=== PATIENT | male | born 1955 | race Caucasian/White ===

== ENCOUNTER 2020-02-19 06:19 | Outpatient (REF) | payer MEDICARE, SELFPAY ==
[2020-02-19 08:23] LABS: Estimated Average Glucose 148 mg/dL; Hemoglobin A1c % 6.8 %
[2020-02-19 08:33] LABS: Alanine Aminotransferase 50 U/L (0-40); Albumin Level 4.4 g/dL (3.5-5.0); Alkaline Phosphatase 51 U/L (39-117); Anion Gap 19 (12-20); Aspartate Amino Transferase 32 U/L (5-37); Bilirubin Total 0.9 mg/dL (0.0-1.0); Blood Urea Nitrogen 14 mg/dL (9-16); Calcium 9.3 mg/dL (8.4-10.2); Carbon Dioxide 22 mmol/L (22-29); Chloride 103 mmol/L (96-108); Cholesterol 242 mg/dL; Estimated Glomerular Filt Rate > 60; Glucose Fasting 150 mg/dL (60-99); HDL Cholesterol 45 mg/dL; LDL Cholesterol Calculated 162 mg/dl; Sodium 139 mmol/L (135-145); Triglycerides 176 mg/dL
[2020-02-19 08:54] LABS: Prostate Specific Antigen Scr 0.22 ng/mL (<0.05-4.0); TSH reflex Free T4 0.88 mIU/mL (0.32-4.0)
== END 2020-02-19 06:20 | disposition home or self-care (01) ==
LOC: HO.LAB 06:19
PROVIDERS: Visit Provider Physician Assistant
DX: E66.09 Other obesity due to excess calories (principal); Z68.37 Body mass index [BMI] 37.0-37.9, adult; Z13.1 Encounter for screening for diabetes mellitus; Z12.5 Encounter for screening for malignant neoplasm of prostate; Z13.220 Encounter for screening for lipoid disorders
CPT/HCPCS: 80053; 80061; 83036; 84153; 84443

== ENCOUNTER 2020-03-01 06:22 | Outpatient (REF) | payer MEDICARE, SELFPAY | END 2020-03-01 06:23 | disposition home or self-care (01) | LOC: HO.LAB 06:22 | PROVIDERS: PCP Physician Assistant; Visit Provider Internal Medicine | DX: Z20.828 Contact with and (suspected) exposure to other viral communicable diseases (principal) | CPT/HCPCS: C9803; U0003 ==

== ENCOUNTER 2020-06-22 07:11 | Outpatient (REF) | payer MEDICARE, SELFPAY ==
[2020-06-22 08:28] LABS: Hematocrit 51.8 % (42-52); Hemoglobin 17.1 g/dl (14.0-18.0); Mean Corpuscular Hemoglobin 29.9 pg (27.0-33.0); Mean Corpuscular Volume 90.7 fL (80-98); Mean Platelet Volume 10.8 fL (9.4-12.4); Platelet Count 209 X10*3/uL (160-400); Red Blood Count 5.71 X10*6/uL (4.60-5.80); Red Cell Distribution Width 13.2 % (11.0-16.0); White Blood Count 17.6 X10*3/uL (4.8-10.8)
[2020-06-22 08:58] LABS: Alanine Aminotransferase 25 U/L (0-40); Albumin Level 4.3 g/dL (3.5-5.0); Alkaline Phosphatase 58 U/L (39-117); Anion Gap 18 (12-20); Aspartate Amino Transferase 16 U/L (5-37); Bilirubin Total 1.7 mg/dL (0.0-1.0); Blood Urea Nitrogen 10 mg/dL (9-16); Calcium 9.3 mg/dL (8.4-10.2); Carbon Dioxide 27 mmol/L (22-29); Chloride 98 mmol/L (96-108); Cholesterol 230 mg/dL; Estimated Glomerular Filt Rate > 60; Glucose Fasting 159 mg/dL (60-99); HDL Cholesterol 65 mg/dL; LDL Cholesterol Calculated 132 mg/dl; Sodium 139 mmol/L (135-145); Triglycerides 167 mg/dL
[2020-06-22 09:20] LABS: Estimated Average Glucose 126 mg/dL
[2020-06-22 11:14] LABS: Creatinine Urine 171.66 mg/dL; Microalbum/Creatinine Ratio Ur 12.8 ug/mg cr
== END 2020-06-22 07:12 | disposition home or self-care (01) ==
LOC: HO.LAB 07:11
PROVIDERS: PCP Physician Assistant; Visit Provider Physician Assistant
DX: E11.9 Type 2 diabetes mellitus without complications (principal); I10 Essential (primary) hypertension
CPT/HCPCS: 36415; 80053; 80061; 82043; 83036; 85027

== ENCOUNTER 2020-11-25 05:56 | Outpatient (REF) | payer MEDICARE, SELFPAY ==
[2020-11-25 07:37] LABS: Hematocrit 47.9 % (42-52); Hemoglobin 16.1 g/dl (14.0-18.0); Mean Corpuscular HGB Conc 33.6 g/dl (31.0-36.0); Mean Corpuscular Hemoglobin 30.3 pg (27.0-33.0); Mean Corpuscular Volume 90.2 fL (80-98); Mean Platelet Volume 10.8 fL (9.4-12.4); Platelet Count 179 X10*3/uL (160-400); Red Blood Count 5.31 X10*6/uL (4.60-5.80); Red Cell Distribution Width 12.4 % (11.0-16.0); White Blood Count 7.5 X10*3/uL (4.8-10.8)
[2020-11-25 07:49] LABS: Alanine Aminotransferase 30 U/L (0-40); Albumin Level 4.4 g/dL (3.5-5.0); Alkaline Phosphatase 47 U/L (39-117); Anion Gap 13 (12-20); Aspartate Amino Transferase 18 U/L (5-37); Bilirubin Total 0.8 mg/dL (0.0-1.0); Blood Urea Nitrogen 14 mg/dL (9-16); Calcium 9.8 mg/dL (8.4-10.2); Carbon Dioxide 29 mmol/L (22-29); Chloride 104 mmol/L (96-108); Cholesterol 163 mg/dL; Estimated Glomerular Filt Rate > 60; Glucose Fasting 136 mg/dL (60-99); HDL Cholesterol 43 mg/dL; LDL Cholesterol Calculated 96 mg/dl; Potassium 4.5 mmol/L (3.3-5.1); Sodium 141 mmol/L (135-145); Total Protein 6.4 g/dL (6.5-8.0); Triglycerides 124 mg/dL
[2020-11-25 08:11] LABS: Prostate Specific Antigen Scr 0.21 ng/mL (<0.05-4.0)
[2020-11-25 10:01] LABS: Estimated Average Glucose 134 mg/dL; Hemoglobin A1c % 6.3 %
== END 2020-11-25 05:57 | disposition home or self-care (01) ==
LOC: HO.LAB 05:56
PROVIDERS: PCP Physician Assistant; Visit Provider Physician Assistant
DX: I10 Essential (primary) hypertension (principal); E78.2 Mixed hyperlipidemia; E11.9 Type 2 diabetes mellitus without complications; Z12.5 Encounter for screening for malignant neoplasm of prostate
CPT/HCPCS: 36415; 80053; 80061; 83036; 84153; 85027

== ENCOUNTER 2021-04-03 05:48 | Outpatient (REF) | payer MEDICARE, SELFPAY ==
[2021-04-03 07:50] LABS: Estimated Average Glucose 143 mg/dL; Hemoglobin A1c % 6.6 %
[2021-04-03 08:05] LABS: Alanine Aminotransferase 42 U/L (0-40); Albumin Level 4.4 g/dL (3.5-5.0); Alkaline Phosphatase 51 U/L (39-117); Anion Gap 11 (12-20); Aspartate Amino Transferase 21 U/L (5-37); Bilirubin Total 0.8 mg/dL (0.0-1.0); Blood Urea Nitrogen 12 mg/dL (9-16); Carbon Dioxide 30 mmol/L (22-29); Chloride 104 mmol/L (96-108); Cholesterol 184 mg/dL; Estimated Glomerular Filt Rate > 60; Glucose Fasting 148 mg/dL (60-99); HDL Cholesterol 49 mg/dL; LDL Cholesterol Calculated 106 mg/dl; Potassium 4.9 mmol/L (3.3-5.1); Sodium 140 mmol/L (135-145); Total Protein 6.9 g/dL (6.5-8.0); Triglycerides 148 mg/dL
[2021-04-03 08:28] LABS: TSH reflex Free T4 1.18 uIU/mL (0.32-4.0)
== END 2021-04-03 05:49 | disposition home or self-care (01) ==
LOC: HO.LAB 05:48
PROVIDERS: PCP Physician Assistant; Visit Provider Physician Assistant
DX: E11.9 Type 2 diabetes mellitus without complications (principal); E78.2 Mixed hyperlipidemia
CPT/HCPCS: 36415; 80053; 80061; 83036; 84443

== ENCOUNTER → 2021-04-17 12:47 | Outpatient (BNVA) | payer MEDICARE, SELFPAY | PROVIDERS: PCP Physician Assistant; Referring Provider Physician Assistant; Visit Provider Physician Assistant Surgical ==

== ENCOUNTER → 2021-04-18 13:49 | Outpatient (BNVA) | payer MEDICARE, SELFPAY | PROVIDERS: PCP Physician Assistant; Referring Provider Physician Assistant; Visit Provider Physician Assistant | DX: Z12.11 Encounter for screening for malignant neoplasm of colon (principal) | CPT/HCPCS: 99202 ==

== ENCOUNTER → 2021-05-12 08:38 | Outpatient (BNVA) | payer MEDICARE, SELFPAY | PROVIDERS: PCP Physician Assistant; Visit Provider Surgery | DX: Z13.89 Encounter for screening for other disorder (principal) | CPT/HCPCS: Q3014 ==

== ENCOUNTER 2021-05-16 05:59 | Outpatient (REF) | payer MEDICARE, SELFPAY ==
--- NOTE | ~2021-05-16 | XR_ITS ---
EXAMINATION: XR CHEST CLINICAL INFORMATION: Obesity COMPARISON: None TECHNIQUE: 2 views of the chest were obtained. FINDINGS: No significant abnormality is noted involving the heart, lungs, mediastinum, bony thorax or soft tissues. XR/XR chest 2V IMPRESSION: Unremarkable examination.
[2021-05-16 06:26] LABS: MANUAL DIFF FLAG NO
--- NOTE | 2021-05-16 06:32 | ECG_ITS ---
Test Reason : pre op Blood Pressure : / mmHG Vent. Rate : 073 BPM Atrial Rate : 073 BPM P-R Int : 174 ms QRS Dur : 084 ms QT Int : 382 ms P-R-T Axes : 066 025 030 degrees QTc Int : 420 ms Sinus rhythm with Premature atrial complexes Low voltage QRS Borderline ECG No previous ECGs available Referred By: Zelalem Adams Electronically Signed By:SHASHA NGO
[2021-05-16 07:05] LABS: Basophils Percent Auto 0.6 % (0-2); Eosinophils Absolute Auto 0.1 X10*3/uL (0.0-0.4); Eosinophils Percent Auto 1.1 % (0-4); Hematocrit 49.4 % (42.0-52.0); Hemoglobin 16.4 g/dl (14.0-18.0); Imm Gran Abs Auto 0.03 X10*3/uL (0.00-0.03); Imm Gran Pct Auto 0.4 % (0.0-0.4); Lymphocytes Absolute Auto 2.1 X10*3/uL (1.2-4.9); Lymphocytes Percent Auto 29.2 % (20-40); Mean Corpuscular HGB Conc 33.2 g/dl (31.0-36.0); Mean Corpuscular Hemoglobin 30.6 pg (27.0-33.0); Mean Corpuscular Volume 92.2 fL (80.0-98.0); Mean Platelet Volume 10.7 fL (9.4-12.4); Monocytes Absolute Auto 0.7 X10*3/uL (0.1-1.2); Monocytes Percent Auto 9.6 % (2-11); Neutrophils Absolute Auto 4.2 x10*3/uL (2.0-8.3); Neutrophils Percent Auto 59.1 % (45-73); Platelet Count 185 X10*3/uL (160-400); Red Blood Count 5.36 X10*6/uL (4.60-5.80); Red Cell Distribution Width 12.7 % (11.0-16.0); White Blood Count 7.2 X10*3/uL (4.8-10.8)
[2021-05-16 07:44] LABS: Alanine Aminotransferase 43 U/L (0-40); Albumin Level 4.5 g/dL (3.5-5.0); Alkaline Phosphatase 49 U/L (39-117); Anion Gap 12 (12-20); Aspartate Amino Transferase 20 U/L (5-37); Bilirubin Total 0.8 mg/dL (0.0-1.0); Blood Urea Nitrogen 12 mg/dL (9-16); C Reactive Protein 0.11 mg/dL (< or = 0.50); Carbon Dioxide 29 mmol/L (22-29); Chloride 104 mmol/L (96-108); Cholesterol 185 mg/dL; Estimated Glomerular Filt Rate > 60; Glucose Random 188 mg/dL (60-115); HDL Cholesterol 48 mg/dL; Iron 120 mcg/dL (45-160); LDL Cholesterol Calculated 108 mg/dl; Potassium 4.8 mmol/L (3.3-5.1); Sodium 140 mmol/L (135-145); Total Protein 6.8 g/dL (6.5-8.0); Triglycerides 149 mg/dL
[2021-05-16 07:57] LABS: Ferritin 194 ng/mL (20-250); Insulin 26 uU/mL (2-29); TSH reflex Free T4 1.12 uIU/mL (0.32-4.0); Vitamin D 25-OH Total 27.1 ng/mL (>30)
[2021-05-16 08:20] LABS: Estimated Average Glucose 154 mg/dL
[2021-05-16 08:28] LABS: Percent Iron Saturation 37 % (15-50); Total Iron Binding Capacity 326 mcg/dL (228-428); Unsaturated Iron Binding 206 ug/dL
[2021-05-16 08:49] LABS: Prostate Specific Antigen Scr 0.38 ng/mL (<0.05-4.0)
[2021-05-16 08:59] LABS: Vitamin B12 677 pg/mL (200-900)
[2021-05-17 13:01] LABS: Calcium (PTHI) 9.8 mg/dL (8.6-10.3); PTHI 65 pg/mL (14-64)
[2021-05-19 06:27] LABS: Zinc 74 mcg/dL (60-130)
[2021-05-19 13:00] LABS: Vitamin B1 12 nmol/L (8-30)
[2021-05-20 18:41] LABS: Vitamin A 60 mcg/dL (38-98)
== END 2021-05-16 06:00 | disposition home or self-care (01) ==
LOC: HO.LAB 05:59
PROVIDERS: PCP Physician Assistant; Visit Provider Surgery
DX: Z12.5 Encounter for screening for malignant neoplasm of prostate (principal); E11.9 Type 2 diabetes mellitus without complications; E78.2 Mixed hyperlipidemia; E66.09 Other obesity due to excess calories; Z68.37 Body mass index [BMI] 37.0-37.9, adult
CPT/HCPCS: 36415; 71046; 80053; 80061; 82306; 82607; 82728; 82746; 83036; 83525; 83540; 83970; 84153; 84425; 84443; 84590; 84630; 85025; 86140; 93005

== ENCOUNTER 2021-05-18 07:47 | Outpatient (REF) | payer MEDICARE, SELFPAY ==
[2021-05-19 13:28] LABS: H Pylori Breath Test Negative (Negative)
== END 2021-05-18 07:48 | disposition home or self-care (01) ==
LOC: CF 07:47
PROVIDERS: Visit Provider Surgery
DX: E11.9 Type 2 diabetes mellitus without complications (principal); E78.2 Mixed hyperlipidemia; E66.09 Other obesity due to excess calories; Z68.37 Body mass index [BMI] 37.0-37.9, adult
CPT/HCPCS: 36415; 83013; 99211

== ENCOUNTER → 2021-05-30 09:00 | Outpatient (BNVA) | payer MEDICARE, SELFPAY | PROVIDERS: PCP Physician Assistant; Visit Provider Counselor Mental Health | DX: E66.9 Obesity, unspecified (principal); F10.21 Alcohol dependence, in remission | CPT/HCPCS: 90791 ==

== ENCOUNTER → 2021-06-12 08:14 | Outpatient (BNVA) | payer MEDICARE, SELFPAY | PROVIDERS: PCP Physician Assistant; Visit Provider Surgery | DX: E66.09 Other obesity due to excess calories (principal); Z68.34 Body mass index [BMI] 34.0-34.9, adult | CPT/HCPCS: Q3014 ==

== ENCOUNTER → 2021-06-16 08:17 | Outpatient (BNVA) | payer MEDICARE, SELFPAY | PROVIDERS: PCP Physician Assistant; Visit Provider Dietitian, Registered | DX: E66.9 Obesity, unspecified (principal); E11.9 Type 2 diabetes mellitus without complications; Z71.3 Dietary counseling and surveillance | CPT/HCPCS: 97802 ==

== ENCOUNTER → 2021-06-21 07:35 | Outpatient (REF) | payer MEDICARE, SELFPAY ==
--- NOTE | ~2021-06-21 | NM_ITS ---
Lexiscan Myocardial perfusion study Indication: Preoperative vascular evaluation Technique: The patient was brought in for a Lexiscan perfusion study on 06/21/2021 and was injected 0.4 mg of Lexiscan intravenously. Within a minute of this injection 40 mCi of sestamibi was given intravenously. Images were obtained using the SPECT gamma camera interlaced with the gating device. Images were obtained in supine position. Resting perfusion study was performed on 06/22/2021. Patient was administered 40 mCi of sestamibi intravenously at rest. Images were then obtained in supine position. Total DLP 157mGy-cm. Images were processed with the software and compared side to side in short axis, horizontal long axis and vertical long axis views. Findings: Raw acquisition was reviewed. The stress perfusion study showed diminished tracer uptake along the inferolateral wall. With CT at admission correction, there is some improvement but not entirely. The gated study shows normal LV systolic function with calculated LVEF of 61%. LV cavity is normal in size. The gated study shows normal wall thickening and contraction of segments. Resting study shows diminished tracer uptake along the inferolateral wall. There is significant improvement with CT at admission correction suggestive of diaphragmatic attenuation artifact. Gating at rest reveals normal wall motion with ejection fraction at 52%. The findings are consistent with partially reversible inferolateral defect. NM/NM ranjit perf SPECT rest & str Impression: 1. Myocardial perfusion imaging study shows inferolateral defect with reversible/fixed components. Cannot differentiate if it is from body habitus or ischemia. 2. Gated LVEF is 61% during stress and 52% during rest. 3. Transient ischemic dilatation not present. EKG component of the test reported separately.
--- NOTE | 2021-06-21 07:48 | CA_ITS ---
Acquisition Time: 2021-06-21 08:06:39 Total Exercise Time: 00:02:00 Test Indications: PREOP Medications: SEE CHART Protocol: LEXISCAN Max HR: 107 BPM 70% of Pred: 152 BPM Max BP: 138/084 mmHG Max Work Load: 1.6 METS Pharmacological stress test with Lexiscan injection, while walking on treadmill, without anginal symptoms, with isolated PACs, with normotensive response to injection, with nondiagnostic EKG for ischemia. Nuclear images pending. Test reviewed with Dr Garzon. Referred By: Zelalem Adams Overread By: BARRINGTON GAFFNEY
== END ==
LOC: HO.CARD 07:35
PROVIDERS: Visit Provider Surgery
DX: R94.31 Abnormal electrocardiogram [ECG] [EKG] (principal)
CPT/HCPCS: 78452; 93017; A9500; J0280; J2785

== ENCOUNTER → 2021-06-26 08:17 | Outpatient (BNVA) | payer MEDICARE, SELFPAY | PROVIDERS: PCP Physician Assistant; Visit Provider Surgery | DX: E66.9 Obesity, unspecified (principal); Z68.35 Body mass index [BMI] 35.0-35.9, adult | CPT/HCPCS: Q3014 ==

== ENCOUNTER → 2021-06-28 07:12 | Outpatient (REF) | payer MEDICARE, SELFPAY ==
--- NOTE | 2021-06-28 07:16 | CA_ITS ---
Transthoracic Echocardiogram Patient (Last, First, Middle): Brooks Bower, Gender: Male Date of : 1955 Age: 66 Procedure Date: 06/28/2021 Procedure Type: Transthoracic Echocardiogram Location: OP Height: 195.58 cm Weight: 135.17 kg BSA: 2.65 m2 Heart Rate: bpm BP: 132 / 74 mmHg Manager Collection: YR/TO Referring MD: Zelalem Adams MD Director Security Management: Herb Puri MD Symptoms: R94.31 - Abnormal electrocardiogram [ECG] [EKG] Study Quality: Fair/Contrast ECG Rhythm: Sinus Conclusions: - 1. Normal LV systolic function with grade 1 diastolic dysfunction 2. Normal cardiac valvular Doppler 3. Mildly dilated ascending aorta 4. Normal RV systolic pressure 5. No pericardial effusion Findings Procedure Information Contrast agent, definity, is being given per protocol without apparent complications. Left Ventricle Normal left ventricular size, thickness, and systolic function. The visually estimated ejection fraction is between 60-65%. Spectral Doppler is indicative of an impaired relaxation filling pattern. E/E prime ratio is <8, consistent with normal filling pressures. Evidence suggests grade I (mild) diastolic dysfunction. there is mild focal hypertrophy of the basal septum without obstructive physiology Right Ventricle Normal right ventricular cavity size and systolic function. Atria The left atrium is normal in size. Interatrial shunt cannot be excluded. The right atrium was not well visualized. Aortic Valve The aortic valve structure and function is likely normal. There is no aortic valve stenosis. There is no aortic valve regurgitation. Mitral Valve Likely normal mitral valve structure and function. There is trace mitral valve regurgitation. There is no mitral valve stenosis. Pulmonic Valve The pulmonic valve was not well visualized. Tricuspid Valve Likely normal tricuspid valve structure and function. There is trace tricuspid valve regurgitation. The right ventricular systolic pressure is normal. The right ventricular systolic pressure is 12 mmHg. Normal right atrial pressure. There is no evidence of pulmonary hypertension. Great Vessels The pulmonary artery was not well visualized. There is mild dilatation of the ascending aorta measuring 3.80 cm. Venous The inferior vena cava is normal in size and collapses greater than 50% with inspiration. Pericardium/Pleural There is no evidence of pericardial effusion. Prior Study Comparison No prior study available for comparison. Measurements 2D Linear Measurements IVSd: 0.95 0.6-0.9/0.6-1.0 cm LVIDd: 4.37 3.9-5.3/4.2-5.9 cm LVIDd Index: 1.65 2.4-3.2/2.2-3.1 cm/m2 LVIDs: 3.08 2.0-3.6 cm LVPWd: 1.08 0.7-1.1 cm LA Diam: 4.00 2.7-3.8/3.0-4.0 cm LAIDs Index: 1.51 1.5-2.3 cm/m2 LV Mass: 186.35 67-162/88-224 g LV Mass Index: 70.32 43-95/49-115 g/m2 LVOT Diam: 2.60 3.0+(-)1.3 cm 2D Systolic Function EF 4C: 62.70 >55% EF 2C: 69.10 >55% EF BiP: 65.30 >55% Mitral Valve MV Pk E: 0.62 MV PK A: 0.95 MV Decel Time: 288.00 E/A: 0.70 E'Lateral: 5.66 E'Medial: 6.20 E/E' Med: 10.00 E/E' Lat: 11.00 PHT: 84.00 MVA PHT: 2.62 Decel [place]: 2.16 Aortic Valve AoV Pk Wilber: 1.07 AoV Mn Wilber: 0.76 AoV VTI: 0.23 AoV Pk Grad: 5.00 Aov Mn Grad: 3.00 KHOI Cont.VTI: 4.27 LVOT LVOT Pk Wilber: 1.01 LVOT Mn Wilber: 0.60 LVOT VTI: 0.18 LVOT Pk Grad: 4.00 LVOT Mn Grad: 2.00 LVOT Diam: 2.60 LVOT Area: 5.31 Diastolic Function MV Pk E: 0.62 MV Pk A: 0.95 E/A: 0.70 E'Medial: 6.20 E/E' Med: 10.00 E' Laterial: 5.66 E/E' Lat: 11.00 Right Ventricle TAPSE (mm): 20.90 TVS' Wilber: 13.20 Tricuspid Valve TR Pk Wilber: 1.49 TR Pk Grad: 9.00 RA Press: 3.00 RVSP: 12.00 Great Vessels Aorta Sinus of Valsalva: 3.69 2.0-3.[address] [place]: 3.30 1.7-3.4 cm Ao Asc: 3.80 2.1-3.4 cm Ao Arch: 3.30 Updated in Other Vendor System with Status of Final Herb Puri MD electronically signed on 06/29/2021 11:46:33 AM with status of Final
== END ==
LOC: HO.CARD 07:12
PROVIDERS: PCP Physician Assistant; Visit Provider Surgery
DX: Z01.810 Encounter for preprocedural cardiovascular examination (principal); R94.31 Abnormal electrocardiogram [ECG] [EKG]; E66.9 Obesity, unspecified
CPT/HCPCS: 93306; 99202; Q9957

== ENCOUNTER 2021-06-29 09:33 | Outpatient (REF) | payer MEDICARE, SELFPAY ==
--- NOTE | ~2021-06-29 | FL_ITS ---
EXAMINATION: XR FLUOROSCOPY UPPER GI WITH AIR CLINICAL INFORMATION: Obesity due to excess calories. COMPARISON: None TECHNIQUE: Routine upper GI contrast study was performed in upright and lying position. FINDINGS: Following oral administration of thick barium and effervescent granules, there is normal propagation of bolus from the oral cavity through the pharynx, esophagus into stomach without any evidence of obstruction, narrowing or stricture. No laryngeal penetration or aspiration seen. Mild prominent cricoesophageal sphincter is seen. On placing patient supine and prone, there is mild gastroesophageal reflux and a small sliding hiatal hernia. The rest of the visualized stomach, duodenum bulb and the sweep is normal caliber and course. The mucosal pattern of the stomach and the duodenum is normal except for a small diverticulum along the second segment of the duodenum within the C-loop. FLUOROSCOPY TIME: 2.1 minutes DOSE AREA PRODUCT: 29.5 uGy-m2 (microgray-meter squared) FL/FL upper GI w air IMPRESSION: Small sliding hiatal hernia with mild gastroesophageal reflux.
--- NOTE | ~2021-06-29 | US_ITS ---
EXAMINATION: US COMPLETE ABDOMEN WITH LIVER ELASTOGRAPHY CLINICAL INFORMATION: Obesity COMPARISON: None. TECHNIQUE: Real-time imaging of the abdominal viscera. Noninvasive ultrasound liver fibrosis assessment is performed using Marco A ElastPQ point quantification shear wave elastography (2D-SWE) with a C5-2 MHz transducer. Multiple elastography samples are obtained. FINDINGS: PANCREAS: Not well visualized due to overlying bowel gas. ABDOMINAL AORTA: Not well visualized due to bowel gas INFERIOR VENA CAVA: Not well visualized due to bowel gas LIVER: Liver echotexture is increased. Liver is normal in size and contour. No focal liver lesion or biliary duct dilatation. The right lobe measures 17 cm in length. The left lobe measures 13 cm in length. Portal flow is normal/hepatopedal Shear wave liver elastography median stiffness is 1.2 m/s (reference: normal median stiffness is 1.3 m/s or less). IQR/median stiffness to assess sampling precision is 0.11 (reference: good quality data set is IQR/median stiffness of 0.15 or less). GALLBLADDER: Gallbladder is not well visualized. There are gallstones in the gallbladder. Gallbladder appears normal in size. COMMON BILE DUCT: Normal in caliber measuring 0.4 cm in diameter. RIGHT KIDNEY: There is a 7 mm echogenic density in the lower pole suggestive of a stone. No hydronephrosis. No focal parenchymal lesions. The kidney measures 11.3 cm in maximum dimension. LEFT KIDNEY: There are 2 stones in the lower pole measuring 4 and 5 mm. There is a 1 cm simple cyst exophytic to the lateral lower pole. No hydronephrosis. The kidney measures 12.8 cm in maximum dimension. SPLEEN: Normal. The spleen measures 11 cm in maximum dimension. FREE FLUID: None. US/US abdomen comp w elastography IMPRESSION: 1. Impression: Limited exam. Echogenic liver. Gallstones. Bilateral renal stones and left renal cyst. Limited visualization of the pancreas, aorta, IVC and gallbladder. 2. Liver elastography: Adequate liver sampling. Normal liver stiffness. REFERENCE: Society of Radiologists in Ultrasound Liver Stiffness Thresholds (2020): LIVER STIFFNESS THRESHOLDS: *Liver Stiffness equal or less than 1.3 m/s: High probability of being normal. *Liver Stiffness less than 1.7 m/s: In the absence of other known clinical signs, rules out compensated advanced chronic liver disease. *Liver Stiffness 1.7-2.1 m/s: Suggestive of compensated advanced chronic liver disease but need further test for confirmation. *Liver Stiffness over 2.1 m/s: Rules in compensated advanced chronic liver disease. *Liver Stiffness over 2.4 m/s: Suggestive of clinically significant portal hypertension. QUALITY OF DATA SET: *IQR/Median value equal or less than 0.15 implies a quality data set. *IQR/Median value over 0.15 implies a poor quality data set. SIGNIFICANT CHANGE FROM PRIOR EXAM: Significant change if liver stiffness measurement is 10% or greater from prior exam. OTHER CONSIDERATIONS: The stage of liver fibrosis may be overestimated in the setting of acute hepatitis, liver inflammation, elevated liver function tests, hepatic vascular congestion, obstructive cholestasis, non-fasting state, and infiltrative diseases such as amyloidosis and lymphoma. In some patients with NAFLD, the liver stiffness thresholds for compensated advanced chronic liver disease may be lower. In causes other than viral hepatitis and NAFLD, liver stiffness thresholds are not well established.
== END 2021-06-29 09:34 | disposition home or self-care (01) ==
LOC: HO.US 09:33
PROVIDERS: Visit Provider Surgery
DX: E66.09 Other obesity due to excess calories (principal); Z68.37 Body mass index [BMI] 37.0-37.9, adult; E11.9 Type 2 diabetes mellitus without complications; E78.2 Mixed hyperlipidemia
CPT/HCPCS: 74246; 76705; 76981

== ENCOUNTER → 2021-06-30 12:45 | Outpatient (BNVA) | payer MEDICARE, SELFPAY | PROVIDERS: PCP Physician Assistant; Referring Provider Physician Assistant; Visit Provider Surgery | DX: Z13.89 Encounter for screening for other disorder (principal) ==

== ENCOUNTER 2021-07-04 06:16 | Inpatient (IN) | payer MEDICARE, SELFPAY ==
[2021-06-27 06:20] LABS: MANUAL DIFF FLAG NO
[2021-06-27 07:41] LABS: Basophils Percent Auto 0.4 % (0-2); Eosinophils Absolute Auto 0.1 X10*3/uL (0.0-0.4); Eosinophils Percent Auto 0.9 % (0-4); Hematocrit 51.3 % (42.0-52.0); Hemoglobin 16.9 g/dl (14.0-18.0); Imm Gran Abs Auto 0.01 X10*3/uL (0.00-0.03); Imm Gran Pct Auto 0.1 % (0.0-0.4); Lymphocytes Absolute Auto 1.9 X10*3/uL (1.2-4.9); Lymphocytes Percent Auto 27.5 % (20-40); Mean Corpuscular HGB Conc 32.9 g/dl (31.0-36.0); Mean Corpuscular Hemoglobin 29.9 pg (27.0-33.0); Mean Corpuscular Volume 90.8 fL (80.0-98.0); Mean Platelet Volume 11.4 fL (9.4-12.4); Monocytes Absolute Auto 0.8 X10*3/uL (0.1-1.2); Monocytes Percent Auto 11.9 % (2-11); Neutrophils Absolute Auto 4.1 x10*3/uL (2.0-8.3); Neutrophils Percent Auto 59.2 % (45-73); Platelet Count 179 X10*3/uL (160-400); Red Blood Count 5.65 X10*6/uL (4.60-5.80); Red Cell Distribution Width 12.5 % (11.0-16.0); White Blood Count 6.9 X10*3/uL (4.8-10.8)
[2021-06-27 07:57] LABS: INTERNATIONAL NORM RATIO 1.1 (0.9-1.1); Prothrombin Time 12.3 SEC (9.9-13.0)
[2021-06-27 08:00] LABS: Partial Thromboplastin Time 43.7 SEC (24.1-38.0)
[2021-06-27 08:04] LABS: Estimated Average Glucose 123 mg/dL; Hemoglobin A1c % 5.9 %
[2021-06-27 08:05] LABS: Alanine Aminotransferase 40 U/L (0-40); Albumin Level 4.7 g/dL (3.5-5.0); Alkaline Phosphatase 51 U/L (39-117); Anion Gap 12 (12-20); Aspartate Amino Transferase 23 U/L (5-37); Bilirubin Total 1.1 mg/dL (0.0-1.0); Blood Urea Nitrogen 15 mg/dL (9-16); Calcium 10.3 mg/dL (8.4-10.2); Carbon Dioxide 29 mmol/L (22-29); Chloride 103 mmol/L (96-108); Cholesterol 166 mg/dL; Estimated Glomerular Filt Rate > 60; Glucose Random 113 mg/dL (60-115); HDL Cholesterol 36 mg/dL; LDL Cholesterol Calculated 105 mg/dl; Potassium 4.3 mmol/L (3.3-5.1); Sodium 140 mmol/L (135-145); Total Protein 7.1 g/dL (6.5-8.0); Triglycerides 129 mg/dL
[2021-06-27 08:27] LABS: Insulin 13 uU/mL (2-29); TSH reflex Free T4 1.38 uIU/mL (0.32-4.0)
[2021-06-29 11:48] VITALS: BP 156/78; PULSE 68; RESP 20; O2SAT 97; BMI 35.3
--- NOTE | 2021-06-29 12:06 | HO.ANESPROP2 ---
Documented by User: Nicolle Schneider NP 06/29/21 12:21 HPI - Anesthesia Eval Consult details Narrative: 66yo M for Gastrectomy Sleeve,EGD,poss diaphragmatic hernia,poss ventral hernia,poss open, Per Cardiology In the recent EKG, underlying rhythm was sinus at 73/Min; no significant ST-T changes and otherwise unremarkable. In the stress perfusion imaging, there was inferolateral defect with reversible/fixed components.? Could not definitively say if it is from his body weight or from true CAD/ischemia. Echocardiogram was just completed and yet to be reviewed. Overall, discussed about the findings with patient.? Offered additional testing with a diagnostic cardiac catheterization.? He stated that he would rather not have anything else beyond what he has already had so far.? Hence may proceed with the proposed bariatric surgery as planned.? Cardiac risk would be considered intermediate.? This was discussed with the patient including risk of perioperative myocardial infarction.? He understands.? May proceed as planned. Discussed risk r/t anesthesia and unknown CAD/ischemia. Pt verbalized understanding. Would like to proceed as described by supply specialist above. [facility] Active Problems Active Problems: All Active Problems (Updated 06/29/21 @ 12:01 by Mounika Jones RN) Screening for diabetes mellitus (DM) (Acute) Screening for hypercholesterolemia (Acute) Screening PSA (prostate specific antigen) (Acute) Obese (Acute) Colon cancer screening (Acute) DMII (diabetes mellitus, type 2) (Acute) HLD (hyperlipidemia) (Acute) Medicare annual wellness visit, initial (Acute) Tendinopathy of left shoulder (Acute) BMI 36.0-36.9,adult (Acute) Vitamin D deficiency (Acute) Abnormal EKG (Acute) BMI 35.0-35.9,adult (Acute) GERD (gastroesophageal reflux disease) (Acute) Preoperative cardiovascular examination (Acute) Abnormal myocardial perfusion study (Acute) Migraines (Acute) DJD (degenerative joint disease) (Acute) Obesity (BMI 30.0-34.9) (Acute) Past Medical History Medical History (Updated 06/29/21 @ 12:01 by Mounika Jones RN) Arthritis COVID-19 vaccine series completed Diabetes DJD (degenerative joint disease) Elevated cholesterol Lumbar disc disease Migraines Obesity (BMI 30.0-34.9) Family History Family History Father Diabetes Heart problem Mother Breast cancer Diverticulitis Family history of problems with anesthesia: No Surgical History Surgical History (Updated 06/29/21 @ 11:44 by Mounika Jones RN) H/O colonoscopy Hernia Hx of arthroscopic knee surgery Hx of tooth extraction Rupture of right patellar tendon History of Problems with Anesthesia: No Social History Social History Housing: House Are you a primary careers adviser to a significant other at home: No Do you presently have visiting nurse or other home services: No Alcohol intake: current Alcohol intake frequency: does not drink Patient Tobacco Use Status: Former Tobacco user Quit Date: age 28 Tobacco use type: Cigarette Years Smoked: 10 e-Cigarette/Vaping Use: Never Used Use of substances other than those prescribed or required for medical reasons: No Have you been hit, kicked, punched, or otherwise hurt by someone within the past year? If so, by whom?: No Are you DNR?: No Advance Directives Information Provided: Yes (brochure given) Advance Directives on File: No Recently lost weight without trying: No Eating poorly because of decreased appetite: No Nutrition Risks: No Nutritional Risk Poor oral hygiene: No (upper & lower full dentures) Narrative Narrative: No recent illness No CP/SOB with > 4 mets Meds Allergies Allergy/AdvReac Type Severity Reaction Status Date / Time No Known Allergies Allergy Verified 07/04/21 06:33 [No Known Allergies*] Home Medications Medication Instructions Recorded Confirmed Last Taken Type multivitamin 1 tab PO DAILY 06/29/21 07/04/21 07/03/21 History topiramate 25 mg tablet 25 mg PO BEDTIME 06/29/21 07/04/21 07/03/21 History Exam Exam Date and Time: June 29, 2021 1206 Height,Weight and Vital Signs: Height 6 ft 5 in Weight 135.1 kg Last Vital Signs Pulse 68 06/29/21 11:48 Resp 20 06/29/21 11:48 BP 156/78 H 06/29/21 11:48 Pulse Ox 97 06/29/21 11:48 Pertinent Lab Results Pertinent Lab Results: Laboratory Tests 06/27/21 06/27/21 06/27/21 06:07 06:07 06:07 WBC 6.9 RBC 5.65 Hgb 16.9 Hct 51.3 MCV 90.8 MCH 29.9 MCHC 32.9 RDW 12.5 Plt Count 179 MPV 11.4 Immature Gran % (Auto) 0.1 Neut % (Auto) 59.2 Lymph % (Auto) 27.5 [place] % (Auto) 11.9 H Eos % (Auto) 0.9 Baso % (Auto) 0.4 Lymph # (Auto) 1.9 [place] # (Auto) 0.8 Eos # (Auto) 0.1 Baso # (Auto) 0.0 Abs Immat Gran (auto) 0.01 Absolute Neuts (auto) 4.1 Absolute Nucleated RBC 0.000 Nucleated RBC % (auto) 0.0 PT 12.3 INR 1.1 APTT 43.7 H Sodium 140 Potassium 4.3 Chloride 103 Carbon Dioxide 29 Anion Gap 12 BUN 15 Creatinine 0.87 Estim Creat Clear Calc TNP Estimated GFR > 60 Random Glucose 113 D Estimat Average Glucose Hemoglobin A1c % Insulin Level 13 Calcium 10.3 H Total Bilirubin 1.1 H AST 23 ALT 40 Alkaline Phosphatase 51 C-Reactive Protein 0.10 Total Protein 7.1 Albumin 4.7 Triglycerides 129 Cholesterol 166 LDL Cholesterol, Calc 105 HDL Cholesterol 36 D TSH 1.38 Blood Type Antibody Screen 06/27/21 06/27/21 06:07 06:07 WBC RBC Hgb Hct MCV MCH MCHC RDW Plt Count MPV Immature Gran % (Auto) Neut % (Auto) Lymph % (Auto) [place] % (Auto) Eos % (Auto) Baso % (Auto) Lymph # (Auto) [place] # (Auto) Eos # (Auto) Baso # (Auto) Abs Immat Gran (auto) Absolute Neuts (auto) Absolute Nucleated RBC Nucleated RBC % (auto) PT INR APTT Sodium Potassium Chloride Carbon Dioxide Anion Gap BUN Creatinine Estim Creat Clear Calc Estimated GFR Random Glucose Estimat Average Glucose 123 Hemoglobin A1c % 5.9 Insulin Level Calcium Total Bilirubin AST ALT Alkaline Phosphatase C-Reactive Protein Total Protein Albumin Triglycerides Cholesterol LDL Cholesterol, Calc HDL Cholesterol TSH Blood Type AB Positive Antibody Screen NEGATIVE Narrative Narrative: EKG 04/2021 Vent. Rate : 073 BPM ? ? Atrial Rate : 073 BPM ?? P-R Int : 174 ms? QRS Dur : 084 ms ? ? QT Int : 382 ms ? ? ? P-R-T Axes : 066 025 030 degrees ?? QTc Int : 420 ms ? Sinus rhythm with Premature atrial complexes Low voltage QRS Borderline ECG No previous ECGs available ECHO 06/2021 Conclusions: - 1.? Normal LV systolic function with grade 1 diastolic ? dysfunction? 2.? Normal cardiac valvular Doppler? 3. Mildly dilated ascending aorta? 4.? Normal RV systolic pressure? 5.? No pericardial effusion? ? ? NM ranjit perf SPECT rest & str 05/2021 Impression: ? 1.? Myocardial perfusion imaging study shows inferolateral defect with reversible/fixed components. Cannot differentiate if it is from body habitus or ischemia. 2.? Gated LVEF is 61% during stress and 52% during rest. 3. Transient ischemic dilatation not present. ? EKG component of the test reported separately. (Nondiagnostic) Airway Mallampati Class: II (Small mouth) TM Dist: >3cm Neck ROM: Full Denture: Upper and Lower Heart: RRR Lungs: CTAB Assessment and Plan Assessment Anesthesia Assessment: Anesthesia Plan Discussed and PAT Visit Final Anesthetic Review Family History of Problems with Anesthesia: No History of Problems with Anesthesia: No Documented by User: Christopher Tran MD 07/04/21 07:27 [facility] Past Medical History Medical History (Updated 06/29/21 @ 12:01 by Mounika Jones RN) Arthritis COVID-19 vaccine series completed Diabetes DJD (degenerative joint disease) Elevated cholesterol Lumbar disc disease Migraines Obesity (BMI 30.0-34.9) Family History Family History Father Diabetes Heart problem Mother Breast cancer Diverticulitis Surgical History Surgical History (Updated 06/29/21 @ 11:44 by Mounika Jones RN) H/O colonoscopy Hernia Hx of arthroscopic knee surgery Hx of tooth extraction Rupture of right patellar tendon Social History Social History Housing: House Are you a primary careers adviser to a significant other at home: No Do you presently have visiting nurse or other home services: No Alcohol intake: current Alcohol intake frequency: does not drink Patient Tobacco Use Status: Former Tobacco user Quit Date: age 28 Tobacco use type: Cigarette Years Smoked: 10 e-Cigarette/Vaping Use: Never Used Use of substances other than those prescribed or required for medical reasons: No Have you been hit, kicked, punched, or otherwise hurt by someone within the past year? If so, by whom?: No Are you DNR?: No Advance Directives Information Provided: Yes (brochure given) Advance Directives on File: No Recently lost weight without trying: No Eating poorly because of decreased appetite: No Nutrition Risks: No Nutritional Risk Poor oral hygiene: No (upper & lower full dentures) Meds Allergies Allergy/AdvReac Type Severity Reaction Status Date / Time No Known Allergies Allergy Verified 07/04/21 06:33 [No Known Allergies*] Home Medications Medication Instructions Recorded Confirmed Last Taken Type multivitamin 1 tab PO DAILY 06/29/21 07/04/21 07/03/21 History topiramate 25 mg tablet 25 mg PO BEDTIME 06/29/21 07/04/21 07/03/21 History Assessment and Plan Final Anesthetic Review NPO: Yes ASA Class: III Final Preanesthetic Review: No Changes in Pt Med Stat, Meds/Allgs Chart Reviewed, Consent Obtained/Reviewed and Anes Risks/Benef Reviewed Patient Risk: Intermediate Procedure Risk: Intermediate Assessment/Block/Sedation in SS: Assess/Block/Sedation-SS Anesthetic Plan Anesthetic Plan: GA and Agree w/ Assess. and Plan Disposition: Standard PACU
--- NOTE | 2021-07-01 12:40 | MHC.SHP ---
Pre-Procedural Eval Section A Date of Service: 07/01/21 The patient is an INPATIENT: Yes The History & Physical has been completed within 30 days and I have reviewed it.: Yes Section B Chief Complaint: Obesity, Relevant Family History (Specify if Yes): No Relevant Social History: None Present Medications: None Medical History: No relevant PMH History of Previous Operations: No relevant previous surgery Allergies: Allergies Allergy/AdvReac Type Severity Reaction Status Date / Time No Known Allergies Allergy Verified 06/28/21 09:08 [No Known Allergies*] Review of Systems Sugical H&P ROS: Negative: Constitution, Cardiovascular, Respiratory, Neurological, Psychiatric, Hem-Onc, Allergic/Immunologic, Gastrointestinal, Genitourinary, Musculoskeletal, Integumentary, Endocrine and Eyes/Ears/Nose/Throat Exam Surgical H&P Exam: Normal: HEENT, Normal: Heart, Normal: Lungs, Normal: Extremities, Normal: Abdomen, Normal: Skin and Normal: Neurological Plan Diagnosis/Plan: Unchanged I have reviewed the history and physical and performed a pertinent physical examination on my patient. No changes have occurred unless specified.
[2021-07-03 12:43] LABS: COVID-19 Test Negative (Negative); IDNOW Serial# 16C4AD1C
[2021-07-04] VITALS (16 sets, daily range): BP systolic 146–199; BP diastolic 67–105; PULSE 75–91; RESP 16–20; TEMP 36.6–37.7; O2SAT 92–99
[2021-07-04 06:32] LABS: Glucose, Whole Blood 118 mg/dL (60-115)
[2021-07-04] MEDS: Lactated Ringers 1,000 ML 100 ML IVCONT ×2 (07:01→13:21)
[2021-07-04] MEDS: Lactated Ringers 1,000 ML 999 ML IV (07:02)
--- NOTE | 2021-07-04 12:22 | P.DS_ITS ---
DS: Providers Provider Date of Service: 07/05/21 Date of admission: 07/04/21 06:16 Primary care physician: Jorge Parikh PA-C DS: Summary Hospital Course Hospital Course: ADMITTING DIAGNOSIS: morbid obesity, DM, hyperlipidemia, migraines, hiatal hernia DISCHARGE DIAGNOSIS: same, s/p laparoscopic sleeve gastrectomy and repair diaphragmatic hernia PAST SURGICAL HISTORY: abdominal hernia, orthopedic procedures PROCEDURE: upper endoscopy, laparoscopic sleeve gastrectomy and repair of diaphragmatic hernia hernia DISCHARGE SUMMARY: History of Present Illness: The patient is a 66 year-old woman with a BMI of 36.6 kg/m2 and associated co- morbidities as described above. The patient had extensive work-up,lost 19.8 lbs preoperatively and was electively scheduled for laparoscopic, possible open sleeve gastrectomy and gastropexy. Risks and complications of the surgery were discussed with the patient in advance, particularly the possibility of , pulmonary embolism, anastomotic leak, bleeding, bowel injury, GERD, cardiac, renal or pulmonary complications. The patient understood all the risks and was in agreement with the surgical plan. Hospital Course: The patient underwent an uneventful laparoscopic sleeve gastrectomy with gastropexy and repair of diaphragmatic hernia on the day of admission. Postoperatively, the patient was transferred to the surgical floor. The patient received IV Acetaminophen and IV dilaudid for pain control. Patient was started on bariatric phase 1 diet POD #0. On postoperative day one, the patient was feeling well without nausea, vomiting, fevers, or tachycardia. The patient had some mild incisional pain and the abdomen was soft. On the morning of postoperative day one, the patient was continued on 1 ounce of water or ice every half hour. During the day, the patient did fairly well, having some incisional pain, but able to ambulate adequately and to tolerate liquids well. Since the patient is doing well, we decided that the patient was ready to be discharged. The patient was given instructions to follow-up with me next week and to call my office for any fever over 101, persistent abdominal pain, nausea, vomiting, GERD, symptoms of DVT such as calf tenderness, or leg swelling, or pulmonary embolism such as chest pain or shortness of breath. The patient was also instructed to drink 40-60 ounces of liquids per day using the 1-ounce cups. The patient had been given prescriptions for Tylenol for pain, Zofran prn for nausea, and pantoprazole and carafate previously. The patient was encouraged to ambulate and use the incentive spirometer. The patient was allowed to shower, but no baths, and encouraged to stay active at home. All of these instructions were given to the patient personally. All questions were answered and the patient understood all instructions, the instructions were also given to the patient in print. Time Spent with Patient Time attestation: Total time spent providing and/or coordinating discharge services: Discharge coordination time: Less than 30 minutes Quality: Safe Use of Opioids Does Pt have an Active Cancer Diagnosis on the Problem List?: No Quality: Stroke Does the patient have a stroke diagnosis?: No Physical Exam Vital Signs: Vital Signs: Last Vital Signs Temp 97.9 F 07/04/21 06:36 Pulse 83 07/04/21 06:36 Resp 16 07/04/21 06:36 BP 180/91 H 07/04/21 06:36 Pulse Ox 97 07/04/21 06:36 BMI result Body Mass Index 35.3 DS: Data Data Completed and Pending Pending studies at discharge: Pending at discharge 07/04/21 11:58 Surgical [PTH] Routine Labs on day of discharge: Laboratory Results - last 24 hr 07/03/21 07/04/21 12:18 06:28 POC Glucose 118 H COVID-19 ([facility]) Negative COVID-19 Clin Com See Note Discharge Plan Discharge Anticipated Discharge Date/Time: 07/05/21 10:18 Patient Disposition: Home, Self-Care Discharge Diagnosis: s/p sleeve gastrectomy, HH repair Referrals: Jorge Parikh PA-C [Primary Care Provider] - 1 Week Discharge Medications: Continued simvastatin 20 mg tablet 20 mg PO DAILY 90 Days Qty: 90 1RF topiramate 25 mg tablet 25 mg PO BEDTIME 0RF pantoprazole 40 mg tablet,delayed release (DR/EC) 40 mg PO DAILY Qty: 30 2RF sucralfate 100 mg/mL suspension 10 ml PO BID Qty: 400 2RF ondansetron HCl 4 mg tablet 4 mg PO Q12H Qty: 20 0RF Discharge Orders: Discharge Order (Routine); Ordered 07/05/21 Ordered By: Zelalem Adams Diet: other Activity on Discharge: No heavy lifting Stand Alone Forms: Patient Portal Discharge page Care Plan Goals: weight loss Health Concerns: morbid obesity Plan of Treatment: No tub baths, sex or returning to work until discussed at first post op appointment. No exercise, alcohol, tobacco or illegal drug use. Continue to use incentive spirometer hourly while awake. Walk in home for 5- 10 minutes every 2 hours during the first week. Continue phase 1 diet today and start phase 2 diet tomorrow morning. Follow all instructions in the bariatric handbook and call with any questions. 1. Please call your doctor or come back to the emergency room should any new symptoms arise. 2. You will receive a courtesy call from [facility] 24-48 hours after discharge. 3. Activity: abstain from alcohol, practice limited stair climbing, no bending, no driving, no exercise, no illicit substances, no lifting, no sex, no tub bath, no work. 4. Diet: continue as discussed with Dr. Adams. 5. Dressing Change/Wound Care: Do not change or remove surgical dressings unless they are wet or soiled. 6. Call your doctor if: - Your temperature exceeds 101.5 F - You experience excessive pain or swelling - You have an unexpected reaction to medication - You have excessive bleeding - You experience continued vomiting/nausea - Your incision begins to separate - Your incision shows signs of infection such as increased redness, swelling, excessive pain, heat, or drainage (light blood or clear fluid is normal) 7. General instructions: No lifting greater than 5 lbs for the next 4 weeks. No driving within 24 hours of taking narcotic pain medications. If you do not move your bowels in the next 2 days, please take milk of magnesia over the counter. Please follow the post op diet and do not advance your diet until you are seen in the office in about 2 weeks. Please walk around your home every hour or two to prevent blood clots from forming in your legs. You do not need to wake from sleeping to walk. Please sleep in a bed or couch to prevent kinking at the hips and knees. Please take your incentive spirometer (your [facility]) home with you and use it for the next few days to prevent pneumonias. You may shower, no hot tubs, baths or swimming pools. Please call the office with any questions or concerns such as increasing abdominal pain, fever, chills, shortness of breath, chest pain, leg pain or swelling, or redness or drainage from your incisions. D o not hesitate to contact the office with any questions at . The patient's medical history has been reviewed and they are considered low risk for post op DVT and therefore DVT prophylaxis is not considered necessary. Travel after surgery was reviewed. The patient has not disclosed any travel plans during the first 30 days after surgery and they have been advised that within the first 30 days after surgery any bus, plane, train or car travel over 2 hours in duration is contraindicated due to the possibility of developing blood clots from immobility. Any travel, needs to include periods of ambulation of 10 minutes in duration every 2 hours. The patient was instructed to discuss any plans for travel during this period with their bariatric surgeon. Assessment: stable, post op sleeve gastrectomy and hiatal hernia repair
[2021-07-04] MEDS: Famotidine/PF 20 MG/2 ML VIAL IVPUSH ×2 (12:35→20:47)
--- NOTE | 2021-07-04 12:38 | PM.OP ---
Brief Operative Note Date of Service: 07/04/21 Pre-op diagnosis: Severe obesity with comorbidities (see below) Post-op diagnosis: same (& incarcerated diaphragmatic hernia) Procedure: INITIAL PATIENT BMI ON PRESENTATION AT OUR OFFICE: 36.7 kg/m2 LAST BMI BEFORE SURGERY: 33.8 kg/m2 COMORBIDITIES: non-insulin dependent diabetes, hyperlipidemia, migraines, DJD, GERD, diaphragmatic hernia, liver steatosis, grade I diastolic dysfunction ?The patient presented to the Weight Management Program with significant obesity that was negatively impacting the patient's comorbidities as listed above.? The program is a phased program with a special focus on preoperative medical weight management to promote substantial weight loss and prepare the patients for the second phase of the program: bariatric surgery. The patient participated in an intensive weekly lifestyle ?intervention and exercise program during which the patient ?has lost between the initial office visit and the last preoperative visit 26.2lbs, or 8.47% of initial actual body weight. It was deemed appropriate for the patient to now have bariatric surgery. In light of the current Covid-19 pandemic and the well documented strong association of obesity and increased risk of worse outcomes if infected with Covid-19 (REFERENCES:https://pubmed.ncbi.nlm.nih.gov/24227830/,?https://pubmed.ncbi.nlm.nih.gov/16230110/), any delay in undergoing bariatric surgery may lead to the patient's worsening health condition and increased?risk of more severe Covid-19 disease if infected. In addition a recent?study from [facility] published in [facility] on 03/20/2021 ([email or web address]) found that, among patients with obesity, substantial weight loss achieved with surgery was associated with improved outcomes of COVID-19 infection. The findings suggest that obesity can be a modifiable risk factor for the severity of COVID-19 infection. In addition, the patient met the BMI-criteria for bariatric surgery based on the BMI on initial presentation. The patient should not be penalized for achieving such weight loss because ?it is not sustainable long-term without surgical intervention and it was achieved in preparation for bariatric surgery ?under my direction and based on my published research ([email or web address]:/[email or web address]).pdf and?https://www.soard.org/article/[email or web address](42)23730-X/pdf) ?that a 10% preoperative weight loss improves long-term weight loss after surgery and reduces perioperative complications.? Insurance carriers such as [facility] have endorsed my recommendations ?and have included in their policies criteria to include a 10% preoperative weight loss requirement. PROCEDURE: Esophago-gastroscopy, laparoscopic repair of incarcerated diaphragmatic hernia, laparoscopic lysis of adhesions, laparoscopic sleeve gastrectomy and laparoscopic gastropexy INDICATIONS: This is a 66 year-old male who was electively scheduled for laparoscopic, possibly open sleeve gastrectomy. The risks and complications of the procedure were discussed with the patient in advance, particularly the possibility of ; pulmonary embolism; staple line leak; bleeding; GERD; cardiac, pulmonary, or renal complications; as well as long-term problems such as insufficient weight loss, vitamin deficiency, strictures, or ulcers. The patient understood all the risks, and was in agreement to proceed with surgery. DESCRIPTION OF PROCEDURE: After informed consent was obtained from the patient, the patient was given preoperative antibiotics, and was transferred to the operating room. After successful induction of general anesthesia, pneumatic compression devices were placed on both lower extremities. An upper endoscopy was performed next. The oropharynx and esophagus appeared to be within normal limits. There was a large incarcerated diaphragmatic hernia present of moderate size consistent with the findings of the preoperative upper GI. The stomach was entered. Then after all fluid and air were suctioned and the stomach was fully decompressed, the scope was withdrawn and secured in the mid esophagus. The patient was then prepped and draped in the usual sterile manner, and abdominal access was established at the right upper quadrant with the Kel technique. A 12 mm blunt port was inserted, and the abdomen was insufflated with CO2 to a pressure of 15 mmHg. Under direct visualization, additional ports were placed, specifically two 5 mm Versi-step ports to the left upper quadrant, and a 5 mm Versi-Step port to the right upper quadrant. 1% lidocaine plain was used to infiltrate all port sites as well as all fascia defects. Following that, the patient was placed in a steep reverse Trendelenburg position. An additional 5 mm port was placed to the right flank for the Mediflex retractor that was used to retract the left lobe of the liver. The gastro-esophageal fat pad was extremely large and was incarcerated into the hiatus anteriorly. This was completely dissected with the ultrasonic device (Thunderbeat, Olympus) and a a large piece of it was amputated and sent as a specimen. This allowed the anterior esophagus and hiatus to be exposed. The angle of His was opened with the ultrasonic device the fundus of the stomach from any diaphragmatic and splenic attachments. I then opened the gastrocolic ligament between the transverse colon and the greater curvature of the stomach with the ultrasonic device to enter the lesser sac and facilitate the ligation of the short gastric vessels. I started at a mid-point along the greater curvature and using the Thunderbeat, all short gastric vessels were divided all the way to the angle of His until the left tony was completely dissected at its entirety. I then divided the gastro-colic ligament distally to a distance of about 3-4 cm proximal to the pylorus. There were extensive congenital adhesions between the pancreas and posterior gastric wall. Those were lysed completely with the ultrasonic device. Adhesiolysis took approximately 45 min to complete. There was an obvious significant-sized incarcerated hiatal hernia. I continued dissecting along the hiatus toward the left tony and the angle of His. I fully mobilized the fat pad that was incarcerated in the hernia. Along the right tony there was a large vessel, probably a replaced lef thepatic artery which was preserved. This vessel in combination with the large amount of fat in the area did not allow dissection of the posterior retro-esophageal space. The right otny was dissected above the vesselt all the way anterior to the esophagus.I continued to mobilize the esophagus into the mediastinum circumferentially. At that point, I was able to have at least 3 to 5 cm of esophagus into the abdomen.? After I completely mobilized the esophagus from both the left and right tony and I had a good mobilization of the esophagus circumferentially, I closed the hernia defect with three interrupted #0 Surgidac sutures using the Endo Stitch device, all of which were placed anterior to the esophagus. ? The stomach was then divided transversely with one Endo NATE-45 purple, three NATE-45 orange loads and four NATE-60 articulating orange loads using the AEON stapler and loads. Every effort was made that the gastric sleeve had a tubular shape and an even caliber throughout. Once the sleeve resection was completed, the staple line of the gastric sleeve was reinforced with Hemoclips. The resected stomach was retrieved without difficulty from the Kel port. A gastropexy was then performed in order to prevent postoperative GERD and partial gastric volvulus. Several interrupted 2.0 Surgidac sutures were placed between the sleeve's staple line and the previously divided greater omentum and gastro-colic ligament using the Endo-Stitch device. ?An upper endoscopy was performed. There was no narrowing at the GE junction. The scope was easily advanced all the way to the pylorus which was clearly visualized. There was no narrowing anywhere and the sleeve's caliber was even throughout. The sleeve's staple line was inspected and there was no evidence of ischemia, bleeding or dehiscence. At that point the gastroscope was withdrawn from the patient?s mouth while we were decompressing the bowel and the stomach from any remaining air. I looked into the lesser sac to see how the sleeve was situating and it was situating well. There was no bleeding from the staple line, spleen, or short gastric vessels. The Mediflex retractor was removed, and the undersurface of the liver was inspected and there was no bleeding. The patient was placed in supine position. I closed the fascial defect of the 12 mm port site with a figure of eight #1 Polysorb suture. Then 100 cc 0.25 % Marcaine plain with 10 mg of Dexamethasone were used to infiltrate the fascial closure as well as all skin incisions. At this point, the abdomen was deflated, all ports were removed under direct vision, and no bleeding was noted from any of the port sites. The skin incisions were irrigated with saline and were closed with 4-0 absorbable monofilament sutures. Steri-Strips and OpSites were used to cover all incisions. The patient was extubated and was transferred in stable condition to the recovery room for further care. I was present and performed all alexander parts of the procedure. Ms. Bautista was the commercial lines account assistant. There were no residents to assist with this case. Josh Adams MD, PhD, FACS Surgeon: Zelalem Adams MD Anesthesia: GETA, local and other (TAP block) Was an Diamond Sawer used for this Procedure?: Yes Diamond Sawer: Alessandra Bautista Estimated blood loss (mL): 10 IV fluids (mL): 3,500 Urine output (mL): 0 (No Dumont to gravity) Pathology: other (Stomach) Condition: stable Disposition: PACU
--- NOTE | 2021-07-04 12:48 | P.PNGS_ITS ---
Subjective Subjective Date of Service: 07/05/21 Interval history: Patient has mild incisional pain, but was able to ambulate and use the incentive spirometer. He is tolerating phase 1 bariatric diet Physical Exam Vital Signs: Vital Signs: Last Vital Signs Temp 97.8 F 07/04/21 12:17 Pulse 87 07/04/21 12:32 Resp 18 07/04/21 12:32 BP 191/98 H 07/04/21 12:32 Pulse Ox 98 07/04/21 12:32 BMI result Body Mass Index 35.3 GI: Inspection: Yes normal to inspection, Yes incision (dry, clean, and intact) and Yes obesity Extrem: Right lower extremity: normal to inspection (no calf tenderness) Left lower extremity: normal to inspection (no calf tenderness) Objective Data Active Medications Famotidine (Famotidine/Pf 20 Mg/2 Ml Vial) 20 mg IVPUSH BID [facility] Last Admin: 07/04/21 12:35 Dose: 20 mg Documented by: LIZET Fentanyl (Fentanyl Citrate/Pf 100 Mcg/2 Ml Vial) 50 mcg IVPUSH Q5M PRN; Protocol PRN Reason: Pain, Moderate (Pain Scale 4-6 Hydromorphone HCl (Hydromorphone Hcl 0.5 Mg/0.5 Ml Syringe) 0.5 mg IVPUSH Q5M PRN; Protocol PRN Reason: Pain, Severe (Pain Scale 7-10) Lactated Ringer's (Lr) 1,000 mls @ 100 mls/hr IVCONT .Q10H [facility] Last Admin: 07/04/21 07:01 Dose: 100 mls/hr Documented by: MAC Promethazine HCl 6.25 mg/ (Sodium Chloride) 50.25 mls @ 201 mls/hr IV ONCE PRN PRN Reason: Nausea and Vomiting Lactated Ringer's (Lr) 1,000 mls @ 100 mls/hr IVCONT .Q10H [facility] Metoclopramide HCl (Metoclopramide Hcl 10 Mg/2 Ml Vial) 10 mg IVPUSH Q6H PRN PRN Reason: Nausea Ondansetron HCl (Ondansetron Hcl 4 Mg/2 Ml Vial) 4 mg IVPUSH ONCE PRN PRN Reason: Nausea and Vomiting Oxycodone HCl (Oxycodone Hcl Immed Release 5 Mg Tablet) 10 mg PO ONCE PRN PRN Reason: Pain, Mild (Pain Scale 1-3) Labs CBC & Chem 7: 07/05/21 05:37 07/05/21 05:37 Labs: Laboratory Results - last 24 hr 07/04/21 06:28 POC Glucose 118 H Procedures Date of Service Date of Service: 07/05/21 Progress Note: A&P Assessment and plan (1) S/P laparoscopic sleeve gastrectomy: Status: Acute Assessment and Plan: s/p laparoscopic sleeve gastrectomy, lysis of adhesions repair of diaphragmatic hernia, and gastropexy Doing well Check am labs. If OK, will discharge home? 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: Status: Acute (13) Diastolic dysfunction: Status: Acute Fall Risk Details Current Medications: Current Medications Famotidine (Famotidine/Pf 20 Mg/2 Ml Vial) 20 mg IVPUSH BID [facility] Last Admin: 07/04/21 12:35 Dose: 20 mg Documented by: Fentanyl (Fentanyl Citrate/Pf 100 Mcg/2 Ml Vial) 50 mcg IVPUSH Q5M PRN; Protocol PRN Reason: Pain, Moderate (Pain Scale 4-6 Hydromorphone HCl (Hydromorphone Hcl 0.5 Mg/0.5 Ml Syringe) 0.5 mg IVPUSH Q5M PRN; Protocol PRN Reason: Pain, Severe (Pain Scale 7-10) Lactated Ringer's (Lr) 1,000 mls @ 100 mls/hr IVCONT .Q10H [facility] Last Admin: 07/04/21 07:01 Dose: 100 mls/hr Documented by: Promethazine HCl 6.25 mg/ (Sodium Chloride) 50.25 mls @ 201 mls/hr IV ONCE PRN PRN Reason: Nausea and Vomiting Lactated Ringer's (Lr) 1,000 mls @ 100 mls/hr IVCONT .Q10H [facility] Metoclopramide HCl (Metoclopramide Hcl 10 Mg/2 Ml Vial) 10 mg IVPUSH Q6H PRN PRN Reason: Nausea Ondansetron HCl (Ondansetron Hcl 4 Mg/2 Ml Vial) 4 mg IVPUSH ONCE PRN PRN Reason: Nausea and Vomiting Oxycodone HCl (Oxycodone Hcl Immed Release 5 Mg Tablet) 10 mg PO ONCE PRN PRN Reason: Pain, Mild (Pain Scale 1-3) Time Spent With Patient Time: Total time spent is greater than 50% in coordination of care (as documented) at patient's floor/unit and/or counseling patient: Quality Stroke Does the patient have a stroke diagnosis?: No VTE Prior VTE?: No VTE Risk Level:: Surgical - moderate VTE Device Contraindication: N/A - Device Ordered VTE Drug Contraindication: Treatment Not Indicated
[2021-07-04 12:51] LABS: Hemoglobin 16.4 g/dl (14.0-18.0)
[2021-07-04] MEDS: Metoclopramide HCl 10 MG/2 ML VIAL IVPUSH (12:59)
[2021-07-04 13:05] LABS: Anion Gap 16 (12-20); Blood Urea Nitrogen 12 mg/dL (9-16); Calcium 9.5 mg/dL (8.4-10.2); Carbon Dioxide 24 mmol/L (22-29); Chloride 104 mmol/L (96-108); Creatinine Clr Calc Pharmacy 102.3; Estimated Glomerular Filt Rate > 60; Glucose Random 201 mg/dL (60-115); Potassium 4.6 mmol/L (3.3-5.1); Sodium 139 mmol/L (135-145)
[2021-07-04] MEDS: HYDROmorphone HCl 0.5 MG/0.5 ML SYRINGE IVPUSH (13:27)
[2021-07-04] MEDS: ondansetron HCL 4 MG/2 ML VIAL IVPUSH (16:42)
[2021-07-04] MEDS: HYDROmorphone HCl 0.5 MG/0.5 ML SYRINGE 0.25 MG IVPUSH (18:17)
[2021-07-04] MEDS: ceFAZolin Sodium/Dextrose,Iso 2 GM/50 ML PIGGYBACK IV (18:18)
[2021-07-04] MEDS: Topiramate 25 MG TABLET PO (20:47)
[2021-07-05] MEDS: 0.9 % Sodium Chloride Flush 3 ML SYRINGE IVFLUSH ×2 (00:06→07:50)
[2021-07-05] MEDS: ondansetron HCL 4 MG/2 ML VIAL IVPUSH ×2 (00:06→07:50)
[2021-07-05] MEDS: Lactated Ringers 1,000 ML 100 ML IVCONT (00:12)
[2021-07-05 03:43] VITALS: BP 130/66; PULSE 59; RESP 16; TEMP 37.2; O2SAT 94
[2021-07-05 06:06] LABS: Basophils Percent Auto 0.1 % (0-2); Hematocrit 43.6 % (42.0-52.0); Hemoglobin 14.8 g/dl (14.0-18.0); Imm Gran Abs Auto 0.06 X10*3/uL (0.00-0.03); Imm Gran Pct Auto 0.4 % (0.0-0.4); Lymphocytes Absolute Auto 1.1 X10*3/uL (1.2-4.9); Lymphocytes Percent Auto 7.5 % (20-40); MANUAL DIFF FLAG SCAN; Mean Corpuscular HGB Conc 33.9 g/dl (31.0-36.0); Mean Corpuscular Hemoglobin 30.5 pg (27.0-33.0); Mean Corpuscular Volume 89.9 fL (80.0-98.0); Mean Platelet Volume 11.3 fL (9.4-12.4); Monocytes Absolute Auto 1.7 X10*3/uL (0.1-1.2); Monocytes Percent Auto 11.6 % (2-11); Neutrophils Absolute Auto 11.5 x10*3/uL (2.0-8.3); Neutrophils Percent Auto 80.4 % (45-73); Platelet Count 147 X10*3/uL (160-400); Red Blood Count 4.85 X10*6/uL (4.60-5.80); Red Cell Distribution Width 12.3 % (11.0-16.0); SCAN SMEAR FLAG 1; White Blood Count 14.4 X10*3/uL (4.8-10.8)
[2021-07-05 06:23] LABS: Anion Gap 14 (12-20); Blood Urea Nitrogen 9 mg/dL (9-16); Calcium 9.3 mg/dL (8.4-10.2); Carbon Dioxide 22 mmol/L (22-29); Chloride 108 mmol/L (96-108); Creatinine Clr Calc Pharmacy 139.6; Estimated Glomerular Filt Rate > 60; Glucose Random 147 mg/dL (60-115); Potassium 4.2 mmol/L (3.3-5.1); Sodium 140 mmol/L (135-145)
[2021-07-05 06:30] LABS: SLIDE REVIEW VERIFIED
[2021-07-05 07:19] VITALS: O2SAT 97
[2021-07-05 07:34] VITALS: BP 156/72; PULSE 70; RESP 18; TEMP 36.7; O2SAT 96
[2021-07-05] MEDS: Famotidine/PF 20 MG/2 ML VIAL IVPUSH (07:50)
--- NOTE | 2021-07-05 09:05 | MHC.CM.PN ---
PATIENT LIVES WITH /HCP AND IS FULLY INDEPENDENT HCP IS ON FILE AND VERIFIED. HE HAS BEEN FULLY VACCINATED AND A BOOSTER AGAINST COVID-19 EXPANSE INFORMATION VERIFIED. NO DME OR VNA AND NO SERVICES ARE NEEDED. HE IS AWARE OF TODAY'S PLAN FOR DISCHARGE AND IMM 07/05 IN CHART TO PROVIDE TRANSPORT HOME
--- NOTE | 2021-07-05 10:14 | HO.POSTANES ---
Post Anesthesia Evaluation Post Anesthesia Evaluation Vital Signs: Vital Signs Temp Pulse Resp BP Pulse Ox 07/05/21 07:34 98.1 F 70 18 156/72 H 96 07/05/21 07:19 97 07/05/21 03:43 98.9 F 59 16 130/66 94 07/04/21 23:30 98.7 F 75 18 146/70 H 92 Anesthesia: General Endotracheal-GETA Mental Status: Awake Pain Control: Satisfactory Nausea/Vomiting: None Hydration: Adequate Anesthesia-Related Issues: No Anes. Related Issues
== END 2021-07-05 10:06 | disposition home or self-care (01) | DRG 620 ==
LOC: HO.SSSA 12:22 → HO.S3 14:52
PROVIDERS: Physician Assistant; Physician Assistant Surgical; Admitting Provider Surgery; PCP Physician Assistant; Visit Provider Surgery
PROC: 0DB64Z3 Excision of Stomach, Percutaneous Endoscopic Approach, Vertical (ICD-10-PCS; CPT 43845; principal; 2021-07-04 07:30)
DX: E66.01 Morbid (severe) obesity due to excess calories (principal); K44.0 Diaphragmatic hernia with obstruction, without gangrene; M19.90 Unspecified osteoarthritis, unspecified site; E11.9 Type 2 diabetes mellitus without complications; E78.5 Hyperlipidemia, unspecified; G43.909 Migraine, unspecified, not intractable, without status migrainosus; K21.9 Gastro-esophageal reflux disease without esophagitis; K76.0 Fatty (change of) liver, not elsewhere classified; K66.0 Peritoneal adhesions (postprocedural) (postinfection); Z20.822 Contact with and (suspected) exposure to COVID-19; I51.89 Other ill-defined heart diseases; Z68.36 Body mass index [BMI] 36.0-36.9, adult; Z87.891 Personal history of nicotine dependence; Z79.899 Other long term (current) drug therapy
CPT/HCPCS: 36415; 80048; 80053; 80061; 82947; 83036; 83525; 84443; 85014; 85018; 85025; 85610; 85730; 86140; 86850; 86900; 86901; 87635; 88302; 88307; 88342; 99024; A4649; J0131; J0690; J1100; J1170; J2250; J2370; J2405; J2550; J2765; J3010

== ENCOUNTER → 2021-07-11 13:14 | Outpatient (BNVA) | payer MEDICARE, SELFPAY | PROVIDERS: PCP Physician Assistant; Referring Provider Physician Assistant; Visit Provider Surgery | DX: E66.09 Other obesity due to excess calories (principal); E78.2 Mixed hyperlipidemia; Z48.815 Encounter for surgical aftercare following surgery on the digestive system; Z68.37 Body mass index [BMI] 37.0-37.9, adult; Z79.899 Other long term (current) drug therapy; Z98.84 Bariatric surgery status; Z98.890 Other specified postprocedural states | CPT/HCPCS: 99212 ==

== ENCOUNTER 2021-07-24 05:57 | Outpatient (REF) | payer MEDICARE, SELFPAY ==
[2021-07-24 07:39] LABS: Hemoglobin 15.6 g/dl (14.0-18.0); Mean Corpuscular HGB Conc 32.5 g/dl (31.0-36.0); Mean Corpuscular Hemoglobin 29.4 pg (27.0-33.0); Mean Corpuscular Volume 90.4 fL (80.0-98.0); Mean Platelet Volume 11.8 fL (9.4-12.4); Platelet Count 198 X10*3/uL (160-400); Red Blood Count 5.31 X10*6/uL (4.60-5.80); Red Cell Distribution Width 12.4 % (11.0-16.0); White Blood Count 6.5 X10*3/uL (4.8-10.8)
[2021-07-24 08:09] LABS: Alanine Aminotransferase 50 U/L (0-40); Albumin Level 4.2 g/dL (3.5-5.0); Alkaline Phosphatase 66 U/L (39-117); Anion Gap 16 (12-20); Aspartate Amino Transferase 27 U/L (5-37); Bilirubin Total 1.4 mg/dL (0.0-1.0); Blood Urea Nitrogen 13 mg/dL (9-16); Calcium 9.9 mg/dL (8.4-10.2); Carbon Dioxide 27 mmol/L (22-29); Chloride 102 mmol/L (96-108); Cholesterol 171 mg/dL; Estimated Glomerular Filt Rate > 60; Glucose Fasting 126 mg/dL (60-99); HDL Cholesterol 36 mg/dL; LDL Cholesterol Calculated 112 mg/dl; Potassium 4.6 mmol/L (3.3-5.1); Sodium 140 mmol/L (135-145); Total Protein 6.7 g/dL (6.5-8.0); Triglycerides 116 mg/dL
[2021-07-24 08:14] LABS: Estimated Average Glucose 123 mg/dL; Hemoglobin A1c % 5.9 %
== END 2021-07-24 05:58 | disposition home or self-care (01) ==
LOC: HO.LAB 05:57
PROVIDERS: PCP Physician Assistant; Visit Provider Physician Assistant
DX: E11.9 Type 2 diabetes mellitus without complications (principal); E78.2 Mixed hyperlipidemia
CPT/HCPCS: 36415; 80053; 80061; 83036; 85027

== ENCOUNTER → 2021-08-18 13:00 | Outpatient (BNVA) | payer MEDICARE, SELFPAY | PROVIDERS: PCP Physician Assistant; Visit Provider Physician Assistant | DX: E66.09 Other obesity due to excess calories (principal); Z98.84 Bariatric surgery status; Z98.890 Other specified postprocedural states; Z87.19 Personal history of other diseases of the digestive system; Z68.30 Body mass index [BMI] 30.0-30.9, adult | CPT/HCPCS: 99212; Q3014 ==

== ENCOUNTER 2021-09-29 05:59 | Outpatient (REF) | payer MEDICARE, SELFPAY ==
[2021-09-29 07:26] LABS: Alanine Aminotransferase 33 U/L (0-40); Albumin Level 4.2 g/dL (3.5-5.0); Alkaline Phosphatase 67 U/L (39-117); Anion Gap 11 (12-20); Aspartate Amino Transferase 21 U/L (5-37); Bilirubin Total 0.8 mg/dL (0.0-1.0); Blood Urea Nitrogen 17 mg/dL (9-16); Calcium 9.6 mg/dL (8.4-10.2); Carbon Dioxide 29 mmol/L (22-29); Chloride 105 mmol/L (96-108); Cholesterol 178 mg/dL; Estimated Glomerular Filt Rate > 60; Glucose Fasting 102 mg/dL (60-99); HDL Cholesterol 42 mg/dL; LDL Cholesterol Calculated 117 mg/dl; Potassium 4.4 mmol/L (3.3-5.1); Sodium 141 mmol/L (135-145); Total Protein 6.4 g/dL (6.5-8.0); Triglycerides 98 mg/dL
[2021-09-29 07:52] LABS: Prostate Specific Antigen Scr 0.36 ng/mL (<0.05-4.0); TSH reflex Free T4 0.85 uIU/mL (0.32-4.0)
[2021-09-29 08:28] LABS: Creatinine Urine 95.27 mg/dL; Microalbum/Creatinine Ratio Ur 5.2 ug/mg cr
[2021-09-29 08:41] LABS: Estimated Average Glucose 103 mg/dL; Hemoglobin A1c % 5.2 %
== END 2021-09-29 06:00 | disposition home or self-care (01) ==
LOC: HO.LAB 05:59
PROVIDERS: PCP Physician Assistant; Visit Provider Physician Assistant
DX: Z12.5 Encounter for screening for malignant neoplasm of prostate (principal); E11.9 Type 2 diabetes mellitus without complications; E78.2 Mixed hyperlipidemia
CPT/HCPCS: 36415; 80053; 80061; 82043; 83036; 84153; 84443

== ENCOUNTER 2021-10-01 11:31 | Emergency (ER) | payer MEDICARE, SELFPAY ==
[2021-10-01 11:41] VITALS: BP 118/73; PULSE 69; RESP 16; TEMP 36.1; O2SAT 95; BMI 29.1
--- NOTE | 2021-10-01 12:13 | ED_ITS ---
HPI - Wound/Laceration General Chief Complaint: Wound/Laceration Stated Complaint: l index finger laceration at home Time Seen by Provider: 10/01/21 11:56 Source: patient Mode of arrival: ambulatory Limitations: no limitations History of Present Illness HPI narrative: This is a 66-year-old male presents to the emergency department with complaints left index finger laceration x 1 hour. Patient reports that he was at home working on drywall and accidentally lacerated his left index finger from a drywall knife. He reports that he is able to move his finger and has full sensation in his left index finger. His tetanus immunization is not up to date. He denies any fevers or chills. Denies any other complaints or concerns at this time. Onset (ago): hour(s) Location: other (left index finger) Place: home Patient tetanus UTD: No Context: accidental Associated symptoms: pain Treatments prior to arrival: bandage Related Data Previous Rx's Medication Instructions Recorded pantoprazole 40 mg tablet,delayed 40 mg PO DAILY #30 tabs 06/26/21 release simvastatin 20 mg tablet 20 mg PO DAILY 90 days #90 tabs 07/25/21 blood pressure test kit-large #1 ea 08/02/21 Allergies Allergy/AdvReac Type Severity Reaction Status Date / Time No Known Allergies Allergy Verified 10/01/21 11:47 [No Known Allergies*] Review of Systems Review of Systems: Constitutional: No Fever, No Chills ENT/Mouth: No sore throat, No Rhinorrhea, No Swallowing Difficulty Cardiovascular: No Chest Pain, No SOB Respiratory: No Cough, No Sputum, No Wheezing, No dyspnea Gastrointestinal: No Nausea, No Vomiting, No Diarrhea, No abdominal Pain Musculoskeletal: No joint pain, No Myalgias Skin: No Skin Lesions, No rash Neuro: No Weakness, No Numbness, No Dizziness, No Headache Heme/Lymph: No Bruising, No Lymphadenopathy PMFSH Past Medical History Medical History (Updated 10/01/21 @ 12:43 by BIJAL To) Abnormal EKG Arthritis BMI 33.0-33.9,adult BMI 36.0-36.9,adult Colon cancer screening COVID-19 vaccine series completed Diabetes Diastolic dysfunction DJD (degenerative joint disease) Elevated cholesterol GERD (gastroesophageal reflux disease) Lumbar disc disease Medicare annual wellness visit, initial Migraines Obesity (BMI 30.0-34.9) Preoperative cardiovascular examination Screening for diabetes mellitus (DM) Screening for hypercholesterolemia Screening PSA (prostate specific antigen) Steatosis, liver Tendinopathy of left shoulder Vitamin D deficiency Surgical History H/O colonoscopy Hernia History of repair of hiatal hernia Hx of arthroscopic knee surgery Hx of tooth extraction Rupture of right patellar tendon S/P laparoscopic sleeve gastrectomy Family History Family History Father Diabetes Heart problem Mother Breast cancer Diverticulitis Social History Social History Housing: House Are you a primary managed care nurse to a significant other at home: No Do you presently have visiting nurse or other home services: No Alcohol intake: current Alcohol intake frequency: does not drink Patient Tobacco Use Status: Former Tobacco user Quit Date: age 28 Tobacco use type: Cigarette Years Smoked: 10 e-Cigarette/Vaping Use: Never Used Advance Directives: No Advance Directives Information Provided: Yes service: No Current occupational status: retired Cognitive needs: No Hearing needs: No Vision needs: Yes Physical Exam Vital Signs: Vital Signs: Last Vital Signs Temp 96.9 F 10/01/21 11:41 Pulse 69 10/01/21 11:41 Resp 16 10/01/21 11:41 BP 118/73 10/01/21 11:41 Pulse Ox 95 10/01/21 11:41 O2 Del Method 10/01/21 11:41 BMI result Body Mass Index 29.1 Appearance: Alert. Oriented X3. No acute distress. Eyes: Pupils equal, round and reactive to light. ENT: Pharynx normal. Neck: Normal inspection. Neck supple. CVS: Normal heart rate and rhythm. Pulses normal. Respiratory: No respiratory distress. Breath sounds normal. Skin: Left 2nd digit at the palmar aspect of the middle phalanx, there is a 2 cm linear laceration with minimal active bleeding. No surrounding erythema, edema, streaking, or drainage. Normal skin color. No rashes. Extremities: Able to flex and extend at the distal middle and proximal phalanx in the left index finger. Distal sensation circulation intact. Able to make fist with left hand without any difficulty. Neuro: Oriented X 3. No motor deficit. No sensory deficit. Course Course Course Narrative: This is a 66-year-old male who presents with a left finger laceration. Wound closed with 3 nylon sutures, see procedure note. Educated suture removal in 7 days. Given wound care instructions. Updated tetanus immunization department today. Patient tolerated procedure well without any complications or concerns. Procedures Laceration Laceration 1: Site: hand Side (If applicable): left Size (cm): 2 Description: linear Depth: simple, single layer Local Anesthetic: lidocaine 1% Amount of anesthesia used (mL): 2 Pre-repair: wound explored, irrigated extensively and deep structures intact Skin layer closed with: vicryl Size (cm): 5-0 Number of sutures: 3 Technique: simple, interrupted Discharge Plan Discharge Clinical Impression: Laceration Patient Disposition: Home, Self-Care Instructions: Finger Laceration (ED) Additional Instructions: You will need your stitches out in 7 days. See you doctor for this or come back to the ER and we will remove them. Do not get wet for 24 hours, after that you can briefly wash with soap and water then pat dry. Use bacitracin 1x per day. Keep wound clean and covered. Do not submerge in water, no swimming. We gave you your tetanus immunization today. If you develop signs of infection including increased pain, swelling, redness or drainage of pus come back to the ER for further evaluation. Prescriptions: No Action simvastatin 20 mg tablet 20 mg PO DAILY 90 Days Qty: 90 1RF (DME) blood pressure test kit-large Kit See Rx Instructions .Route Qty: 1 0RF Rx Instructions: As directed pantoprazole 40 mg tablet,delayed release (DR/EC) 40 mg PO DAILY Qty: 30 2RF Interventions: ED Discharge Assessment Last Done: 10/01/21 12:54 Discharge Date/Time: 10/01/21 12:55
[2021-10-01] MEDS: Diphth,Pertus(ACell),Tet Adult 0.5 ML SYRINGE IM (12:38)
[2021-10-01] MEDS: Lidocaine HCl 2 % MPF 5 ML VIAL SUBCUT (12:39)
== END 2021-10-01 12:55 | disposition home or self-care (01) ==
PROVIDERS: Emergency Provider Emergency Medicine; PCP Physician Assistant
DX: S61.211A Laceration without foreign body of left index finger without damage to nail, initial encounter (principal); W26.0XXA Contact with knife, initial encounter; Y93.H3 Activity, building and construction; Y92.019 Unspecified place in single-family (private) house as the place of occurrence of the external cause; Y99.9 Unspecified external cause status
CPT/HCPCS: 12001; 90471; 90715; 99283; 99284

== ENCOUNTER 2021-10-08 06:19 | Emergency (ER) | payer MEDICARE, SELFPAY ==
--- NOTE | 2021-10-08 06:51 | ED_ITS ---
HPI - General Adult General Stated complaint: suture removal Time Seen by Provider: 10/08/21 06:47 Source: patient Mode of arrival: ambulatory Limitations: no limitations History of Present Illness HPI narrative: Patient comes emergency room for suture removal. On October 01, patient had a laceration to the left index finger. Patient states it has been healing well, no erythema, no fever chills. Patient is able to move his finger back to normal. Related Data Previous Rx's Medication Instructions Recorded pantoprazole 40 mg tablet,delayed 40 mg PO DAILY #30 tabs 06/26/21 release simvastatin 20 mg tablet 20 mg PO DAILY 90 days #90 tabs 07/25/21 blood pressure test kit-large #1 ea 08/02/21 Allergies Allergy/AdvReac Type Severity Reaction Status Date / Time No Known Allergies Allergy Verified 10/01/21 11:47 [No Known Allergies*] Review of Systems Review of Systems: Constitutional : No Weight loss, No Fever, No Chills, No Night Sweats, No Fatigue, No Malaise ENT/Mouth : No Hearing loss, No Ear Pain, No Nasal Congestion, No Sinus Pain, No Hoarseness, No sore throat, No Rhinorrhea, No Swallowing Difficulty Eyes: No Eye Pain, No Swelling, No Redness, No Foreign Body, No Discharge, No Vision Changes Cardiovascular : No Chest Pain, No SOB, No Dyspnea on Exertion, No Orthopnea, No Edema, No Palpitations Respiratory : No Cough, No Sputum, No Wheezing, No Smoke Exposure, No Dyspnea Gastrointestinal : No Nausea, No Vomiting, No Diarrhea, No Constipation, No abdominal Pain, No Hematochezia, No Melena Genitourinary : no irregular bleeding, No Dysuria, No Urinary Frequency, No Hematuria, No Urinary Incontinence, No Urgency, No Flank Pain, No Urinary Flow Changes, No Hesitancy Musculoskeletal : No joint pain, No Myalgias, No Joint Swelling Skin : Laceration left index healing well Neuro : No Weakness, No Numbness, No Paresthesias, No Loss of Consciousness, No Dizziness, No Headache Psych : No Anxiety/Panic, No Depression, No SI/HI/AH/VH, No Social Issues, Heme/Lymph: No Bruising, No Bleeding,No Lymphadenopathy Endocrine : No Polyuria, No Polydipsia, No Temperature Intolerance [facility] Past Medical History Medical History Abnormal EKG Arthritis BMI 33.0-33.9,adult BMI 36.0-36.9,adult Colon cancer screening COVID-19 vaccine series completed Diabetes Diastolic dysfunction DJD (degenerative joint disease) Elevated cholesterol GERD (gastroesophageal reflux disease) Lumbar disc disease Medicare annual wellness visit, initial Migraines Obesity (BMI 30.0-34.9) Preoperative cardiovascular examination Screening for diabetes mellitus (DM) Screening for hypercholesterolemia Screening PSA (prostate specific antigen) Steatosis, liver Tendinopathy of left shoulder Vitamin D deficiency Surgical History H/O colonoscopy Hernia History of repair of hiatal hernia Hx of arthroscopic knee surgery Hx of tooth extraction Rupture of right patellar tendon S/P laparoscopic sleeve gastrectomy Family History Family History Father Diabetes Heart problem Mother Breast cancer Diverticulitis Social History Social History Housing: House Are you a primary hospice home care coordinator to a significant other at home: No Do you presently have visiting nurse or other home services: No Alcohol intake: current Alcohol intake frequency: does not drink Patient Tobacco Use Status: Former Tobacco user Quit Date: age 28 Tobacco use type: Cigarette Years Smoked: 10 e-Cigarette/Vaping Use: Never Used Advance Directives: Yes Advance Directives on File: Yes Advance Directives Date on File: 07/04/21 service: No Current occupational status: retired Cognitive needs: No Hearing needs: No Vision needs: Yes Physical Exam ED Const Other: Appearance: Alert. Oriented X3. No acute distress. Eyes: Pupils equal, round and reactive to light. ENT: Pharynx normal. Neck: Normal inspection. Neck supple. No lymph nodes noted. No crepitus CVS: Normal heart rate and rhythm. Pulses normal. Normal S1 and S2 Respiratory: No respiratory distress. Breath sounds normal. No Wheezing. No rales Abdomen: Soft and nontender. No rigidity. No distention. Skin: Skin warm and dry. Left index finger healing well, no erythema, no pus drainage Extremities: No lower extremity edema. No Lacerations. No Rash Neuro: Oriented X 3. No motor deficit. No sensory deficit. Moving all extremities. No slurred speech. CN 2 through 12 grossly intact Psych: calm, cooperative, normal affect Course Course Course Narrative: Three sutures were removed, healing well. Discharge Plan Discharge Clinical Impression: Encounter for removal of sutures Patient Disposition: Home, Self-Care Additional Instructions: Please follow-up with your primary care physician tomorrow. If you have any worsening or new symptoms, please return to the emergency room or call 911 Prescriptions: No Action simvastatin 20 mg tablet 20 mg PO DAILY 90 Days Qty: 90 1RF (DME) blood pressure test kit-large Kit See Rx Instructions .Route Qty: 1 0RF Rx Instructions: As directed pantoprazole 40 mg tablet,delayed release (DR/EC) 40 mg PO DAILY Qty: 30 2RF
[2021-10-08 07:00] VITALS: BP 156/71; PULSE 61; RESP 14; TEMP 35.8; O2SAT 98; BMI 28.9
== END 2021-10-08 07:04 | disposition home or self-care (01) ==
PROVIDERS: Emergency Provider Emergency Medicine; PCP Physician Assistant
DX: Z48.02 Encounter for removal of sutures (principal)
CPT/HCPCS: 99283

== ENCOUNTER → 2021-10-20 14:49 | Outpatient (BNVA) | payer MEDICARE, SELFPAY | PROVIDERS: PCP Physician Assistant; Visit Provider Physician Assistant Surgical | DX: E66.3 Overweight (principal); Z68.28 Body mass index [BMI] 28.0-28.9, adult; Z98.84 Bariatric surgery status | CPT/HCPCS: Q3014 ==

== ENCOUNTER → 2021-11-29 09:41 | Outpatient (BNVA) | payer MEDICARE, SELFPAY | PROVIDERS: PCP Physician Assistant; Visit Provider Physician Assistant Surgical | DX: E66.3 Overweight (principal); Z87.19 Personal history of other diseases of the digestive system; Z98.84 Bariatric surgery status; Z98.890 Other specified postprocedural states | CPT/HCPCS: Q3014 ==

== ENCOUNTER 2022-01-02 06:01 | Outpatient (REF) | payer MEDICARE, SELFPAY ==
[2022-01-02 06:28] LABS: MANUAL DIFF FLAG NO
[2022-01-02 07:26] LABS: Basophils Percent Auto 0.7 % (0-2); Eosinophils Absolute Auto 0.1 X10*3/uL (0.0-0.4); Hematocrit 48.6 % (42.0-52.0); Hemoglobin 16.1 g/dl (14.0-18.0); Imm Gran Abs Auto 0.01 X10*3/uL (0.00-0.03); Imm Gran Pct Auto 0.2 % (0.0-0.4); Lymphocytes Absolute Auto 1.8 X10*3/uL (1.2-4.9); Lymphocytes Percent Auto 30.2 % (20-40); Mean Corpuscular HGB Conc 33.1 g/dl (31.0-36.0); Mean Corpuscular Hemoglobin 29.7 pg (27.0-33.0); Mean Corpuscular Volume 89.7 fL (80.0-98.0); Monocytes Absolute Auto 0.6 X10*3/uL (0.1-1.2); Neutrophils Absolute Auto 3.5 x10*3/uL (2.0-8.3); Neutrophils Percent Auto 57.9 % (45-73); Platelet Count 180 X10*3/uL (160-400); Red Blood Count 5.42 X10*6/uL (4.60-5.80); Red Cell Distribution Width 13.3 % (11.0-16.0); White Blood Count 6.1 X10*3/uL (4.8-10.8)
[2022-01-02 07:45] LABS: Estimated Average Glucose 100 mg/dL; Hemoglobin A1c % 5.1 %
[2022-01-02 08:08] LABS: Alanine Aminotransferase 26 U/L (0-40); Albumin Level 4.5 g/dL (3.5-5.0); Alkaline Phosphatase 66 U/L (39-117); Anion Gap 16 (12-20); Aspartate Amino Transferase 21 U/L (5-37); Bilirubin Total 0.8 mg/dL (0.0-1.0); Blood Urea Nitrogen 16 mg/dL (9-16); C Reactive Protein 0.07 mg/dL (< or = 0.50); Calcium 9.9 mg/dL (8.4-10.2); Carbon Dioxide 28 mmol/L (22-29); Chloride 103 mmol/L (96-108); Cholesterol 175 mg/dL; Estimated Glomerular Filt Rate > 60; Glucose Fasting 85 mg/dL (60-99); HDL Cholesterol 50 mg/dL; Iron 120 mcg/dL (45-160); LDL Cholesterol Calculated 105 mg/dl; Percent Iron Saturation 37 % (15-50); Potassium 4.4 mmol/L (3.3-5.1); Sodium 143 mmol/L (135-145); Total Iron Binding Capacity 325 mcg/dL (228-428); Total Protein 6.7 g/dL (6.5-8.0); Triglycerides 100 mg/dL; Unsaturated Iron Binding 205 ug/dL
[2022-01-02 08:18] LABS: Creatinine Urine 121.79 mg/dL; Microalbumin Urine < 5.0 mg/L
[2022-01-02 08:27] LABS: Ferritin 185 ng/mL (20-250); Insulin 8 uU/mL (2-29); TSH reflex Free T4 0.93 uIU/mL (0.32-4.0); Vitamin D 25-OH Total 56.4 ng/mL (>30)
[2022-01-02 09:35] LABS: Folate > 20.0 ng/mL (> or = 4.0); Vitamin B12 861 pg/mL (200-900)
[2022-01-03 11:32] LABS: PTHI 41 pg/mL (16-77)
[2022-01-05 11:27] LABS: Vitamin B1 22 nmol/L (8-30)
[2022-01-06 00:33] LABS: Zinc 60 mcg/dL (60-130)
[2022-01-06 16:06] LABS: Vitamin A 52 mcg/dL (38-98)
== END 2022-01-02 06:02 | disposition home or self-care (01) ==
LOC: HO.LAB 06:01
PROVIDERS: PCP Physician Assistant; Visit Provider Physician Assistant Surgical
DX: E78.2 Mixed hyperlipidemia (principal); I10 Essential (primary) hypertension; E11.9 Type 2 diabetes mellitus without complications; Z98.84 Bariatric surgery status
CPT/HCPCS: 36415; 80053; 80061; 82043; 82306; 82607; 82728; 82746; 83036; 83525; 83540; 83970; 84425; 84443; 84590; 84630; 85025; 86140

== ENCOUNTER → 2022-01-10 09:00 | Outpatient (BNVA) | payer MEDICARE, SELFPAY | PROVIDERS: PCP Physician Assistant; Visit Provider Physician Assistant Surgical | DX: E66.3 Overweight (principal); Z98.84 Bariatric surgery status; Z68.27 Body mass index [BMI] 27.0-27.9, adult; Z98.890 Other specified postprocedural states; Z87.19 Personal history of other diseases of the digestive system | CPT/HCPCS: 99212 ==

== ENCOUNTER 2022-02-20 06:41 | Day surgery (SDC) | payer MEDICARE, SELFPAY ==
[2022-02-09 11:44] VITALS: BMI 27.2
--- NOTE | 2022-02-19 10:36 | HO.ANESPROP2 ---
Documented by User: Nicolle Schneider NP 02/19/22 10:38 HPI - Anesthesia Eval Consult details Narrative: 67yo M for Colonoscopy s/p gastric sleeve 06/2021 with GA-ETT 7.5 PMFSH Active Problems Active Problems: All Active Problems (Updated 11/02/21 @ 10:23 by Jorge Parikh PA-C) Erectile dysfunction (Acute) Overweight (BMI 25.0-29.9) (Acute) HTN (hypertension) (Acute) Elevated blood pressure reading (Acute) History of repair of hiatal hernia (Acute) S/P laparoscopic sleeve gastrectomy (Acute) Diastolic dysfunction (Acute) Congenital intra-abdominal adhesions (Acute) Steatosis, liver (Acute) Hiatal hernia (Acute) Obese (Acute) DMII (diabetes mellitus, type 2) (Acute) HLD (hyperlipidemia) (Acute) BMI 35.0-35.9,adult (Acute) Abnormal myocardial perfusion study (Acute) Migraines (Acute) DJD (degenerative joint disease) (Acute) Past Medical History Medical History (Updated 02/20/22 @ 07:41 by Sabrina Castaneda RN) Abnormal EKG Arthritis BMI 33.0-33.9,adult Colon cancer screening COVID-19 vaccine series completed Diabetes Diastolic dysfunction DJD (degenerative joint disease) Elevated cholesterol Lumbar disc disease Migraines Obesity (BMI 30.0-34.9) Preoperative cardiovascular examination Steatosis, liver Tendinopathy of left shoulder Vitamin D deficiency Family History Family History Father Diabetes Heart problem Mother Breast cancer Diverticulitis Family history of problems with anesthesia: No Surgical History Surgical History H/O colonoscopy Hernia History of repair of hiatal hernia Hx of arthroscopic knee surgery Hx of tooth extraction Rupture of right patellar tendon S/P laparoscopic sleeve gastrectomy History of Problems with Anesthesia: No Social History Social History Housing: House Are you a primary family member caretaker to a significant other at home: No Do you presently have visiting nurse or other home services: No Alcohol intake: current Alcohol intake frequency: does not drink Patient Tobacco Use Status: Former Tobacco user Quit Date: 40 yr ago Tobacco use type: Cigarette Years Smoked: 10 e-Cigarette/Vaping Use: Never Used Use of substances other than those prescribed or required for medical reasons: No Are you DNR?: No Advance Directives: No Advance Directives Information Provided: Yes Advance Directives Date on File: 07/04/21 service: No Current occupational status: retired Cognitive needs: No Hearing needs: No Vision needs: Yes Meds Allergies Allergy/AdvReac Type Severity Reaction Status Date / Time No Known Allergies Allergy Verified 02/20/22 07:35 [No Known Allergies*] Home Medications Medication Instructions Recorded Confirmed Last Taken Type cholecalciferol (vitamin D3) 125 125 mcg PO DAILY 11/02/21 02/09/22 Unknown History mcg (5,000 unit) tablet (Vitamin D3) multivitamin 1 tab PO DAILY 11/29/21 11/29/21 Unknown History Exam Exam Date and Time: February 19, 2022 1036 Height,Weight and Vital Signs: Height 6 ft 5 in Weight 104.326 kg Pertinent Lab Results Pertinent Lab Results: Laboratory Tests 01/02/22 01/02/22 06:26 06:26 WBC 6.1 Hgb 16.1 Hct 48.6 Plt Count 180 Sodium 143 Potassium 4.4 Chloride 103 Carbon Dioxide 28 BUN 16 Creatinine 0.87 Narrative Narrative: EKG 04/2021 Vent. Rate : 073 BPM ? ? Atrial Rate : 073 BPM ?? P-R Int : 174 ms? QRS Dur : 084 ms ? ? QT Int : 382 ms ? ? ? P-R-T Axes : 066 025 030 degrees ?? QTc Int : 420 ms ? Sinus rhythm with Premature atrial complexes Low voltage QRS Borderline ECG No previous ECGs available ECHO 06/2021 Conclusions: - 1.? Normal LV systolic function with grade 1 diastolic ? dysfunction? 2.? Normal cardiac valvular Doppler? 3. Mildly dilated ascending aorta? 4.? Normal RV systolic pressure? 5.? No pericardial effusion? ? ? NM ranjit perf SPECT rest & str 05/2021 Impression: ? 1.? Myocardial perfusion imaging study shows inferolateral defect with reversible/fixed components. Cannot differentiate if it is from body habitus or ischemia. 2.? Gated LVEF is 61% during stress and 52% during rest. 3. Transient ischemic dilatation not present. ? EKG component of the test reported separately. (Nondiagnostic) Assessment and Plan Assessment Anesthesia Assessment: Chart Reviewed Final Anesthetic Review Family History of Problems with Anesthesia: No History of Problems with Anesthesia: No Documented by User: Ramy Burton MD 02/20/22 08:38 [facility] Past Medical History Medical History (Updated 02/20/22 @ 07:41 by Sabrina Castaneda RN) Abnormal EKG Arthritis BMI 33.0-33.9,adult Colon cancer screening COVID-19 vaccine series completed Diabetes Diastolic dysfunction DJD (degenerative joint disease) Elevated cholesterol Lumbar disc disease Migraines Obesity (BMI 30.0-34.9) Preoperative cardiovascular examination Steatosis, liver Tendinopathy of left shoulder Vitamin D deficiency Family History Family History Father Diabetes Heart problem Mother Breast cancer Diverticulitis Surgical History Surgical History H/O colonoscopy Hernia History of repair of hiatal hernia Hx of arthroscopic knee surgery Hx of tooth extraction Rupture of right patellar tendon S/P laparoscopic sleeve gastrectomy Social History Social History Housing: House Are you a primary family member caretaker to a significant other at home: No Do you presently have visiting nurse or other home services: No Alcohol intake: current Alcohol intake frequency: does not drink Patient Tobacco Use Status: Former Tobacco user Quit Date: 40 yr ago Tobacco use type: Cigarette Years Smoked: 10 e-Cigarette/Vaping Use: Never Used Use of substances other than those prescribed or required for medical reasons: No Are you DNR?: No Advance Directives: No Advance Directives Information Provided: Yes Advance Directives Date on File: 07/04/21 service: No Current occupational status: retired Cognitive needs: No Hearing needs: No Vision needs: Yes Meds Allergies Allergy/AdvReac Type Severity Reaction Status Date / Time No Known Allergies Allergy Verified 02/20/22 07:35 [No Known Allergies*] Home Medications Medication Instructions Recorded Confirmed Last Taken Type cholecalciferol (vitamin D3) 125 125 mcg PO DAILY 11/02/21 02/09/22 Unknown History mcg (5,000 unit) tablet (Vitamin D3) multivitamin 1 tab PO DAILY 11/29/21 11/29/21 Unknown History Exam Airway Mallampati Class: III TM Dist: >3cm Neck ROM: Full Denture: Upper and Lower Heart: rrr Lungs: clear Assessment and Plan Final Anesthetic Review NPO: Yes ASA Class: III Final Preanesthetic Review: No Changes in Pt Med Stat, Meds/Allgs Chart Reviewed, Consent Obtained/Reviewed and Anes Risks/Benef Reviewed Patient Risk: Intermediate Procedure Risk: Low Anesthetic Plan Anesthetic Plan: MAC: Disposition: Standard PACU
[2022-02-20 07:55] VITALS: BP 142/76; PULSE 52; RESP 15; TEMP 36.6; O2SAT 99
[2022-02-20] MEDS: Lactated Ringers 1,000 ML 100 ML IVCONT (08:08)
--- NOTE | 2022-02-20 08:18 | MHC.SHP ---
Pre-Procedural Eval Section A Date of Service: 02/20/22 Section B Chief Complaint: screening Relevant Family History (Specify if Yes): No Relevant Social History: None Present Medications: see Short Stay Collaborative assessment Medical History: Significant History (Abnormal EKG Arthritis BMI 33.0-33.9,adult BMI 36.0-36.9,adult Colon cancer screening COVID-19 vaccine series completed Diabetes Diastolic dysfunction DJD (degenerative joint disease) Elevated cholesterol GERD (gastroesophageal reflux disease) Lumbar disc disease Medicare annual wellness visit, init) History of Previous Operations: Relevant previous surgery/procedure and date(s) (H/O colonoscopy Hernia History of repair of hiatal hernia Hx of arthroscopic knee surgery Hx of tooth extraction Rupture of right patellar tendon S/P laparoscopic sleeve gastrectomy) Allergies: Allergies Allergy/AdvReac Type Severity Reaction Status Date / Time No Known Allergies Allergy Verified 02/20/22 07:35 [No Known Allergies*] Review of Systems Sugical H&P ROS: Negative: Constitution, Cardiovascular, Respiratory, Neurological, Psychiatric, Hem-Onc, Allergic/Immunologic, Gastrointestinal, Genitourinary, Musculoskeletal, Integumentary, Endocrine and Eyes/Ears/Nose/Throat Exam Surgical H&P Exam: Normal: HEENT, Normal: Heart, Normal: Lungs, Normal: Extremities, Normal: Abdomen, Normal: Skin and Normal: Neurological Plan Diagnosis/Plan: Unchanged I have reviewed the history and physical and performed a pertinent physical examination on my patient. No changes have occurred unless specified.
--- NOTE | 2022-02-20 08:19 | W.PM.OPN ---
Operative Note Operative Note Date of Service: 02/20/22 Narrative: Operative Information Procedure Description: Colonoscopy Indication: screening Anesthesia: MAC COLONOSCOPY Instrument: Olympus variable stiffness pediatric scope 190L Colonoscopy Monitoring: Vital signs and clinical assessment, continuous EKG monitoring, Pulse oximetry, Carbon Dioxide monitoring and blood pressure monitoring were done throughout the procedure. Colon withdrawal time was 12 minutes. Procedure: The patient was placed in the left lateral decubitis position and pre-procedure medications were administered. After a digital rectal examination of the ano-rectum, the video colonoscope was inserted into the rectum and advanced through the colon to the cecum/TI. The colonoscope was slowly withdrawn in a retrograde panoramic fashion and the colon mucosa was carefully examined including a retroflexed view of the rectum. Findings and interventions are described below. Procedure Difficulty: moderate due to looping Findings: Terminal Ileum-not intubated due to looping Cecum:normal Ascending Colon: 10 mm sessile polyp removed with cold snare Transverse Colon -normal Descending Colon:normal Sigmoid Colon: moderate diverticulosis, Rectum: Retroflexion with small internal hemorrhoids, grade I Anorectum - normal Colon preparation: [place] Bowel Preparation Scale Right colon; 2 Transverse colon: 2 Left colon; 1-2 (0 = Unprepared colon segment with mucosa not seen due to solid stool that cannot be cleared. 1 = Portion of mucosa of the colon segment seen, but other areas of the colon segment not well seen due to staining, residual stool and/or opaque liquid. 2 = Minor amount of residual staining, small fragments of stool and/or opaque liquid, but mucosa of colon segment seen well. 3 = Entire mucosa of colon segment seen well with no residual staining, small fragments of stool or opaque liquid) Impression and Post Procedure Diagnosis: polyp internal hemorrhoids diverticular disease Plan: High fiber diet leaflet Avoid straining at stool, epsom salts and sitz bath, anusol supps or cream Repeat Colonoscopy in 5 years due to polyp and left sided fair prep or earlier if clinically indicated Above findings were reviewed with the patient and relevant handouts were provided if indicated.
[2022-02-20 09:18] VITALS: BP 137/70; PULSE 63; RESP 16; TEMP 36.1; O2SAT 98
[2022-02-20 09:33] VITALS: BP 144/74; PULSE 52; RESP 16; TEMP 36.4; O2SAT 99
== END 2022-02-20 09:53 | disposition home or self-care (01) ==
PROVIDERS: PCP Physician Assistant; Visit Provider Internal Medicine Gastroenterology
PROC: 0DJD8ZZ Inspection of Lower Intestinal Tract, Via Natural or Artificial Opening Endoscopic (ICD-10-PCS; CPT 45378; principal; 2022-02-20 08:10)
DX: Z12.11 Encounter for screening for malignant neoplasm of colon (principal); D12.2 Benign neoplasm of ascending colon; K57.30 Diverticulosis of large intestine without perforation or abscess without bleeding; K64.0 First degree hemorrhoids; K56.2 Volvulus; E11.9 Type 2 diabetes mellitus without complications; I10 Essential (primary) hypertension; Z79.84 Long term (current) use of oral hypoglycemic drugs; Z98.84 Bariatric surgery status
CPT/HCPCS: 45385; 88305

== ENCOUNTER → 2022-04-04 09:25 | Outpatient (BNVA) | payer MEDICARE, SELFPAY | PROVIDERS: PCP Physician Assistant; Visit Provider Physician Assistant Surgical | DX: E66.3 Overweight (principal); L98.7 Excessive and redundant skin and subcutaneous tissue; Z98.84 Bariatric surgery status; Z68.27 Body mass index [BMI] 27.0-27.9, adult | CPT/HCPCS: 99212 ==

== ENCOUNTER 2022-04-06 11:17 | Outpatient (REF) | payer MEDICARE, SELFPAY ==
--- NOTE | ~2022-04-06 | US_ITS ---
EXAMINATION: US ABDOMEN LIMITED CLINICAL INFORMATION: Unspecified abdominal pain. Right upper quadrant pain. Question history of gallstones. COMPARISON: None TECHNIQUE: Real-time imaging of the right upper quadrant abdominal viscera. FINDINGS: PANCREAS: Normal. LIVER: The liver is normal in size. The liver contour is normal. There is increased liver echogenicity. No focal hepatic lesion. There is no intrahepatic biliary duct dilatation seen. GALLBLADDER: The gallbladder is physiologically distended. Multiple mobile gallstones are present. No evidence of gallbladder wall thickening or pericholecystic fluid. Gallbladder wall thickness is 0.29 cm. There is no tenderness in the right upper quadrant. COMMON BILE DUCT: Normal in caliber measuring 0.23 cm in diameter. RIGHT KIDNEY: There is anechoic cyst in the lower pole measuring 1.1 x 0.64 x 0.5 cm. There is an echogenic stone lower pole measuring 0.27 x 0.31 x 0.27 cm. No hydronephrosis or focal parenchymal lesions. The kidney measures 11.7 cm in maximum dimension. FREE FLUID: None. US/US abdomen limited IMPRESSION: Cholelithiasis without wall thickening or tenderness in right upper quadrant. Mild hepatic steatosis without focal lesion. Nonobstructive echogenic stone and cyst in lower pole right kidney.
== END 2022-04-06 11:18 | disposition home or self-care (01) ==
LOC: HO.HMGCX 11:17
PROVIDERS: PCP Physician Assistant; Visit Provider Physician Assistant Surgical
DX: R10.11 Right upper quadrant pain (principal)
CPT/HCPCS: 76705

== ENCOUNTER 2022-05-30 09:08 | Outpatient (REF) | payer MEDICARE, SELFPAY ==
[2022-05-30 12:55] LABS: Influenza A PCR NEGATIVE (Negative); Influenza B PCR NEGATIVE (Negative); Resp Syncy Virus RNA Qual PCR NEGATIVE (Negative); SARS COV2 PCR INHOUSE NEGATIVE (Negative)
== END 2022-05-30 09:09 | disposition home or self-care (01) ==
LOC: HO.LAB 09:08
PROVIDERS: Visit Provider Nurse Practitioner Family
DX: Z20.822 Contact with and (suspected) exposure to COVID-19 (principal); R09.89 Other specified symptoms and signs involving the circulatory and respiratory systems; R53.83 Other fatigue
CPT/HCPCS: 0241U

== ENCOUNTER → 2022-07-03 05:58 | Outpatient (REF) | payer MEDICARE, SELFPAY ==
--- NOTE | 2022-07-03 06:13 | ECG_ITS ---
Test Reason : pre op Blood Pressure : / mmHG Vent. Rate : 060 BPM Atrial Rate : 060 BPM P-R Int : 150 ms QRS Dur : 086 ms QT Int : 404 ms P-R-T Axes : -12 013 020 degrees QTc Int : 404 ms Sinus rhythm with Premature atrial complexes Low voltage QRS Borderline ECG When compared with ECG of 16-MAY-2021 06:37, No significant change was found Referred By: Jorge Parikh Electronically Signed By:CHRISTIAN JUAREZ MD
[2022-07-03 07:35] LABS: Prothrombin Time 11.3 SEC (10.0-13.1)
[2022-07-03 07:38] LABS: Hematocrit 49.4 % (42.0-52.0); Hemoglobin 16.4 g/dl (14.0-18.0); Mean Corpuscular HGB Conc 33.2 g/dl (31.0-36.0); Mean Corpuscular Hemoglobin 29.9 pg (27.0-33.0); Mean Corpuscular Volume 90.1 fL (80.0-98.0); Mean Platelet Volume 11.1 fL (9.4-12.4); Platelet Count 171 X10*3/uL (160-400); Red Blood Count 5.48 X10*6/uL (4.60-5.80); Red Cell Distribution Width 12.8 % (11.0-16.0); White Blood Count 6.4 X10*3/uL (4.8-10.8)
[2022-07-03 08:10] LABS: Anion Gap 13 (12-20); Blood Urea Nitrogen 15 mg/dL (9-16); Carbon Dioxide 31 mmol/L (22-29); Chloride 104 mmol/L (96-108); Cholesterol 192 mg/dL; Estimated Glomerular Filt Rate > 60; Glucose Random 87 mg/dL (60-115); HDL Cholesterol 59 mg/dL; LDL Cholesterol Calculated 116 mg/dl; Potassium 4.8 mmol/L (3.3-5.1); Sodium 143 mmol/L (135-145); Triglycerides 89 mg/dL
== END ==
LOC: HO.CARD 05:58
PROVIDERS: PCP Physician Assistant; Visit Provider Physician Assistant
DX: Z01.818 Encounter for other preprocedural examination (principal); E78.2 Mixed hyperlipidemia
CPT/HCPCS: 36415; 80048; 80061; 85027; 85610; 93005

== ENCOUNTER → 2022-07-04 08:53 | Outpatient (BNVA) | payer MEDICARE, SELFPAY | PROVIDERS: PCP Physician Assistant; Visit Provider Physician Assistant Surgical | DX: E66.3 Overweight (principal); L98.7 Excessive and redundant skin and subcutaneous tissue; Z98.84 Bariatric surgery status; Z68.28 Body mass index [BMI] 28.0-28.9, adult | CPT/HCPCS: 99212 ==

== ENCOUNTER → 2022-07-25 08:15 | Outpatient (BNVA) | payer MEDICARE, SELFPAY | PROVIDERS: PCP Physician Assistant; Visit Provider Surgery | DX: L98.7 Excessive and redundant skin and subcutaneous tissue (principal); K91.2 Postsurgical malabsorption, not elsewhere classified; Z90.3 Acquired absence of stomach [part of] | CPT/HCPCS: Q3014 ==

== ENCOUNTER → 2022-07-31 08:43 | Outpatient (BNVA) | payer MEDICARE, SELFPAY | PROVIDERS: PCP Physician Assistant; Visit Provider Surgery ==

== ENCOUNTER 2022-08-09 07:51 | Day surgery (SDC) | payer MEDICARE, SELFPAY ==
[2022-07-30 06:16] LABS: MANUAL DIFF FLAG NO
[2022-07-30 07:58] LABS: Basophils Percent Auto 0.5 % (0-2); Eosinophils Absolute Auto 0.1 X10*3/uL (0.0-0.4); Eosinophils Percent Auto 1.9 % (0-4); Hematocrit 48.7 % (42.0-52.0); Hemoglobin 15.8 g/dl (14.0-18.0); Imm Gran Abs Auto 0.02 X10*3/uL (0.00-0.03); Imm Gran Pct Auto 0.3 % (0.0-0.4); Lymphocytes Absolute Auto 2.2 X10*3/uL (1.2-4.9); Lymphocytes Percent Auto 34.6 % (20-40); Mean Corpuscular HGB Conc 32.4 g/dl (31.0-36.0); Mean Corpuscular Hemoglobin 29.6 pg (27.0-33.0); Mean Corpuscular Volume 91.4 fL (80.0-98.0); Mean Platelet Volume 11.3 fL (9.4-12.4); Monocytes Absolute Auto 0.7 X10*3/uL (0.1-1.2); Monocytes Percent Auto 11.4 % (2-11); Neutrophils Absolute Auto 3.2 x10*3/uL (2.0-8.3); Neutrophils Percent Auto 51.3 % (45-73); Platelet Count 169 X10*3/uL (160-400); Red Blood Count 5.33 X10*6/uL (4.60-5.80); Red Cell Distribution Width 12.9 % (11.0-16.0); White Blood Count 6.2 X10*3/uL (4.8-10.8)
[2022-07-30 08:03] LABS: Prothrombin Time 11.4 SEC (10.0-13.1)
[2022-07-30 08:06] LABS: Partial Thromboplastin Time 35.9 SEC (26.0-36.4)
[2022-07-30 08:09] LABS: Estimated Average Glucose 108 mg/dL; Hemoglobin A1c % 5.4 %
[2022-07-30 08:34] LABS: Alanine Aminotransferase 60 U/L (0-40); Albumin Level 4.1 g/dL (3.5-5.0); Alkaline Phosphatase 65 U/L (39-117); Anion Gap 13 (12-20); Aspartate Amino Transferase 20 U/L (5-37); Blood Urea Nitrogen 16 mg/dL (9-16); Calcium 9.6 mg/dL (8.4-10.2); Carbon Dioxide 30 mmol/L (22-29); Chloride 103 mmol/L (96-108); Estimated Glomerular Filt Rate > 60; Glucose Random 102 mg/dL (60-115); Potassium 4.2 mmol/L (3.3-5.1); Sodium 142 mmol/L (135-145); Total Protein 6.2 g/dL (6.5-8.0)
[2022-07-30 10:17] VITALS: BMI 28.0
--- NOTE | 2022-08-04 12:39 | MHC.SHP ---
Pre-Procedural Eval Section A Date of Service: 08/04/22 The patient is an INPATIENT: No The History & Physical has been completed within 30 days and I have reviewed it.: Yes Section B Chief Complaint: Excessive,redundant skin and subcutaneous tissue Relevant Family History (Specify if Yes): No Relevant Social History: None Present Medications: None Medical History: No relevant PMH History of Previous Operations: Relevant previous surgery/procedure and date(s) (laparoscopic sleeve gastrectomy) Allergies: Allergies Allergy/AdvReac Type Severity Reaction Status Date / Time No Known Allergies Allergy Verified 07/25/22 09:40 [No Known Allergies*] Review of Systems Sugical H&P ROS: Negative: Constitution, Cardiovascular, Respiratory, Neurological, Psychiatric, Hem-Onc, Allergic/Immunologic, Gastrointestinal, Genitourinary, Musculoskeletal, Integumentary, Endocrine and Eyes/Ears/Nose/Throat Exam Surgical H&P Exam: Normal: HEENT, Normal: Heart, Normal: Lungs, Normal: Extremities, Normal: Abdomen, Normal: Skin and Normal: Neurological Plan Diagnosis/Plan: Unchanged I have reviewed the history and physical and performed a pertinent physical examination on my patient. No changes have occurred unless specified. Time Spent With Patient Time: Total time managing care of this patient today ____ minutes.
--- NOTE | 2022-08-08 09:01 | P.CONAN_ITS ---
Documented by User: Nicolle Schneider NP 08/08/22 09:04 HPI - Anesthesia Eval Consult details Narrative: 67yo M for Panniculectomy s/p gastric sleeve 06/2021 with GA-ETT 7.5 PCP cleared 07/15 for podiatry procedure PMFSH Active Problems Active Problems: All Active Problems (Updated 07/30/22 @ 10:17 by Mounika Jones RN) Obese (Acute) DMII (diabetes mellitus, type 2) (Acute) HLD (hyperlipidemia) (Acute) BMI 35.0-35.9,adult (Acute) Abnormal myocardial perfusion study (Acute) Hiatal hernia (Acute) Congenital intra-abdominal adhesions (Acute) Elevated blood pressure reading (Acute) HTN (hypertension) (Acute) Overweight (BMI 25.0-29.9) (Acute) Erectile dysfunction (Acute) Excess skin (Acute) Viral upper respiratory illness (Acute) Pre-op evaluation (Acute) Postgastrectomy malabsorption (Acute) History of repair of hiatal hernia (Acute) S/P laparoscopic sleeve gastrectomy (Acute) Diastolic dysfunction (Acute) Steatosis, liver (Acute) Migraines (Acute) DJD (degenerative joint disease) (Acute) Past Medical History Medical History Arthritis BMI 33.0-33.9,adult Colon cancer screening Diastolic dysfunction DJD (degenerative joint disease) Elevated cholesterol Lumbar disc disease Migraines Obesity (BMI 30.0-34.9) Postgastrectomy malabsorption Steatosis, liver Tendinopathy of left shoulder Vitamin D deficiency Family History Family History Father Diabetes Heart problem Mother Breast cancer Diverticulitis Family history of problems with anesthesia: No Surgical History Surgical History H/O colonoscopy Hernia History of repair of hiatal hernia Hx of arthroscopic knee surgery Hx of tooth extraction Rupture of right patellar tendon S/P laparoscopic sleeve gastrectomy History of Problems with Anesthesia: No Social History Social History Housing: House Are you a primary home care administrator to a significant other at home: No Do you presently have visiting nurse or other home services: No Alcohol intake: current Alcohol intake frequency: does not drink Patient Tobacco Use Status: Former Tobacco user Quit Date: ~age 26 Tobacco use type: Cigarette Years Smoked: 10 e-Cigarette/Vaping Use: Never Used Use of substances other than those prescribed or required for medical reasons: No Have you been hit, kicked, punched, or otherwise hurt by someone within the past year? If so, by whom?: No Are you DNR?: No Advance Directives: Yes Advance Directives Information Provided: Yes Advance Directives on File: Yes Advance Directives Date on File: 07/04/21 Recently lost weight without trying: No Eating poorly because of decreased appetite: No Nutrition Risks: No Nutritional Risk Poor oral hygiene: No service: No Current occupational status: retired Cognitive needs: No Hearing needs: No Vision needs: Yes Meds Allergies Allergy/AdvReac Type Severity Reaction Status Date / Time No Known Allergies Allergy Verified 07/25/22 09:40 [No Known Allergies*] Exam Exam Date and Time: August 08, 2022 0901 Height,Weight and Vital Signs: Height 6 ft 5 in Weight 107.048 kg Pertinent Lab Results Pertinent Lab Results: Laboratory Tests 07/30/22 07/30/22 07/30/22 06:12 06:12 06:12 WBC 6.2 RBC 5.33 Hgb 15.8 Hct 48.7 MCV 91.4 MCH 29.6 MCHC 32.4 RDW 12.9 Plt Count 169 MPV 11.3 Immature Gran % (Auto) 0.3 Neut % (Auto) 51.3 Lymph % (Auto) 34.6 [place] % (Auto) 11.4 H Eos % (Auto) 1.9 Baso % (Auto) 0.5 Lymph # (Auto) 2.2 [place] # (Auto) 0.7 Eos # (Auto) 0.1 Baso # (Auto) 0.0 Abs Immat Gran (auto) 0.02 Absolute Neuts (auto) 3.2 Absolute Nucleated RBC 0.000 Nucleated RBC % (auto) 0.0 PT 11.4 INR 1.0 APTT 35.9 Sodium 142 Potassium 4.2 Chloride 103 Carbon Dioxide 30 H Anion Gap 13 BUN 16 Creatinine 0.83 Estim Creat Clear Calc TNP Estimated GFR > 60 Random Glucose 102 Estimat Average Glucose Hemoglobin A1c % Calcium 9.6 Total Bilirubin 1.0 AST 20 ALT 60 H Alkaline Phosphatase 65 Total Protein 6.2 L Albumin 4.1 Blood Type Antibody Screen 07/30/22 07/30/22 06:12 06:12 WBC RBC Hgb Hct MCV MCH MCHC RDW Plt Count MPV Immature Gran % (Auto) Neut % (Auto) Lymph % (Auto) [place] % (Auto) Eos % (Auto) Baso % (Auto) Lymph # (Auto) [place] # (Auto) Eos # (Auto) Baso # (Auto) Abs Immat Gran (auto) Absolute Neuts (auto) Absolute Nucleated RBC Nucleated RBC % (auto) PT INR APTT Sodium Potassium Chloride Carbon Dioxide Anion Gap BUN Creatinine Estim Creat Clear Calc Estimated GFR Random Glucose Estimat Average Glucose 108 Hemoglobin A1c % 5.4 Calcium Total Bilirubin AST ALT Alkaline Phosphatase Total Protein Albumin Blood Type AB Positive Antibody Screen NEGATIVE Narrative Narrative: EKG 06/2022 Vent. Rate : 060 BPM ? ? Atrial Rate : 060 BPM ?? P-R Int : 150 ms? QRS Dur : 086 ms ? ? QT Int : 404 ms ? ? ? P-R-T Axes : -12 013 020 degrees ?? QTc Int : 404 ms ? Sinus rhythm with Premature atrial complexes Low voltage QRS Borderline ECG When compared with ECG of 16-MAY-2021 06:37, No significant change was found Assessment and Plan Assessment Anesthesia Assessment: Chart Reviewed Final Anesthetic Review Family History of Problems with Anesthesia: No History of Problems with Anesthesia: No Documented by User: Senia Cho MD 08/09/22 10:54 [facility] Past Medical History Medical History Arthritis BMI 33.0-33.9,adult Colon cancer screening Diastolic dysfunction DJD (degenerative joint disease) Elevated cholesterol Lumbar disc disease Migraines Obesity (BMI 30.0-34.9) Postgastrectomy malabsorption Steatosis, liver Tendinopathy of left shoulder Vitamin D deficiency Family History Family History Father Diabetes Heart problem Mother Breast cancer Diverticulitis Surgical History Surgical History H/O colonoscopy Hernia History of repair of hiatal hernia Hx of arthroscopic knee surgery Hx of tooth extraction Rupture of right patellar tendon S/P laparoscopic sleeve gastrectomy Social History Social History Housing: House Are you a primary home care administrator to a significant other at home: No Do you presently have visiting nurse or other home services: No Alcohol intake: current Alcohol intake frequency: does not drink Patient Tobacco Use Status: Former Tobacco user Quit Date: ~age 26 Tobacco use type: Cigarette Years Smoked: 10 e-Cigarette/Vaping Use: Never Used Use of substances other than those prescribed or required for medical reasons: No Have you been hit, kicked, punched, or otherwise hurt by someone within the past year? If so, by whom?: No Are you DNR?: No Advance Directives: Yes Advance Directives Information Provided: Yes Advance Directives on File: Yes Advance Directives Date on File: 07/04/21 Recently lost weight without trying: No Eating poorly because of decreased appetite: No Nutrition Risks: No Nutritional Risk Poor oral hygiene: No service: No Current occupational status: retired Cognitive needs: No Hearing needs: No Vision needs: Yes Meds Allergies Allergy/AdvReac Type Severity Reaction Status Date / Time No Known Allergies Allergy Verified 07/25/22 09:40 [No Known Allergies*] Exam Height,Weight and Vital Signs: Height 6 ft 5 in no Weight 107.048 kg Pertinent Lab Results Pertinent Lab Results: Laboratory Tests 07/30/22 07/30/22 07/30/22 06:12 06:12 06:12 WBC 6.2 RBC 5.33 Hgb 15.8 Hct 48.7 MCV 91.4 MCH 29.6 MCHC 32.4 RDW 12.9 Plt Count 169 MPV 11.3 Immature Gran % (Auto) 0.3 Neut % (Auto) 51.3 Lymph % (Auto) 34.6 [place] % (Auto) 11.4 H Eos % (Auto) 1.9 Baso % (Auto) 0.5 Lymph # (Auto) 2.2 [place] # (Auto) 0.7 Eos # (Auto) 0.1 Baso # (Auto) 0.0 Abs Immat Gran (auto) 0.02 Absolute Neuts (auto) 3.2 Absolute Nucleated RBC 0.000 Nucleated RBC % (auto) 0.0 PT 11.4 INR 1.0 APTT 35.9 Sodium 142 Potassium 4.2 Chloride 103 Carbon Dioxide 30 H Anion Gap 13 BUN 16 Creatinine 0.83 Estim Creat Clear Calc TNP Estimated GFR > 60 Random Glucose 102 Estimat Average Glucose Hemoglobin A1c % Calcium 9.6 Total Bilirubin 1.0 AST 20 ALT 60 H Alkaline Phosphatase 65 Total Protein 6.2 L Albumin 4.1 Blood Type Antibody Screen 07/30/22 07/30/22 06:12 06:12 WBC RBC Hgb Hct MCV MCH MCHC RDW Plt Count MPV Immature Gran % (Auto) Neut % (Auto) Lymph % (Auto) [place] % (Auto) Eos % (Auto) Baso % (Auto) Lymph # (Auto) [place] # (Auto) Eos # (Auto) Baso # (Auto) Abs Immat Gran (auto) Absolute Neuts (auto) Absolute Nucleated RBC Nucleated RBC % (auto) PT INR APTT Sodium Potassium Chloride Carbon Dioxide Anion Gap BUN Creatinine Estim Creat Clear Calc Estimated GFR Random Glucose Estimat Average Glucose 108 Hemoglobin A1c % 5.4 Calcium Total Bilirubin AST ALT Alkaline Phosphatase Total Protein Albumin Blood Type AB Positive Antibody Screen NEGATIVE Airway Mallampati Class: II (edentulous) TM Dist: >3cm Neck ROM: Full Denture: Upper and Lower Loose/Missing/Broken Teeth: Yes, Upper and Lower Heart: RRR Lungs: CTA Assessment and Plan Assessment Anesthesia Assessment: Anesthesia Plan Discussed Final Anesthetic Review NPO: Yes ASA Class: II Final Preanesthetic Review: Meds/Allgs Chart Reviewed, Consent Obtained/Reviewed and Anes Risks/Benef Reviewed Patient Risk: Low Procedure Risk: Low Anesthetic Plan Anesthetic Plan: GA Disposition: Standard PACU
[2022-08-08 14:05] LABS: COVID-19 Test Negative (Negative); IDNOW Serial# BCCEAD1C
[2022-08-09] VITALS (12 sets, daily range): BP systolic 129–165; BP diastolic 67–85; PULSE 55–87; RESP 14–18; TEMP 36.6–36.9; O2SAT 96–100
[2022-08-09] MEDS: Lactated Ringers 1,000 ML 100 ML IVCONT (08:18)
--- NOTE | 2022-08-09 10:14 | PM.OP ---
Brief Operative Note Date of Service: 08/09/22 Pre-op diagnosis: Excess skin due to massive weight loss Post-op diagnosis: same Procedure: PROCEDURE: Panniculectomy with umbilical transposition and bilateral subcutaneous fat flaps INDICATION: This a 67 year old male who underwent laparoscopic sleeve gastrectomy on 07/04/2021. He had an excellent result achieving a BMI of 28.1 kg/m2 with a total weight loss of 73.2lbs, or 23.6% of his TBWL. As a result, he has developed panniculitis which has not resolved despite continuous use of clotrimazole ointment as well as skin irritation. On exam he has extreme skin laxity due to massive weight loss, with the abdominal pannus completely hanging 4cm below the pubis. Panniculectomy was recommended. We discussed the two options for the panniculectomy of using a combined vertical and horizontal incisions or just a horizontal (bikini) incision. It was my recommendation to do only horizontal incision based on his body habitus and skin laxity. The patient agreed with this. Risks and complications were discussed with the patient including bleeding, infection, umbilical loss, flap necrosis, asymmetry, dehiscence, seroma, VTE. The patient understood the risks and was in agreement to proceed with surgery. PROCEDURE: The incisions were appropriately marked at the preop area with the patient standing and laying down. After induction of general anesthesia a Dumont catheter and pneumatic compression devices were placed. The patient was prepped and draped in the usual sterile manner and the incisions were marked again and confirmed. The skin was infiltrated with lidocaine and epinephrine. The #10 blade scalpel was used for the large incisions and the #15 blade scalpel for the umbilicus. Cautery was used to divide the subcutaneous tissues until the fascia was identified. Then I used the Sonincision (datatracker) to separate the pannus from the fascia. The inferior incision was made initially and I mobilized the flap for a several centimeters cephalad to the umbilicus. The umbilicus was incised circumferentially and detached from the surrounding tissues all the way to the fascia while its stalk was preserved. With the patient in reflex position I confirmed that the skin flaps were appropriate and would allow for the tissues to come together with reasonable tension. At that point a horizontal incision was made 4 cm above the umbilicus. #10 blade was used for the skin, cautery for the dermis and the Thunderbeat for the remaining tissues. A subcutaneous fat flap was raised from the upper skin flap in order to fill the space under the skin and support the closure of the two flaps. In addition the inferior flap was mobilized caudally for a few centimeters to create a space for the subcutaneous fat flap as well as relieve tension from the closure. A circumferential incision was made at the area where the umbilicus would be re-implanted. The umbilicus was appropriately oriented and was delivered through the defect and was secured in place with a [place]. No bleeding was noted anywhere. One RENALDO drain was placed from the left corner of the horizontal incision across the wound and was secured in place with a silk suture. A total of 14ml of Zynrelef was applied on top of the fascia and under the subcutaneous fat flaps. The subcutaneous fat flap was secured under the inferior flap with several interrupted 3.0 Monocryl sutures. The two flaps were brought together and were attached at the midline of the horizontal incision with a #3.0 Monocryl suture. At that point the umbilicus was properly oriented and was re-approximated to the skin with 8 interrupted 3.0 Monocryl sutures. In a similar fashion the skin flaps were re-approximated with multiple 3.0 Monocryl sutures. The skin was closed in all incisions and umbilicus with 4.0 Monocryl sutures. Steri-strips, xeroform gauzes and gauzes were used to cover the incisions. An abdominal binder was also placed. The was awaken and was transferred to the recover room in a stable condition. I was present and performed the entire procedure. Ms. Bautista was the first sampler. Josh Adams MD, PhD, FACS Surgeon: Zelalem Adams MD Surgeon: Zelalem Adams MD Anesthesia: GETA, local and other (14ml Zynrelef) Was an Fashion Designer used for this Procedure?: No Fashion Designer: Alessandra Bautista Estimated blood loss (mL): 10 IV fluids (mL): 2,100 Urine output (mL): 150 Pathology: other (Abdominal pannus) Condition: stable Disposition: PACU
[2022-08-09] MEDS: ceFAZolin Sodium/Dextrose,Iso 2 GM/50 ML PIGGYBACK IV (14:20)
== END 2022-08-09 17:33 | disposition home or self-care (01) ==
PROVIDERS: Physician Assistant Surgical; PCP Physician Assistant; Visit Provider Surgery
PROC: 0JB80ZZ Excision of Abdomen Subcutaneous Tissue and Fascia, Open Approach (ICD-10-PCS; CPT 15830; principal; 2022-08-09 10:10)
DX: L98.7 Excessive and redundant skin and subcutaneous tissue (principal); M79.3 Panniculitis, unspecified; E65 Localized adiposity; L24.9 Irritant contact dermatitis, unspecified cause; L57.4 Cutis laxa senilis; K91.2 Postsurgical malabsorption, not elsewhere classified; Z98.84 Bariatric surgery status; Z90.3 Acquired absence of stomach [part of]; I51.9 Heart disease, unspecified; I10 Essential (primary) hypertension; E78.2 Mixed hyperlipidemia; Z79.899 Other long term (current) drug therapy; E11.9 Type 2 diabetes mellitus without complications; K76.0 Fatty (change of) liver, not elsewhere classified; E55.9 Vitamin D deficiency, unspecified; Z87.891 Personal history of nicotine dependence; Z20.822 Contact with and (suspected) exposure to COVID-19
CPT/HCPCS: 15830; 15847; 36415; 80053; 83036; 85025; 85610; 85730; 86850; 86900; 86901; 87635; 88304; C9088; J0131; J0690; J1100; J1170; J2250; J2405; J3010; J3370

== ENCOUNTER → 2022-08-15 10:59 | Outpatient (BNVA) | payer MEDICARE, SELFPAY | PROVIDERS: PCP Physician Assistant; Visit Provider Physician Assistant Surgical | DX: Z98.890 Other specified postprocedural states (principal) | CPT/HCPCS: 99212 ==

== ENCOUNTER → 2022-08-22 11:04 | Outpatient (BNVA) | payer MEDICARE, SELFPAY | PROVIDERS: PCP Physician Assistant; Visit Provider Physician Assistant Surgical | DX: Z98.890 Other specified postprocedural states (principal) | CPT/HCPCS: 99212 ==

== ENCOUNTER → 2022-08-29 10:14 | Outpatient (BNVA) | payer MEDICARE, SELFPAY | PROVIDERS: PCP Physician Assistant; Referring Provider Physician Assistant; Visit Provider Physician Assistant Surgical | DX: Z98.890 Other specified postprocedural states (principal) | CPT/HCPCS: 99212 ==

== ENCOUNTER → 2022-09-04 09:53 | Outpatient (BNVA) | payer MEDICARE, SELFPAY | PROVIDERS: PCP Physician Assistant; Visit Provider Physician Assistant | DX: Z98.890 Other specified postprocedural states (principal) | CPT/HCPCS: 99212 ==

== ENCOUNTER → 2022-09-10 08:42 | Outpatient (BNVA) | payer MEDICARE, SELFPAY | PROVIDERS: PCP Physician Assistant; Visit Provider Surgery | DX: Z98.890 Other specified postprocedural states (principal) | CPT/HCPCS: 99212 ==

== ENCOUNTER 2022-09-28 12:09 | Outpatient (REF) | payer MEDICARE, SELFPAY | END 2022-09-28 12:10 | disposition home or self-care (01) | LOC: HO.LAB 12:09 | PROVIDERS: PCP Physician Assistant; Visit Provider Physician Assistant Surgical | DX: Z13.89 Encounter for screening for other disorder (principal) | CPT/HCPCS: 87070; 87073; 87205 ==

== ENCOUNTER 2022-09-28 13:00 | Outpatient (REF) | payer MEDICARE, SELFPAY | END 2022-09-28 13:01 | disposition home or self-care (01) | LOC: HO.US 13:00 | PROVIDERS: Visit Provider Physician Assistant Surgical | DX: L03.90 Cellulitis, unspecified (principal); Z98.890 Other specified postprocedural states | CPT/HCPCS: 76705; 87070; 87073; 87205 ==

== ENCOUNTER 2022-10-01 13:49 | Outpatient (AMB) | payer MEDICARE, SELFPAY ==
--- NOTE | 2022-10-01 14:06 | MHC.OFFVISWM ---
Intake VS Expanded 10/01/22 14:16 Height 6 ft 5 in Weight 234 lb 6.4 oz BMI 27.8 BP 136/72 Blood Pressure Location Rt brachial Blood Pressure Position Sitting Pulse 67 Pulse Source Pulse Oximeter Temp 97.6 F Temperature Source Temporal Artery Scan Pulse Oximetry 98 Oxygen Delivery Method Room Air Body Fat 67.4 Body Fat Percentage 28.8 Free Fat Mass 166.8 Muscle Mass 158.8 Visceral Mass 16.0 Water Mass 109.2 BMR 2,235 Intake Visit Reasons: (OV) s/p Panniculectomy 08/09/22 Videotape Operator Required: No Power Chisel Operator: Power Chisel Operator offered & declined Allergies No Known Allergies [No Known Allergies*] Allergy (Verified 10/01/22 14:12) Medication List - Last Reconciled 10/01/22 by Riley Shannon MD docusate sodium 100 mg PO DAILY PRN doxycycline monohydrate 100 mg PO BID 14 days HPI HPI Comments History of Present Illness Details 67 yo male s/p panniculectomy 08/09/22. Percutaneous aspiration of approximately 500 cc last week. no complaints of pain or fevers Patient is feeling better and reports less pain and swelling. The erythema is starting to resolve PFS Medical History (Updated 09/28/22 @ 14:23 by BIJAL Weeks) Arthritis BMI 33.0-33.9,adult Colon cancer screening Diastolic dysfunction DJD (degenerative joint disease) Elevated cholesterol Hx of panniculitis Lumbar disc disease Migraines Obesity (BMI 30.0-34.9) Postgastrectomy malabsorption Steatosis, liver Tendinopathy of left shoulder Vitamin D deficiency Surgical History H/O colonoscopy Hernia History of repair of hiatal hernia Hx of arthroscopic knee surgery Hx of tooth extraction Rupture of right patellar tendon S/P laparoscopic sleeve gastrectomy Family History Father Diabetes Heart problem Mother Breast cancer Diverticulitis Social History Housing: House Are you a primary resident care manager rn to a significant other at home: No Do you presently have visiting nurse or other home services: No Alcohol intake: current Alcohol intake frequency: does not drink Patient Tobacco Use Status: Former Tobacco user Quit Date: ~age 26 Tobacco use type: Cigarette Years Smoked: 10 e-Cigarette/Vaping Use: Never Used Advance Directives Date on File: 07/04/21 service: No Current occupational status: retired Cognitive needs: No Hearing needs: No Vision needs: Yes Physical Exam Vital Signs: Last Vital Signs Temp 97.6 F 10/01/22 14:16 Pulse 67 10/01/22 14:16 BP 136/72 10/01/22 14:16 Pulse Ox 98 10/01/22 14:16 Oxygen Delivery Method Room Air 10/01/22 14:16 BMI result Body Mass Index 27.8 On exam, the patient is afebrile and nontoxic Small residual amount of seroma is noted. Options of continued observation, ultrasonography and possible drainage verses office aspiration were reviewed. After cleaning the area with Betadine, 1% lidocaine with epi was infiltrated and an 18 gauge needle used to aspirate 40 cc of serosanguineous material with apparent complete resolution. Results Reviewed Results Reviewed: Gram stain and cultures from last week are negative Assessment & Plan Assessment & Plan (1) Abdominal wall seroma: Code(s): S30.1XXA - Contusion of abdominal wall, initial encounter (2) Cellulitis: Code(s): L03.90 - Cellulitis, unspecified (3) S/P panniculectomy: Code(s): Z98.890 - Other specified postprocedural states (4) Obese: Code(s): E66.9 - Obesity, unspecified Qualifiers: Obesity type: due to excess calories Obesity classification: adult class 1 (BMI 30 - 34.9) Serious obesity comorbidity presence: without serious comorbidity Body mass index: BMI 32.0-32.9 Qualified Code(s): E66.09 - Other obesity due to excess calories; Z68.32 - Body mass index [BMI] 32.0-32.9, adult (5) DMII (diabetes mellitus, type 2): Code(s): E11.9 - Type 2 diabetes mellitus without complications Qualifiers: Diabetes mellitus exterminator helper termite insulin use: without shelter use Diabetes mellitus complication status: without complication Qualified Code(s): E11.9 - Type 2 diabetes mellitus without complications Plan The patient is improving on doxycycline and will continue. Patient is encouraged to use the abdominal binder but notes that he is very hot and uncomfortable wearing it, so we will limited to when he is being very active. Patient will return to see me and will contact me before then if he has worsening collection, pain, fevers or drainage. Coding Level of Care Code Global (00776) Diagnoses Abdominal wall seroma S30.1XXA Cellulitis L03.90 S/P panniculectomy Z98.890 Obese E66.09; Z68.32 Obesity type: due to excess calories Obesity classification: adult class 1 (BMI 30 - 34.9) Serious obesity comorbidity presence: without serious comorbidity Body mass index: BMI 32.0-32.9 DMII (diabetes mellitus, type 2) E11.9 Diabetes mellitus exterminator helper termite insulin use: without exterminator helper termite use Diabetes mellitus complication status: without complication
[2022-10-01 14:16] VITALS: BP 136/72; PULSE 67; TEMP 36.4; O2SAT 98; BMI 27.8
== END 2022-10-01 14:30 | disposition home or self-care (01) ==
PROVIDERS: PCP Physician Assistant; Visit Provider Surgery
DX: L98.7 Excessive and redundant skin and subcutaneous tissue (principal); Z68.27 Body mass index [BMI] 27.0-27.9, adult; Z90.3 Acquired absence of stomach [part of]; Z98.84 Bariatric surgery status; E11.9 Type 2 diabetes mellitus without complications
CPT/HCPCS: 99024

== ENCOUNTER → 2022-10-01 13:49 | Outpatient (BNVA) | payer MEDICARE, SELFPAY | PROVIDERS: PCP Physician Assistant; Visit Provider Surgery ==

== ENCOUNTER 2022-10-04 12:36 | Outpatient (AMB) | payer MEDICARE, SELFPAY ==
--- NOTE | 2022-10-04 12:55 | MHC.OFFVISWM ---
Intake VS Expanded 10/04/22 13:00 Height 6 ft 5 in BP 128/72 Blood Pressure Location Lt brachial Blood Pressure Position Sitting Pulse 66 Pulse Source Pulse Oximeter Temp 97.6 F Temperature Source Temporal Artery Scan Pulse Oximetry 99 Oxygen Delivery Method Room Air Intake Visit Reasons: (OV) s/p Panniculectomy 08/09/22 Business System Consultant Required: No Allergies No Known Allergies [No Known Allergies*] Allergy (Verified 10/04/22 13:01) Medication List - Last Reconciled 10/04/22 by Riley Shannon MD docusate sodium 100 mg PO DAILY PRN doxycycline monohydrate 100 mg PO BID 14 days HPI HPI Comments History of Present Illness Details 67 yo male s/p panniculectomy 08/09/22. Percutaneous aspiration of approximately 500 cc last week. no complaints of pain or fevers Patient is feeling better and reports less pain and swelling. The erythema has starting to resolve & he denies any fevers, drainage or tachycardia, but the seroma is rubbing on his shorts/pants and symptomatic and irritating his skin. [facility] Medical History (Updated 09/28/22 @ 14:23 by BIJAL Weeks) Arthritis BMI 33.0-33.9,adult Colon cancer screening Diastolic dysfunction DJD (degenerative joint disease) Elevated cholesterol Hx of panniculitis Lumbar disc disease Migraines Obesity (BMI 30.0-34.9) Postgastrectomy malabsorption Steatosis, liver Tendinopathy of left shoulder Vitamin D deficiency Surgical History H/O colonoscopy Hernia History of repair of hiatal hernia Hx of arthroscopic knee surgery Hx of tooth extraction Rupture of right patellar tendon S/P laparoscopic sleeve gastrectomy Family History Father Diabetes Heart problem Mother Breast cancer Diverticulitis Social History Housing: House Are you a primary director critical care to a significant other at home: No Do you presently have visiting nurse or other home services: No Alcohol intake: current Alcohol intake frequency: does not drink Patient Tobacco Use Status: Former Tobacco user Quit Date: ~age 26 Tobacco use type: Cigarette Years Smoked: 10 e-Cigarette/Vaping Use: Never Used Advance Directives Date on File: 07/04/21 service: No Current occupational status: retired Cognitive needs: No Hearing needs: No Vision needs: Yes Review of Systems Const All systems reviewed & are unremarkable except as noted in HPI and below Physical Exam Vital Signs: Last Vital Signs Temp 97.6 F 10/04/22 13:00 Pulse 66 10/04/22 13:00 BP 128/72 10/04/22 13:00 Pulse Ox 99 10/04/22 13:00 Oxygen Delivery Method Room Air 10/04/22 13:00 On exam, the patient is nontoxic He is having no respiratory difficulty The right lower side of his panniculectomy incision has no erythema, but persistent induration and recurrent seroma is present. Results Reviewed Results Reviewed: Gram stain and cultures from last week are negative Assessment & Plan Assessment & Plan (1) Abdominal wall seroma: Code(s): S30.1XXA - Contusion of abdominal wall, initial encounter (2) S/P panniculectomy: Code(s): Z98.890 - Other specified postprocedural states Plan The option of continued observation and waiting for resolution was discussed, but the patient believes the seroma is symptomatic enough that he would like it drained. We discussed the pros and cons of percutaneous office drainage versus placement of definitive drain in IR which would be more definitive then repeat office procedures and less of a risk of infection due to definitive drainage. While the drain is placed, the patient would not be able to shower. He seemed understand the risks, benefits of the options and he would like to proceed with percutaneous IR drain placement in an attempt to resolve the seroma as quickly as possible. IR order has been placed by Glen Oates PA-C; in communication with the IR department, they will call call the patient and planned for 10/05/2022. The patient is advised to make arrangements regarding transportation in case IV sedation is required. Coding Level of Care Code Global (89248) Diagnoses Abdominal wall seroma S30.1XXA S/P panniculectomy Z98.890
[2022-10-04 13:00] VITALS: BP 128/72; PULSE 66; TEMP 36.4; O2SAT 99
== END 2022-10-04 14:18 | disposition home or self-care (01) ==
PROVIDERS: PCP Physician Assistant; Visit Provider Surgery
DX: S30.1XXA Contusion of abdominal wall, initial encounter (principal); L98.7 Excessive and redundant skin and subcutaneous tissue; Z90.3 Acquired absence of stomach [part of]; Z98.84 Bariatric surgery status
CPT/HCPCS: 99024

== ENCOUNTER → 2022-10-04 12:36 | Outpatient (BNVA) | payer MEDICARE, SELFPAY | PROVIDERS: PCP Physician Assistant; Visit Provider Surgery ==

== ENCOUNTER 2022-10-05 12:45 | Day surgery (SDC) | payer MEDICARE, SELFPAY ==
--- NOTE | ~2022-10-05 | US_ITS ---
EXAMINATION: ULTRASOUND-GUIDED ABDOMINAL WALL SEROMA/HEMATOMA DRAINAGE CLINICAL INDICATION: Abdominal wall recurrent seroma. TECHNIQUE: Following explaining ultrasound-guided placement of a drainage catheter in the right abdominal wall seroma procedure, benefits and risk, a written consent was obtained. Patient was placed supine on ultrasound stretcher and preliminary ultrasound imaging was obtained. The boundaries of the collection were marked on the skin. A site was selected along the right abdomen and marked. Marked site was cleaned and draped in usual sterile manner with 2% chlorhexidine solution. 1% lidocaine was administered at puncture site. A 5 [place] Yueh catheter was then advanced through a small skin incision obliquely into the right abdominal wall collection. After observing fluid return, stylet was withdrawn and 0.035 guidewire was advanced and the Yueh catheter was removed. Over the guidewire a 10.2 [place] catheter with stiffener was inserted into the collection. The guidewire and the stiffener were slowly removed. There was immediately a lot of drainage. A single valve catheter was attached to stop the drainage. A drainage bag was then connected to the single valve. The catheter anchored to the skin with 3-0 non-absorbable sutures. A sterile dressing was applied at the puncture site. Patient tolerated the procedure extremely well. How the drainage bag can be drained and changed was shown to the patient. FINDINGS: There is a large septated anechoic fluid collection in the anterior abdominal wall consistent with seroma. A 10.2 [place] catheter was left in the abdominal wall seroma with ultrasound guidance. US/US drain soft tissue w imaging IMPRESSION: Successful placement of a 10.2 [place] APD catheter in the right anterior abdominal wall septated fluid collection/seroma. Patient was discharged after the procedure with instructions and demonstration of emptying the bulb at home.
[2022-10-05 12:56] VITALS: BMI 27.5
[2022-10-05 13:25] LABS: MANUAL DIFF FLAG NO
[2022-10-05 13:28] LABS: Basophils Percent Auto 0.3 % (0-2); Eosinophils Absolute Auto 0.1 X10*3/uL (0.0-0.4); Hematocrit 45.8 % (42.0-52.0); Hemoglobin 14.9 g/dl (14.0-18.0); Imm Gran Abs Auto 0.03 X10*3/uL (0.00-0.03); Imm Gran Pct Auto 0.3 % (0.0-0.4); Lymphocytes Absolute Auto 2.5 X10*3/uL (1.2-4.9); Lymphocytes Percent Auto 25.2 % (20-40); Mean Corpuscular HGB Conc 32.5 g/dl (31.0-36.0); Mean Corpuscular Hemoglobin 28.7 pg (27.0-33.0); Mean Corpuscular Volume 88.1 fL (80.0-98.0); Mean Platelet Volume 9.8 fL (9.4-12.4); Monocytes Percent Auto 9.8 % (2-11); Neutrophils Absolute Auto 6.4 x10*3/uL (2.0-8.3); Neutrophils Percent Auto 63.4 % (45-73); Platelet Count 224 X10*3/uL (160-400); Red Cell Distribution Width 12.1 % (11.0-16.0); White Blood Count 10.1 X10*3/uL (4.8-10.8)
[2022-10-05 13:34] LABS: Prothrombin Time 11.6 SEC (10.0-13.1)
[2022-10-05 13:36] LABS: Partial Thromboplastin Time 35.4 SEC (26.0-36.4)
[2022-10-05 13:57] LABS: Anion Gap 13 (12-20); Blood Urea Nitrogen 12 mg/dL (9-16); Carbon Dioxide 30 mmol/L (22-29); Chloride 103 mmol/L (96-108); Creatinine Clr Calc Pharmacy 120.3; Estimated Glomerular Filt Rate > 60; Potassium 4.4 mmol/L (3.3-5.1); Sodium 142 mmol/L (135-145)
[2022-10-05] MEDS: Lidocaine HCl 1 % MPF 5 ML VIAL SUBCUT (15:54)
[2022-10-05 16:18] VITALS: BP 158/74; PULSE 74; RESP 20; TEMP 36.6; O2SAT 98
== END 2022-10-05 16:20 | disposition home or self-care (01) ==
PROVIDERS: PCP Physician Assistant; Visit Provider Radiology Diagnostic Radiology
DX: L03.90 Cellulitis, unspecified (principal); K91.872 Postprocedural seroma of a digestive system organ or structure following a digestive system procedure; K95.89 Other complications of other bariatric procedure; K91.2 Postsurgical malabsorption, not elsewhere classified; Z98.84 Bariatric surgery status; I51.9 Heart disease, unspecified; E78.00 Pure hypercholesterolemia, unspecified; K76.0 Fatty (change of) liver, not elsewhere classified; Z87.891 Personal history of nicotine dependence
CPT/HCPCS: 10030; 36415; 80051; 82565; 84520; 85025; 85610; 85730; Q4186

== ENCOUNTER → 2022-10-05 14:57 | Outpatient (BNV) | payer MEDICARE, SELFPAY | PROVIDERS: PCP Physician Assistant; Visit Provider Radiology Diagnostic Radiology | DX: L02.211 Cutaneous abscess of abdominal wall (principal) | CPT/HCPCS: 10030 ==

== ENCOUNTER 2022-10-12 10:29 | Outpatient (AMB) | payer MEDICARE, SELFPAY ==
--- NOTE | 2022-10-12 10:40 | A.OFFVIS_ITS ---
Intake VS Expanded 10/12/22 10:42 Height 6 ft 5 in Weight 235 lb BMI 27.9 BP 148/78 H Blood Pressure Location Rt brachial Blood Pressure Position Sitting Pulse 73 Pulse Source Pulse Oximeter Temp 96.9 F Temperature Source Temporal Artery Scan Pulse Oximetry 100 Oxygen Delivery Method Room Air Intake Visit Reasons: (OV) s/p Panniculectomy 08/09/22 Allergies No Known Allergies [No Known Allergies*] Allergy (Verified 10/12/22 10:43) HPI HPI Comments History of Present Illness Details 67 yo male s/p panniculectomy 08/09/22. Percutaneous drain placed in IR last week, 7 days ago. Output: 10/10 20cc/10/11: 20cc & today is 15cc which the patient states his over the past 24 hours. Patient is feeling better and reports less pain and swelling. The erythema has starting to resolve & he denies any fevers, drainage or tachycardia. PFSH Medical History (Updated 09/28/22 @ 14:23 by BIJAL Weeks) Arthritis BMI 33.0-33.9,adult Colon cancer screening Diastolic dysfunction DJD (degenerative joint disease) Elevated cholesterol Hx of panniculitis Lumbar disc disease Migraines Obesity (BMI 30.0-34.9) Postgastrectomy malabsorption Steatosis, liver Tendinopathy of left shoulder Vitamin D deficiency Surgical History H/O colonoscopy Hernia History of repair of hiatal hernia Hx of arthroscopic knee surgery Hx of tooth extraction Rupture of right patellar tendon S/P laparoscopic sleeve gastrectomy Family History Father Diabetes Heart problem Mother Breast cancer Diverticulitis Social History Housing: House Are you a primary progressive care unit registered nurse to a significant other at home: No Do you presently have visiting nurse or other home services: No Alcohol intake: current Alcohol intake frequency: does not drink Patient Tobacco Use Status: Former Tobacco user Quit Date: ~age 26 Tobacco use type: Cigarette Years Smoked: 10 e-Cigarette/Vaping Use: Never Used Advance Directives Date on File: 07/04/21 service: No Current occupational status: retired Cognitive needs: No Hearing needs: No Vision needs: Yes Physical Exam Vital Signs: Last Vital Signs Temp 96.9 F 10/12/22 10:42 Pulse 73 10/12/22 10:42 BP 148/78 H 10/12/22 10:42 Pulse Ox 100 10/12/22 10:42 Oxygen Delivery Method Room Air 10/12/22 10:42 BMI result Body Mass Index 27.9 On exam he is nontoxic and in good spirits Serosanguineous drainage is present in the percutaneous bulb; this measured as 15 cc and it is clear with no turbidity nor malodorous Assessment & Plan Assessment & Plan (1) Abdominal wall seroma: Code(s): S30.1XXA - Contusion of abdominal wall, initial encounter (2) S/P panniculectomy: Code(s): Z98.890 - Other specified postprocedural states Plan Instructions regarding showering were reviewed. The patient is cleared to shower tomorrow but should not soak in a tub or pool for the next week. If he has increasing pain, redness or other problems, he will contact me, otherwise all see him again in a week. The patient was advised that postoperative induration known as the healing ridge will continue to resolve over the next few months and he was reassured this is normal part of the healing process and not persistent seroma. Questions seemed to be satisfactorily answered. Coding Level of Care Code Global (82059) Diagnoses Abdominal wall seroma S30.1XXA S/P panniculectomy Z98.890
[2022-10-12 10:42] VITALS: BP 148/78; PULSE 73; TEMP 36.1; O2SAT 100; BMI 27.9
== END 2022-10-12 10:54 | disposition home or self-care (01) ==
PROVIDERS: PCP Physician Assistant; Visit Provider Surgery
DX: L98.7 Excessive and redundant skin and subcutaneous tissue (principal); Z68.27 Body mass index [BMI] 27.0-27.9, adult; Z90.3 Acquired absence of stomach [part of]; Z98.84 Bariatric surgery status
CPT/HCPCS: 99024

== ENCOUNTER → 2022-10-12 10:29 | Outpatient (BNVA) | payer MEDICARE, SELFPAY | PROVIDERS: PCP Physician Assistant; Visit Provider Surgery ==

== ENCOUNTER 2022-10-18 14:56 | Outpatient (AMB) | payer MEDICARE, SELFPAY ==
[2022-10-18 15:04] VITALS: BP 147/74; PULSE 76; TEMP 36.7
--- NOTE | 2022-10-18 15:04 | A.OFFVIS_ITS ---
Intake VS Expanded 10/18/22 15:04 BP 147/74 H Blood Pressure Location Rt brachial Blood Pressure Position Sitting Pulse 76 Pulse Source Pulse Oximeter Temp 98.0 F Temperature Source Temporal Artery Scan Intake Visit Reasons: (OV) s/p Panniculectomy 08/09/22 Allergies No Known Allergies [No Known Allergies*] Allergy (Verified 10/18/22 15:04) HPI HPI Comments History of Present Illness Details 67 yo male s/p panniculectomy 08/09/22. Required Percutaneous drain placed in IR, now removed. Patient is doing well and anxious to resume regular activities at the gym Patient is feeling better and reports no pain. The erythema has resolved & he denies any fevers, drainage or tachycardia. PFSH Medical History Arthritis BMI 33.0-33.9,adult Colon cancer screening Diastolic dysfunction DJD (degenerative joint disease) Elevated cholesterol Hx of panniculitis Lumbar disc disease Migraines Obesity (BMI 30.0-34.9) Postgastrectomy malabsorption Steatosis, liver Tendinopathy of left shoulder Vitamin D deficiency Surgical History H/O colonoscopy Hernia History of repair of hiatal hernia Hx of arthroscopic knee surgery Hx of tooth extraction Rupture of right patellar tendon S/P laparoscopic sleeve gastrectomy Family History Father Diabetes Heart problem Mother Breast cancer Diverticulitis Social History Housing: House Are you a primary chronic care nurse to a significant other at home: No Do you presently have visiting nurse or other home services: No Alcohol intake: current Alcohol intake frequency: does not drink Patient Tobacco Use Status: Former Tobacco user Quit Date: ~age 26 Tobacco use type: Cigarette Years Smoked: 10 e-Cigarette/Vaping Use: Never Used Advance Directives Date on File: 07/04/21 service: No Current occupational status: retired Cognitive needs: No Hearing needs: No Vision needs: Yes Review of Systems Const All systems reviewed & are unremarkable except as noted in HPI and below Physical Exam Vital Signs: Last Vital Signs Temp 98.0 F 10/18/22 15:04 Pulse 76 10/18/22 15:04 BP 147/74 H 10/18/22 15:04 On exam he is nontoxic and in good spirits He is in no respiratory distress His abdominal incision is healing well with a resolving healing ridge in the central portion. His pants belt is over the incision and he was advised to avoid this since it can irritate the skin. There is no evidence of infection, drainage or tender Assessment & Plan Assessment & Plan (1) S/P panniculectomy: Code(s): Z98.890 - Other specified postprocedural states (2) Obese: Code(s): E66.9 - Obesity, unspecified Qualifiers: Obesity type: due to excess calories Obesity classification: adult class 1 (BMI 30 - 34.9) Serious obesity comorbidity presence: without serious comorbidity Body mass index: BMI 32.0-32.9 Qualified Code(s): E66.09 - Other obesity due to excess calories; Z68.32 - Body mass index [BMI] 32.0-32.9, adult (3) DMII (diabetes mellitus, type 2): Code(s): E11.9 - Type 2 diabetes mellitus without complications Qualifiers: Diabetes mellitus correction insulin use: without extermination supervisor use Diabetes mellitus complication status: without complication Qualified Code(s): E11.9 - Type 2 diabetes mellitus without complications (4) HLD (hyperlipidemia): Code(s): E78.5 - Hyperlipidemia, unspecified Qualifiers: Hyperlipidemia type: mixed hyperlipidemia Qualified Code(s): E78.2 - Mixed hyperlipidemia Plan The patient seems to be doing well. Instructions regarding activity reviewed and apparently understood. He can gradually increase his activities over the next week and is advised to avoid a swimming pool or bathtub for a another week. Is also recommended that he consider switching to suspenders are where his pants/belt so that they are not irritating his panniculectomy incision. He will reach out if there are any further problems with this panniculectomy and follow-up with 1 of the PAs in December,. Coding Level of Care Code Global (32250) Diagnoses S/P panniculectomy Z98.890 Obese E66.09; Z68.32 Obesity type: due to excess calories Obesity classification: adult class 1 (BMI 30 - 34.9) Serious obesity comorbidity presence: without serious comorbidity Body mass index: BMI 32.0-32.9 DMII (diabetes mellitus, type 2) E11.9 Diabetes mellitus correction insulin use: without correction use Diabetes mellitus complication status: without complication HLD (hyperlipidemia) E78.2 Hyperlipidemia type: mixed hyperlipidemia
== END 2022-10-18 15:17 | disposition home or self-care (01) ==
PROVIDERS: PCP Physician Assistant; Visit Provider Surgery
DX: L98.7 Excessive and redundant skin and subcutaneous tissue (principal); E66.09 Other obesity due to excess calories; Z68.32 Body mass index [BMI] 32.0-32.9, adult
CPT/HCPCS: 99024

== ENCOUNTER → 2022-10-18 14:56 | Outpatient (BNVA) | payer MEDICARE, SELFPAY | PROVIDERS: PCP Physician Assistant; Visit Provider Surgery ==

== ENCOUNTER 2022-12-25 08:20 | Outpatient (AMB) | payer MEDICARE, SELFPAY ==
[2022-12-25 08:31] VITALS: BP 118/68; PULSE 70; O2SAT 97; BMI 28.1
--- NOTE | 2022-12-25 08:31 | A.OFFPC_ITS ---
Vital Signs 12/25/22 08:31 Height 6 ft 5 in Weight 237 lb BMI 28.1 BP 118/68 Blood Pressure Location Lt brachial Position Sitting Pulse 70 Pulse Source Pulse Oximeter Pulse Oximetry (%) 97 Oxygen Delivery Method Room Air Intake Visit Reasons: 6 month f/u Allergies No Known Allergies [No Known Allergies*] Allergy (Verified 12/25/22 08:37) Medication List - Last Reconciled 12/25/22 by Jorge Parikh PA-C No Known Home Meds Tobacco use date assessed: 06/27/22 Fall risk assessment: No Falls in past year Last assessed Fall Risk: 12/25/22 Dental Screening Dental Screen Date: 12/25/22 Did you have a dental visit in the last 12 months?: No Did you have a dental problem in the last 6 months where you did not have access to dental care?: No Was dental information given to patient?: No HPI 6 month f/u HPI Details Patient is a 67-year-old male here today for follow-up visit. ?Patient has a past medical history significant for HTN, obesity and ho type 2 diabetes, s/p bariatrics sugery. Hyperlipidemia:? Now off all cholesterol medication. Most recent? LDL 117.? Will continue on statin therapy .. Status post bariatric surgery:? Recently underwent bariatric surgery and has lost a significant amount of weight.? Underwent a panniculectomy in July of 2022 which was complicated by a seroma that needed IR drainage. BMI today 28.1he is now transition to solid foods. He continues to go to the gym 5 days a week and has maintained his lower weight . .? Type 2 diabetes:? Now lifestyle contr olled.? A1c better since losing significant amount of weight status post surgery.? Now off of metformin. .. History of hypertension: Now off of blood pressure medication and is controlling his blood pressure with lifestyle modifications. [facility] Medical History Hx of panniculitis Postgastrectomy malabsorption Diastolic dysfunction Steatosis, liver BMI 33.0-33.9,adult Lumbar disc disease Arthritis Elevated cholesterol Vitamin D deficiency Migraines DJD (degenerative joint disease) Obesity (BMI 30.0-34.9) Tendinopathy of left shoulder Colon cancer screening Surgical History S/P laparoscopic sleeve gastrectomy History of repair of hiatal hernia Hx of tooth extraction H/O colonoscopy Hx of arthroscopic knee surgery Rupture of right patellar tendon Hernia Family History Father Diabetes Heart problem Mother Breast cancer Diverticulitis Social History Housing: House Are you a primary customer care consultant to a significant other at home: No Do you presently have visiting nurse or other home services: No Alcohol intake: current Alcohol intake frequency: does not drink Patient Tobacco Use Status: Former Tobacco user Quit Date: ~age 26 Tobacco use type: Cigarette Years Smoked: 10 e-Cigarette/Vaping Use: Never Used Advance Directives Date on File: 07/04/21 service: No Current occupational status: retired Cognitive needs: No Hearing needs: No Vision needs: Yes Questionnaire PHQ-9 Over the last 2 weeks, how often have you been bothered by any of the following problems? 1. Little interest or pleasure in doing things: not at all 2. Feeling down, depressed, or hopeless: not at all 3. Trouble falling or staying asleep, or sleeping too much: not at all 4. Feeling tired or having little energy: not at all 5. Poor appetite or overeating: not at all 6. Feeling bad about yourself - or that you are a failure or have let yourself or your family down: not at all 7. Trouble concentrating on things, such as reading the newspaper or watching television: not at all 8. Moving or speaking so slowly that other people could have noticed. Or the opposite - being so fidgety or restless that you have been moving around a lot more than usual: not at all 9. Thoughts that you would be better off or of hurting yourself in some way : not at all Total score: 0 Depression Screening Interpretation: Negative 76622 - PHQ-9 Billing: Yes Source: Developed by Drs. Brooks Palacios, Aurora Shields, Chris Foster and colleagues, with an educational lolly from [email or web address]. Thrive Questionnaire Date Thrive assessed: 06/27/22 AUDIT C Alcohol Use Questionnaire (AUDIT-C) 1. How often do you have a drink containing alcohol?: Never 2. How many drinks containing alcohol do you have on a typical day when you are drinking?: 1 or 2 (0) 3. How often do you have six or more drinks on one occasion?: Never Total Score: 0 RAIN-7 AMB Questionnaire RAIN-7 Date RAIN - 7 assessed: 06/27/22 Source: Developed by Drs. Brooks Palacios, Aurora Shields, Chris Foster and colleagues, with an educational lolly from [email or web address]. Review of Systems Const Denies headache(s) Eyes Denies loss of vision ENT Denies vertigo, Denies dizziness, Denies headache(s) and Denies sore throat Card Denies chest pain, Denies leg edema and Denies lightheadedness Resp Denies cough, Denies hemoptysis and Denies wheezing GI Denies abdominal pain, Denies melena, Denies constipation, Denies diarrhea and Denies vomiting Denies dysuria, Denies urinary frequency and Denies urinary urgency Musc Denies arthralgias, Denies joint swelling, Denies numbness and Denies tingling Neuro Denies Abnormal speech present, Denies behavioral changes, Denies vertigo, Denies dizziness, Denies headache(s), Denies loss of vision, Denies memory loss, Denies numbness and Denies tingling Psych Denies anxiety, Denies behavioral changes, Denies depression, Denies memory loss and Denies panic attacks Eamon/Lymph Denies easy bleeding and Denies easy bruising Aller/Immun Denies wheezing Physical exam (Primary Care) Vital Signs: Last Vital Signs Pulse 70 12/25/22 08:31 BP 118/68 12/25/22 08:31 Pulse Ox 97 12/25/22 08:31 Oxygen Delivery Method Room Air 12/25/22 08:31 BMI result Body Mass Index 28.1 Tobacco/Smoking Status: Tobacco use Status Tobacco use date assessed 06/27/22 12/25/22 08:34 Patient Tobacco Use Status Former Tobacco user 12/25/22 08:34 Tobacco use type Cigarette 12/25/22 08:34 e-Cigarette/Vaping Use Never Used 12/25/22 08:34 PHQ-9: PHQ-9 Score PHQ-9: Total score 0 12/25/22 08:41 Depression Screening Interpretation: Negative Thrive Assessment: Date of Thrive Assessment Date Thrive assessed 06/27/22 12/25/22 08:34 Const General: healthy appearing, no acute distress, alert and awake Nutritional Appearance: well nourished Orientation/consciousness: oriented to person, oriented to place and oriented to time HENMT Ears: TM's normal bilaterally General nose exam: Normal nasal mucous membranes and turbinates present Eyes Conjunctivae: conjunctivae normal Sclerae: sclerae normal Pupils: Equal, round and reactive pupils present Neck Neck: Yes no lymphadenopathy and Yes no JVD Thyroid: Thyroid normal Carotids: no bruits Resp Effort & Inspection: normal respiratory effort and not tachypneic Auscultation: no crackles, no rales, no rhonchi and no wheezes Cardio Rate: regular rate Rhythm: regular rhythm Heart sounds: no murmurs and normal S1 and S2 GI Palpation (GI): Soft to palpation, nontender, no hepatomegaly and no splenomegaly Auscultation: normal bowel sounds Skin General skin exam: no rashes or lesions noted and dry skin Neuro General: oriented to person, oriented to place and oriented to time Cranial nerves: Yes Equal, round and reactive pupils present Speech: No Abnormal speech present Gait exam (Neuro): Normal gait present Motor exam (neuro): no tremor noted Extrem Right upper extremity: full ROM Left upper extremity: full ROM Right lower extremity: full ROM; no edema Left lower extremity: full ROM; no edema Psych Mental Status: mental status grossly normal Speech and movement: Normal speech and movement present Affect: normal affect Attitude: cooperative Thought process: Normal thought process present Assessment and Plan Assessment & Plan (1) HLD (hyperlipidemia): Code(s): E78.5 - Hyperlipidemia, unspecified Qualifiers: Hyperlipidemia type: mixed hyperlipidemia Qualified Code(s): E78.2 - Mixed hyperlipidemia Plan: Has history hyperlipidemia. Was on statin therapy though has been taken off since bariatric surgery. Most recent LDL has been acceptable. Will continue to check fasting lipid panel. Goal LDL to remain below 130 (2) S/P laparoscopic sleeve gastrectomy: Comment: 07/04/21 Code(s): Z98.84 - Bariatric surgery status Plan: Patient doing very well after his is bariatric surgery continues to maintain weight loss. Going to the gym 5 days a week. He feels well and has a lot more energy. (3) DMII (diabetes mellitus, type 2): Code(s): E11.9 - Type 2 diabetes mellitus without complications Qualifiers: Diabetes mellitus complication status: without complication Diabetes mellitus intermediate insulin use: without intermediate use Qualified Code(s): E11.9 - Type 2 diabetes mellitus without complications Plan: Has resolved since bariatric surgery. Now his type 2 diabetes lifestyle / diet managed. Goal A1c is to remain below 6.5 (4) HTN (hypertension): Code(s): I10 - Essential (primary) hypertension Qualifiers: Hypertension type: primary hypertension Qualified Code(s): I10 - Essential (primary) hypertension Plan: Patient's blood pressure acceptable today in office. Now lifestyle and diet managed. Goal blood pressures to remain below 140/90 Orders: Orders Hemoglobin A1c Today E11.9 - Type 2 diabetes mellitus without complications Comprehensive [place]. Panel Fast Today E11.9 - Type 2 diabetes mellitus without complications Lipid Panel Today E11.9 - Type 2 diabetes mellitus without complications Complete Blood Count no Diff Today Z98.84 - Bariatric surgery status Coding Level of Care Code Est Pt Level 4 (08157) Diagnoses Mixed hyperlipidemia E78.2 Hyperlipidemia type: mixed hyperlipidemia S/P laparoscopic sleeve gastrectomy Z98.84 Type 2 diabetes mellitus without complication, without long-term current use of insulin E11.9 Diabetes mellitus complication status: without complication Diabetes mellitus intermediate school teacher insulin use: without intermediate school teacher use Primary hypertension I10 Hypertension type: primary hypertension
== END 2022-12-25 08:50 | disposition home or self-care (01) ==
PROVIDERS: Visit Provider Physician Assistant
DX: E78.2 Mixed hyperlipidemia (principal); Z98.84 Bariatric surgery status; E11.9 Type 2 diabetes mellitus without complications; I10 Essential (primary) hypertension
CPT/HCPCS: 99214

== ENCOUNTER 2023-01-04 05:57 | Outpatient (REF) | payer MEDICARE, SELFPAY ==
[2023-01-04 07:08] LABS: Hematocrit 50.1 % (42.0-52.0); Hemoglobin 15.9 g/dl (14.0-18.0); Mean Corpuscular HGB Conc 31.7 g/dl (31.0-36.0); Mean Corpuscular Hemoglobin 27.5 pg (27.0-33.0); Mean Corpuscular Volume 86.5 fL (80.0-98.0); Mean Platelet Volume 10.6 fL (9.4-12.4); Platelet Count 189 X10*3/uL (160-400); Red Blood Count 5.79 X10*6/uL (4.60-5.80); Red Cell Distribution Width 15.8 % (11.0-16.0)
[2023-01-04 07:26] LABS: Alanine Aminotransferase 50 U/L (0-40); Albumin Level 4.3 g/dL (3.5-5.0); Alkaline Phosphatase 80 U/L (39-117); Anion Gap 16 (12-20); Aspartate Amino Transferase 26 U/L (5-37); Bilirubin Total 0.9 mg/dL (0.0-1.0); Blood Urea Nitrogen 13 mg/dL (9-16); Calcium 10.6 mg/dL (8.4-10.2); Carbon Dioxide 29 mmol/L (22-29); Chloride 102 mmol/L (96-108); Cholesterol 213 mg/dL (<200); Estimated Glomerular Filt Rate > 60; Glucose Fasting 98 mg/dL (60-99); HDL Cholesterol 56 mg/dL (>40); LDL Cholesterol Calculated 138 mg/dL (<100); Potassium 4.5 mmol/L (3.3-5.1); Sodium 142 mmol/L (135-145); Total Protein 7.3 g/dL (6.5-8.0); Triglycerides 99 mg/dL (<150)
[2023-01-04 07:39] LABS: Estimated Average Glucose 108 mg/dL; Hemoglobin A1c % 5.4 % (<6.0)
== END 2023-01-04 05:58 | disposition home or self-care (01) ==
LOC: HO.LAB 05:57
PROVIDERS: PCP Physician Assistant; Visit Provider Physician Assistant
DX: E11.9 Type 2 diabetes mellitus without complications (principal); Z98.84 Bariatric surgery status
CPT/HCPCS: 36415; 80053; 80061; 83036; 85027

== ENCOUNTER 2023-01-15 08:10 | Outpatient (AMB) | payer MEDICARE, SELFPAY ==
--- NOTE | 2023-01-15 08:20 | A.OFFVIS_ITS ---
Intake VS Expanded 01/15/23 08:29 BP 145/74 H Blood Pressure Location Rt brachial Blood Pressure Position Sitting Pulse 67 Pulse Source Pulse Oximeter Temp 97.1 F Temperature Source Tympanic Pulse Oximetry 98 Oxygen Delivery Method Room Air Height 6 ft 5 in Weight 231 lb 6.4 oz BMI 27.4 Body Fat % 29.8 Body Fat Mass 69.0 Fat Free Mass 162.2 Visceral Fat Rating 16.0 Body Water % 45.2 Body Water Mass 104.4 Muscle Mass/Score 154.4 Basal Metabolic Rate/Score 2,173 Intake Visit Reasons: (OV) s/p Panniculectomy 08/09/22 Concrete Pipe Machine Operator Required: No Allergies No Known Allergies [No Known Allergies*] Allergy (Verified 01/15/23 08:26) Medication List - Last Reconciled 01/15/23 by BIJAL Weeks No Known Home Meds HPI HPI Comments History of Present Illness Details The patient is a pleasant 68-year-old male who returns to the office today in follow-up for his panniculectomy performed on 08/09/2022. He additionally has a history of sleeve gastrectomy performed on 07/04/2021. Overall he is doing excellent, he reports going to the gym 5 days a week and says that he feels better than he has in at least 30 years. He does have a known history of gallstones and reports intermittent right upper quadrant abdominal pain. He is requesting follow-up with a surgeon to discuss elective cholecystectomy, possibly after the beginning of the new year as he is very happy to be back at the gym. He offers no other complaints at today's visit. [facility] Medical History Hx of panniculitis Postgastrectomy malabsorption Diastolic dysfunction Steatosis, liver BMI 33.0-33.9,adult Lumbar disc disease Arthritis Elevated cholesterol Vitamin D deficiency Migraines DJD (degenerative joint disease) Obesity (BMI 30.0-34.9) Tendinopathy of left shoulder Colon cancer screening Surgical History S/P laparoscopic sleeve gastrectomy History of repair of hiatal hernia Hx of tooth extraction H/O colonoscopy Hx of arthroscopic knee surgery Rupture of right patellar tendon Hernia Family History Father Diabetes Heart problem Mother Breast cancer Diverticulitis Social History Housing: House Are you a primary day care worker to a significant other at home: No Do you presently have visiting nurse or other home services: No Alcohol intake: current Alcohol intake frequency: does not drink Patient Tobacco Use Status: Former Tobacco user Quit Date: ~age 26 Tobacco use type: Cigarette Years Smoked: 10 e-Cigarette/Vaping Use: Never Used Advance Directives Date on File: 07/04/21 service: No Current occupational status: retired Cognitive needs: No Hearing needs: No Vision needs: Yes Physical Exam Vital Signs: Last Vital Signs Temp 97.1 F 01/15/23 08:29 Pulse 67 01/15/23 08:29 BP 145/74 H 01/15/23 08:29 Pulse Ox 98 01/15/23 08:29 Oxygen Delivery Method Room Air 01/15/23 08:29 BMI result Body Mass Index 27.4 GI Inspection: Yes incision (Well-healed) Assessment & Plan Assessment & Plan (1) S/P panniculectomy: Code(s): Z98.890 - Other specified postprocedural states Plan: No current restrictions. Regarding his sleeve gastrectomy performed 07/04/21, will continue to follow and schedule follow-up after his appointment with Dr. Shannon. (2) Cholelithiases: Code(s): K80.20 - Calculus of gallbladder without cholecystitis without obstruction Plan: Known cholelithiasis from preoperative ultrasound, 04/06/2022. Will refer to Dr. Shannon to discuss elective laparoscopic cholecystectomy. Coding Level of Care Code Est Pt Level 3 (44649) Diagnoses S/P panniculectomy Z98.890 Cholelithiases K80.20
[2023-01-15 08:29] VITALS: BP 145/74; PULSE 67; TEMP 36.2; O2SAT 98; BMI 27.4
== END 2023-01-15 08:53 | disposition home or self-care (01) ==
PROVIDERS: PCP Physician Assistant; Visit Provider Physician Assistant Surgical
DX: K80.20 Calculus of gallbladder without cholecystitis without obstruction (principal); Z90.3 Acquired absence of stomach [part of]; Z98.84 Bariatric surgery status
CPT/HCPCS: 99213

== ENCOUNTER → 2023-01-15 08:10 | Outpatient (BNVA) | payer MEDICARE, SELFPAY | PROVIDERS: PCP Physician Assistant; Visit Provider Physician Assistant Surgical | DX: K80.20 Calculus of gallbladder without cholecystitis without obstruction (principal); Z98.890 Other specified postprocedural states | CPT/HCPCS: 99212 ==

== ENCOUNTER 2023-02-26 08:03 | Outpatient (REF) | payer MEDICARE, SELFPAY ==
[2023-02-26 09:37] LABS: Basophils Absolute Auto 0.1 X10*3/uL (0.0-0.2); Basophils Percent Auto 0.3 % (0-2); Eosinophils Absolute Auto 0.1 X10*3/uL (0.0-0.4); Eosinophils Percent Auto 0.6 % (0-4); Hematocrit 48.2 % (42.0-52.0); Hemoglobin 16.1 g/dl (14.0-18.0); Imm Gran Abs Auto 0.08 X10*3/uL (0.00-0.03); Imm Gran Pct Auto 0.4 % (0.0-0.4); Lymphocytes Absolute Auto 1.8 X10*3/uL (1.2-4.9); Lymphocytes Percent Auto 9.9 % (20-40); MANUAL DIFF FLAG SCAN; Mean Corpuscular HGB Conc 33.4 g/dl (31.0-36.0); Mean Corpuscular Hemoglobin 29.1 pg (27.0-33.0); Mean Corpuscular Volume 87.2 fL (80.0-98.0); Neutrophils Absolute Auto 14.1 x10*3/uL (2.0-8.3); Neutrophils Percent Auto 77.8 % (45-73); Platelet Count 182 X10*3/uL (160-400); Red Blood Count 5.53 X10*6/uL (4.60-5.80); Red Cell Distribution Width 14.1 % (11.0-16.0); SCAN SMEAR FLAG 1; White Blood Count 18.1 X10*3/uL (4.8-10.8)
[2023-02-26 09:47] LABS: Estimated Average Glucose 111 mg/dL; Hemoglobin A1c % 5.5 % (<6.0)
[2023-02-26 10:03] LABS: SLIDE REVIEW VERIFIED
[2023-02-26 10:21] LABS: Alanine Aminotransferase 249 U/L (0-40); Albumin Level 3.9 g/dL (3.5-5.0); Alkaline Phosphatase 93 U/L (39-117); Amylase 74 U/L (28-100); Anion Gap 13 (12-20); Aspartate Amino Transferase 37 U/L (5-37); Blood Urea Nitrogen 10 mg/dL (9-16); C Reactive Protein 19.89 mg/dL (< or = 0.50); Calcium 9.9 mg/dL (8.4-10.2); Carbon Dioxide 28 mmol/L (22-29); Chloride 102 mmol/L (96-108); Cholesterol 162 mg/dL (<200); Estimated Glomerular Filt Rate > 60; Glucose Random 147 mg/dL (60-115); HDL Cholesterol 47 mg/dL (>40); Iron 18 mcg/dL (45-160); LDL Cholesterol Calculated 100 mg/dL (<100); Percent Iron Saturation 8 % (15-50); Potassium 4.2 mmol/L (3.3-5.1); Sodium 139 mmol/L (135-145); Total Iron Binding Capacity 214 mcg/dL (228-428); Triglycerides 76 mg/dL (<150); Unsaturated Iron Binding 196 ug/dL
[2023-02-26 10:40] LABS: Ferritin 316 ng/mL (20-250); TSH reflex Free T4 0.57 uIU/mL (0.32-4.0); Vitamin D 25-OH Total 62.3 ng/mL (>30)
[2023-02-26 10:44] LABS: Folate 12.8 ng/mL (> or = 4.0); Vitamin B12 1081 pg/mL (200-900)
[2023-03-01 05:55] LABS: Zinc 50 mcg/dL (60-130)
[2023-03-01 16:54] LABS: Vitamin B1 10 nmol/L (8-30)
[2023-03-02 17:19] LABS: Vitamin A 17 mcg/dL (38-98)
== END 2023-02-26 08:04 | disposition home or self-care (01) ==
LOC: HO.LAB 08:03
PROVIDERS: PCP Physician Assistant; Visit Provider Surgery
DX: Z98.84 Bariatric surgery status (principal); Z98.890 Other specified postprocedural states; Z87.19 Personal history of other diseases of the digestive system; K76.0 Fatty (change of) liver, not elsewhere classified; I10 Essential (primary) hypertension; E78.5 Hyperlipidemia, unspecified; E11.9 Type 2 diabetes mellitus without complications
CPT/HCPCS: 36415; 80053; 80061; 82150; 82306; 82607; 82728; 82746; 83036; 83540; 84425; 84443; 84590; 84630; 85025; 86140; 99212

== ENCOUNTER 2023-02-26 08:03 | Outpatient (AMB) | payer MEDICARE, SELFPAY ==
--- NOTE | 2023-02-26 08:05 | A.OFFVIS_ITS ---
Intake VS Expanded 02/26/23 08:10 BP 140/76 H Blood Pressure Location Rt brachial Blood Pressure Position Sitting Pulse 76 Pulse Source Pulse Oximeter Temp 96.3 F L Temperature Source Tympanic Pulse Oximetry 100 Oxygen Delivery Method Room Air Height 6 ft 5 in Weight 231 lb 9.6 oz BMI 27.5 Body Fat % 31.3 Body Fat Mass 72.6 Fat Free Mass 159.0 Visceral Fat Rating 17.0 Body Water % 43.7 Body Water Mass 101.2 Muscle Mass/Score 151.0 Basal Metabolic Rate/Score 2,133 Intake Visit Reasons: (OV) s/p Panniculectomy 08/09/22 Allergies No Known Allergies [No Known Allergies*] Allergy (Verified 02/26/23 08:10) HPI HPI Comments History of Present Illness Details The patient is a pleasant 68-year-old male who returns to the office today in follow-up for his panniculectomy performed on 08/09/2022. He additionally has a history of sleeve gastrectomy performed on 07/04/2021 with HHR. He is seen for follow-up after panniculectomy earlier this year which was complicated by a seroma. However, today he disclose that he has been having epigastric and right upper quadrant pain since Saturday while he was traveling through [place] & did not wish to stop. He does have a known history of cholelithiasis diagnosed by right upper quadrant ultrasound as part of his preoperative workup in 2021, and notes that the pain is worsening but he did not wish to go to the emergency room. He is hydrating and is willing to go for nonfasting labs to assess his symptoms. He otherwise denies changes to his medications or health problems. The patient notes that his urine is somewhat darker than usual but more yellow than cola colored/Tea colored and he is unclear as to whether not he is seen blood. [facility] Medical History (Reviewed 02/26/23 @ 08:31 by Riley Shannon MD, FACS, [facility]) Hx of panniculitis Postgastrectomy malabsorption Diastolic dysfunction Steatosis, liver BMI 33.0-33.9,adult Lumbar disc disease Arthritis Elevated cholesterol Vitamin D deficiency Migraines DJD (degenerative joint disease) Obesity (BMI 30.0-34.9) Tendinopathy of left shoulder Colon cancer screening Surgical History (Reviewed 02/26/23 @ 08:31 by Riley Shannon MD, [facility], [facility]) S/P laparoscopic sleeve gastrectomy History of repair of hiatal hernia Hx of tooth extraction H/O colonoscopy Hx of arthroscopic knee surgery Rupture of right patellar tendon Hernia Family History (Reviewed 02/26/23 @ 08:31 by Riley Shannon MD, [facility], [facility]) Father Diabetes Heart problem Mother Breast cancer Diverticulitis Social History (Reviewed 02/26/23 @ 08:31 by Riley Shannon MD, [facility], [facility]) Housing: House Are you a primary laboratory animal care veterinarian to a significant other at home: No Do you presently have visiting nurse or other home services: No Alcohol intake: current Alcohol intake frequency: does not drink Patient Tobacco Use Status: Former Tobacco user Quit Date: ~age 26 Tobacco use type: Cigarette Years Smoked: 10 e-Cigarette/Vaping Use: Never Used Advance Directives Date on File: 07/04/21 service: No Current occupational status: retired Cognitive needs: No Hearing needs: No Vision needs: Yes Review of Systems Const All systems reviewed & are unremarkable except as noted in HPI and below Reports as per HPI Physical Exam Vital Signs: BMI result Body Mass Index 27.5 On exam he is nontoxic but appears uncomfortable He is anicteric He is having no respiratory distress Abdomen is overweight and there is right upper quadrant and epigastric discomfort but no peritoneal sign. His abdomen is not rigid and no hernias are appreciated. His panniculectomy is doing well without evidence of residual or new seroma Results Reviewed Results Reviewed: I have ordered stat CBCT, CMP, amylase, urinalysis and hemoglobin A1c all non fast due to concerns about acute calculous cholecystitis or other surgical pathology. Assessment & Plan Assessment & Plan (1) Cholelithiases: Code(s): K80.20 - Calculus of gallbladder without cholecystitis without obstruction (2) DMII (diabetes mellitus, type 2): Code(s): E11.9 - Type 2 diabetes mellitus without complications Qualifiers: Diabetes mellitus penitentiary insulin use: without local company intermodal truck driver use Diabetes mellitus complication status: without complication Qualified Code(s): E11.9 - Type 2 diabetes mellitus without complications (3) HLD (hyperlipidemia): Code(s): E78.5 - Hyperlipidemia, unspecified Qualifiers: Hyperlipidemia type: mixed hyperlipidemia Qualified Code(s): E78.2 - Mixed hyperlipidemia (4) HTN (hypertension): Code(s): I10 - Essential (primary) hypertension Qualifiers: Hypertension type: primary hypertension Qualified Code(s): I10 - Essential (primary) hypertension (5) Overweight (BMI 25.0-29.9): Code(s): E66.3 - Overweight (6) History of repair of hiatal hernia: Comment: 07/04/21 Code(s): Z98.890 - Other specified postprocedural states; Z87.19 - Personal history of other diseases of the digestive system (7) Postgastrectomy malabsorption: Code(s): K91.2 - Postsurgical malabsorption, not elsewhere classified; Z90.3 - Acquired absence of stomach [part of] (8) Abdominal pain: Code(s): R10.9 - Unspecified abdominal pain Plan A concern about possible acute calculous cholecystitis or other surgical pathology such as peptic ulcer disease or pancreatitis or choledocholithiasis or renal problems was discussed with the patient. He noted that he had a very important work related issue to address today and declined going to the emergency room initially but was in agreement to go for stat labs which were ordered. Shortly after the patient went to the lab, his called the office to advise us that she is taking him to the emergency department. I have contacted the triage nurse and will follow the patient as additional information is obtained. Orders: Orders Amylase Today E11.9 - Type 2 diabetes mellitus without complications, E66.3 - Overweight, E78.5 - Hyperlipidemia, unspecified, I10 - Essential (primary) hypertension, K80.20 - Calculus of gallbladder without cholecystitis without obstruction, K91.2 - Postsurgical malabsorption, not elsewhere classified, R10.9 - Unspecified abdominal pain, Z87.19 - Personal history of other diseases of the digestive system, Z90.3 - Acquired absence of stomach [part of], Z98.890 - Other specified postprocedural states Lipid Panel Today E11.9 - Type 2 diabetes mellitus without complications, E78.5 - Hyperlipidemia, unspecified, I10 - Essential (primary) hypertension, K76.0 - Fatty (change of) liver, not elsewhere classified, Z87.19 - Personal history of other diseases of the digestive system, Z98.84 - Bariatric surgery status, Z98.890 - Other specified postprocedural states IRON PROFILE Today E11.9 - Type 2 diabetes mellitus without complications, E78.5 - Hyperlipidemia, unspecified, I10 - Essential (primary) hypertension, K76.0 - Fatty (change of) liver, not elsewhere classified, Z87.19 - Personal history of other diseases of the digestive system, Z98.84 - Bariatric surgery status, Z98.890 - Other specified postprocedural states Vitamin B12 and Folate Today E11.9 - Type 2 diabetes mellitus without complications, E78.5 - Hyperlipidemia, unspecified, I10 - Essential (primary) hypertension, K76.0 - Fatty (change of) liver, not elsewhere classified, Z87.19 - Personal history of other diseases of the digestive system, Z98.84 - Bariatric surgery status, Z98.890 - Other specified postprocedural states Zinc Today E11.9 - Type 2 diabetes mellitus without complications, E78.5 - Hyperlipidemia, unspecified, I10 - Essential (primary) hypertension, K76.0 - Fatty (change of) liver, not elsewhere classified, Z87.19 - Personal history of other diseases of the digestive system, Z98.84 - Bariatric surgery status, Z98.890 - Other specified postprocedural states C Reactive Protein Today E11.9 - Type 2 diabetes mellitus without complications, E78.5 - Hyperlipidemia, unspecified, I10 - Essential (primary) hypertension, K76.0 - Fatty (change of) liver, not elsewhere classified, Z87.19 - Personal history of other diseases of the digestive system, Z98.84 - Bariatric surgery status, Z98.890 - Other specified postprocedural states Vitamin B1 Today E11.9 - Type 2 diabetes mellitus without complications, E78.5 - Hyperlipidemia, unspecified, I10 - Essential (primary) hypertension, K76.0 - Fatty (change of) liver, not elsewhere classified, Z87.19 - Personal history of other diseases of the digestive system, Z98.84 - Bariatric surgery status, Z98.890 - Other specified postprocedural states Vitamin A Today E11.9 - Type 2 diabetes mellitus without complications, E78.5 - Hyperlipidemia, unspecified, I10 - Essential (primary) hypertension, K76.0 - Fatty (change of) liver, not elsewhere classified, Z87.19 - Personal history of other diseases of the digestive system, Z98.84 - Bariatric surgery status, Z98.890 - Other specified postprocedural states TSH reflex Free T4 Today E11.9 - Type 2 diabetes mellitus without complications, E78.5 - Hyperlipidemia, unspecified, I10 - Essential (primary) hypertension, K76.0 - Fatty (change of) liver, not elsewhere classified, Z87.19 - Personal history of other diseases of the digestive system, Z98.84 - Bariatric surgery status, Z98.890 - Other specified postprocedural states Ferritin Today E11.9 - Type 2 diabetes mellitus without complications, E78.5 - Hyperlipidemia, unspecified, I10 - Essential (primary) hypertension, K76.0 - Fatty (change of) liver, not elsewhere classified, Z87.19 - Personal history of other diseases of the digestive system, Z98.84 - Bariatric surgery status, Z98.890 - Other specified postprocedural states Vitamin D 25-OH Total Today E11.9 - Type 2 diabetes mellitus without complications, E78.5 - Hyperlipidemia, unspecified, I10 - Essential (primary) hypertension, K76.0 - Fatty (change of) liver, not elsewhere classified, Z87.19 - Personal history of other diseases of the digestive system, Z98.84 - Bariatric surgery status, Z98.890 - Other specified postprocedural states Comprehensive Met. Panel Today E11.9 - Type 2 diabetes mellitus without complications, E66.3 - Overweight, E78.5 - Hyperlipidemia, unspecified, I10 - Essential (primary) hypertension, K80.20 - Calculus of gallbladder without cholecystitis without obstruction, K91.2 - Postsurgical malabsorption, not elsewhere classified, R10.9 - Unspecified abdominal pain, Z87.19 - Personal history of other diseases of the digestive system, Z90.3 - Acquired absence of stomach [part of], Z98.890 - Other specified postprocedural states UA and rflx microscopic Today E11.9 - Type 2 diabetes mellitus without complications, E66.3 - Overweight, E78.5 - Hyperlipidemia, unspecified, I10 - Essential (primary) hypertension, K80.20 - Calculus of gallbladder without cholecystitis without obstruction, K91.2 - Postsurgical malabsorption, not elsewhere classified, R10.9 - Unspecified abdominal pain, Z87.19 - Personal history of other diseases of the digestive system, Z90.3 - Acquired absence of stomach [part of], Z98.890 - Other specified postprocedural states Complete Blood Count Auto Diff Today E11.9 - Type 2 diabetes mellitus without complications, E66.3 - Overweight, E78.5 - Hyperlipidemia, unspecified, I10 - Essential (primary) hypertension, K80.20 - Calculus of gallbladder without cholecystitis without obstruction, K91.2 - Postsurgical malabsorption, not elsewhere classified, R10.9 - Unspecified abdominal pain, Z87.19 - Personal history of other diseases of the digestive system, Z90.3 - Acquired absence of stomach [part of], Z98.890 - Other specified postprocedural states Hemoglobin A1c Today E11.9 - Type 2 diabetes mellitus without complications, E66.3 - Overweight, E78.5 - Hyperlipidemia, unspecified, I10 - Essential (primary) hypertension, K80.20 - Calculus of gallbladder without cholecystitis without obstruction, R10.9 - Unspecified abdominal pain Coding Level of Care Code Est Pt Level 4 (13248) Diagnoses Cholelithiases K80.20 Type 2 diabetes mellitus without complication, without long-term current use of insulin E11.9 Diabetes mellitus penitentiary insulin use: without local company intermodal truck driver use Diabetes mellitus complication status: without complication Mixed hyperlipidemia E78.2 Hyperlipidemia type: mixed hyperlipidemia Primary hypertension I10 Hypertension type: primary hypertension Overweight (BMI 25.0-29.9) E66.3 History of repair of hiatal hernia Z98.890; Z87.19 Postgastrectomy malabsorption K91.2; Z90.3 Abdominal pain R10.9
[2023-02-26 08:10] VITALS: BP 140/76; PULSE 76; TEMP 35.7; O2SAT 100; BMI 27.5
== END 2023-02-26 08:25 | disposition home or self-care (01) ==
PROVIDERS: PCP Physician Assistant; Visit Provider Surgery
DX: K80.20 Calculus of gallbladder without cholecystitis without obstruction (principal); E11.9 Type 2 diabetes mellitus without complications; E78.2 Mixed hyperlipidemia; I10 Essential (primary) hypertension; E66.3 Overweight; Z98.890 Other specified postprocedural states; Z87.19 Personal history of other diseases of the digestive system; K91.2 Postsurgical malabsorption, not elsewhere classified; Z90.3 Acquired absence of stomach [part of]; R10.9 Unspecified abdominal pain
CPT/HCPCS: 99214

== ENCOUNTER 2023-02-26 10:12 | Inpatient (IN) | payer MEDICARE, SELFPAY ==
--- NOTE | ~2023-02-26 | MR_ITS ---
EXAMINATION: MR ABDOMEN WITHOUT CONTRAST CLINICAL INFORMATION: Pancreatitis COMPARISON: Previous ultrasound and CT of the abdomen and pelvis from earlier this TECHNIQUE: MR abdomen is performed without gadolinium contrast. MRCP sequences were also performed. FINDINGS: LUNG BASES: The visualized lung bases are unremarkable. LIVER, GALLBLADDER, AND BILIARY TREE: The liver is normal in size, smooth in contour, and normal in signal. There is a small low signal on high signal T2 weighted sequences 5 mm lesion high in the right lobe of the liver is difficult to characterize without IV contrast. No other focal liver lesion. The gallbladder is normal in size. There are gallstones sludge in the gallbladder. Gallbladder wall does not appear thickened. There is no pericholecystic fluid. Intrahepatic and extrahepatic bile ducts are normal in caliber. The common bile duct measures 5 mm. No common bile duct stone is seen. PANCREAS: Pancreas is normal in size. There is slight increased T2 signal in the pancreas. There is abnormal bright T2 signal seen surrounding the pancreas and small fluid collections suggestive of acute pancreatitis. The pancreatic duct is normal. SPLEEN: Unremarkable. ADRENAL GLANDS: Unremarkable. KIDNEYS AND URETERS: The kidneys are normal in size and shape. No hydronephrosis. No perinephric stranding. GASTROINTESTINAL TRACT: No bowel obstruction. No ascites or fluid collection. ABDOMINAL WALL: No significant hernia is appreciated. Postsurgical changes to the low anterior abdominal wall. Thick walled lobe anterior abdominal wall fluid collection measuring 3.5 x 5 x 8.5 cm in AP and longitudinal and transverse dimension LYMPH NODES: No lymphadenopathy. VASCULAR: Unremarkable. OSSEOUS STRUCTURES: Marrow signal normal. MR/MR MRCP IMPRESSION: Gallstones and sludge in the gallbladder. No biliary duct dilatation. No common bile duct filling defect/stone. Increased T2 signal in and surrounding the pancreas and small peripancreatic fluid collections suggestive of pancreatitis. 5 mm low-attenuation lesion in the right lobe difficult to characterize. Anterior abdominal wall fluid collection.
--- NOTE | ~2023-02-26 | CT_ITS ---
EXAMINATION: CT ABDOMEN AND PELVIS WITH CONTRAST CLINICAL INFORMATION: Abdominal pain, cholelithiasis, leukocytosis. Recent panniculectomy of the lower abdominal wall. COMPARISON: None available. TECHNIQUE: Multidetector volumetric images were obtained from the superior aspect of the liver through the pubic symphysis following administration 85 mL of Omnipaque 350 intravenous contrast. Sagittal and coronal reformatted images were obtained on the technologist's workstation. Oral contrast: No This CT examination was performed using dose optimization techniques as appropriate, variously including the following: *Automated exposure control *Adjustment of mA and/or kV according to patient size (this includes techniques or standardized protocols for targeted exams where dose is matched to indication/reason for exam; i.e. extremities or head) *Use of iterative reconstruction technique DLP: 737 mGy-cm FINDINGS: LUNG BASES: The visualized lung bases are unremarkable. LIVER, GALLBLADDER, AND BILIARY TREE: The liver is normal in size, shape, and attenuation. No focal hepatic lesion or biliary ductal dilatation is present. Multiple low-density calculi are evident within the gallbladder. There is a questionable intraluminal filling defect within the distal common bile duct, though not confirmed. No intrahepatic biliary ductal dilatation is evident. PANCREAS: There is considerable infiltration about the pancreatic head, neck and body, extending into the lesser sac. An air containing structure is evident along the medial aspect of the pancreatic head, presumably a duodenal or pancreatic ductal diverticulum. Infiltration is also evident about the uncinate process. No drainable collection is evident. There is no evidence of pancreatic necrosis. No pseudocyst or mass is evident. SPLEEN: Unremarkable. ADRENAL GLANDS: Unremarkable. KIDNEYS AND URETERS: The kidneys are normal in size, shape, and attenuation. No hydronephrosis, hydroureter, or calculi seen. No perinephric stranding. A retroaortic left renal vein is incidentally noted. BLADDER: Unremarkable. GASTROINTESTINAL TRACT: Bariatric changes are evident in the stomach likely related to gastric sleeve surgery.. There is considerable infiltration about the distal stomach adjacent to the pancreatic head. A small sliding hiatal hernia is present. The small and large bowel are otherwise unremarkable. The appendix is not visualized. ABDOMINAL WALL: There is infiltration of the lower anterior abdominal wall, probably postsurgical, including a 9 x 3 cm fluid collection in the lower anterior abdominal wall. Suggest correlation with medical history. LYMPH NODES: Normal. VASCULAR: Unremarkable. PELVIC VISCERA: Unremarkable. OSSEOUS STRUCTURES: Unremarkable. CT/CT abdomen pelvis w IV con IMPRESSION: 1. Cholelithiasis, with a questionable filling defect in the distal common bile duct raising concern of choledocholithiasis. MRCP or ERCP might be of benefit in better evaluating the biliary duct structures given the presence of lucent calculi in the gallbladder. 2. Considerable infiltration and fluid about the pancreas, within the lesser sac, and adjacent to the post operative stomach. Findings are most suggestive of pancreatitis, though gastritis or peptic ulcer disease could have a similar appearance. No pancreatic pseudocyst or necrosis is detected. Given the presence of gallstones, gallstone pancreatitis should be considered. 3. Infiltration and poorly defined fluid collection in the lower anterior abdominal-pelvic wall, consistent with recent surgery. Infection of the collection would be difficult to exclude. Suggest correlation with clinical history, physical findings, and if there is clinical concern of lower abdominal wall infection, the fluid could be aspirated. Findings discussed with BIJAL Cardenas at the time of interpretation on 02/26/2023 at 2:25 PM Fleischner guidelines were followed.
--- NOTE | ~2023-02-26 | US_ITS ---
EXAMINATION: US ABDOMEN LIMITED CLINICAL INFORMATION: Abnormal liver function tests, cholelithiasis. COMPARISON: CT of 02/26/2023 and abdomen of 09/28/2022 TECHNIQUE: Real-time imaging of the right upper quadrant abdominal viscera. FINDINGS: PANCREAS: Not visualized LIVER: Not assessed GALLBLADDER: Multiple shadowing calculi are evident within the gallbladder. Tenderness is present upon sonic compression in the right upper quadrant. The gallbladder wall measures 0.3 cm. No pericholecystic edema is evident. COMMON BILE DUCT: Normal in caliber measuring 0.5 cm in diameter. The distal duct is obscured. RIGHT KIDNEY: Not included. FREE FLUID: None visualized. US/US abdomen limited IMPRESSION: Cholelithiasis with a positive sonographic Isaac's sign, suggesting cholecystitis.
[2023-02-26 10:19] VITALS: BP 157/82; PULSE 77; RESP 16; TEMP 36.6; O2SAT 98; BMI 28.0
--- NOTE | 2023-02-26 10:50 | PM.HPGS ---
History of Present Illness History of Present Illness Date of Service: 02/26/23 Chief complaint: abdominal pain Narrative: Brooks Bower is a 68 year old male who was in the instructed to report to the emergency room from the office today; he presented in follow-up for his panniculectomy performed on 08/09/2022, in related progressive abdominal pain that started on Saturday while he was traveling. He additionally has a history of sleeve gastrectomy performed on 07/04/2021 with HHR. He does have a known history of cholelithiasis diagnosed by right upper quadrant ultrasound as part of his preoperative workup in 2021, and notes that the pain is worsening but he did not wish to go to the emergency room. He is hydrating and is willing to go for nonfasting labs to assess his symptoms. He otherwise denies changes to his medications or health problems. The patient notes that his urine is somewhat darker than usual but more yellow than cola colored/Tea colored and he is unclear as to whether not he is seen blood. Review of Systems Review of Systems: Yes all other systems are reviewed and are negative Constitutional: Constitutional: Reports as per [facility] Past Medical History Medical History Hx of panniculitis Postgastrectomy malabsorption Diastolic dysfunction Steatosis, liver BMI 33.0-33.9,adult Lumbar disc disease Arthritis Elevated cholesterol Vitamin D deficiency Migraines DJD (degenerative joint disease) Obesity (BMI 30.0-34.9) Tendinopathy of left shoulder Colon cancer screening Family History Family History Father Diabetes Heart problem Mother Breast cancer Diverticulitis Surgical History Surgical History S/P laparoscopic sleeve gastrectomy History of repair of hiatal hernia Hx of tooth extraction H/O colonoscopy Hx of arthroscopic knee surgery Rupture of right patellar tendon Hernia Social History Social History Housing: House Are you a primary critical care nurse specialist to a significant other at home: No Do you presently have visiting nurse or other home services: No Alcohol intake: current Alcohol intake frequency: does not drink Patient Tobacco Use Status: Former Tobacco user Quit Date: ~age 26 Tobacco use type: Cigarette Years Smoked: 10 e-Cigarette/Vaping Use: Never Used Advance Directives Date on File: 07/04/21 service: No Current occupational status: retired Cognitive needs: No Hearing needs: No Vision needs: Yes Meds Allergies Allergy/AdvReac Type Severity Reaction Status Date / Time No Known Allergies Allergy Verified 02/26/23 10:18 [No Known Allergies*] Home Medications Medication Instructions Recorded Confirmed Last Taken Type Celebrate Multivtiamin 1 cap PO DAILY 02/26/23 02/26/23 Unknown History Physical Exam Vital Signs: Vital Signs: Last Vital Signs Temp 97.8 F 02/26/23 10:19 Pulse 77 02/26/23 10:19 Resp 16 02/26/23 10:19 BP 157/82 H 02/26/23 10:19 Pulse Ox 98 02/26/23 10:19 O2 Del Method Room Air 02/26/23 10:19 BMI result Body Mass Index 28.0 On exam, the patient appeared uncomfortable but not acute and nontoxic He is having no respiratory difficulty He is anicteric His heart is regular; lungs are clear and equal anteriorly Abdomen is overweight and protrude burnt with epigastric and right upper quadrant discomfort with some early guarding but no peritoneal sign and no rigidity. No hernias are appreciated Patient is panniculectomy scar is well healed with no evidence of seroma or other incisional complications Results Results Labs: Stat labs were ordered when I evaluated the patient in the office White blood cell count is elevated at 18.1 with a left shift; hemoglobin 16.1, platelet count 182 K BUN 10, creatinine 0.75 Electrolytes are within normal parameters Total bilirubin out is elevated at 2.0, ALT elevated at 249 Alkaline phosphatase normal at 93, AST normal at the 37, amylase normal at 74 Hemoglobin A1c 5.5 CRP elevated at 19.89 Preoperative sleeve gastrectomy abdominal ultrasound 2021 demonstrated cholelithiasis, but the patient was asymptomatic at that time CT of the abdomen and pelvis with IV contrast is currently pending Abdomen CT scan report/results: image reviewed CT scan - pelvis: image reviewed Abdominal ultrasound report/results: report reviewed and image reviewed Additional studies: CBD measures 5 mm with no intrahepatic ductal dilation, no gallbladder wall thickening or pericholecystic fluid is noted but the patient was tender in the right upper quadrant with cholelithiasis again demonstrated My interpretation of the abdominal CT demonstrates a probable Phrygian cap with peripancreatic dirty fat but no obvious gallbladder wall thickening, edema or inflammation around the gallbladder. CT report by the radiologist confirmed peripancreatic infiltration consistent with pancreatitis suggestive of possible choledocholithiasis. In addition, a possible CBD defect is noted so an MRCP has been ordered. Lactic acid normal at 1.4 Assessment and Plan (1) Abdominal pain: Status: Acute (2) Cholelithiases: Status: Acute (3) Elevated LFTs: Status: Acute (4) S/P panniculectomy: Status: Acute (5) DMII (diabetes mellitus, type 2): Qualifiers: Diabetes mellitus complication status: without complication Diabetes mellitus long wall shear operator insulin use: without long wall shear operator use Qualified Code(s): E11.9 - Type 2 diabetes mellitus without complications Status: Acute (6) HLD (hyperlipidemia): Qualifiers: Hyperlipidemia type: mixed hyperlipidemia Qualified Code(s): E78.2 - Mixed hyperlipidemia Status: Acute (7) Hiatal hernia: Status: Acute (8) HTN (hypertension): Qualifiers: Hypertension type: primary hypertension Qualified Code(s): I10 - Essential (primary) hypertension Status: Acute (9) Overweight (BMI 25.0-29.9): Status: Acute (10) S/P laparoscopic sleeve gastrectomy: Status: Acute (11) History of repair of hiatal hernia: Status: Acute Plan NPO, IV fluid I have ordered a stat CT of the abdomen and pelvis with IV contrast to assess for an etiology. I briefly discussed cholecystectomy in the office with the patient given his symptoms and probable acute calculous cholecystitis. Will follow up as diagnostic information becomes available Please obtain a UA since the patient reports urinary symptoms Addendum, 1520 I suspect the patient most likely experienced transient choledocholithiasis/gallstone pancreatitis given the peripancreatic infiltration noted on CT and normal amylase and lipase. Will admit for pain management, antiemetics, bowel rest and hydration. CT does not show any evidence of acute calculous cholecystitis at this time, so his physical exam and labs will be trended. May need to consider evaluation of the pancreas for neoplasia, however in this setting, the more likely clinical presentation would be choledocholithiasis that has resolved. Patient requested his , Cinthya be advised on this. We spoke in person and her cell phone was provided which is [phone]. Plan was reviewed and discussed, questions answered. Quality Stroke Does the patient have a stroke diagnosis?: No VTE Prior VTE?: No VTE Risk Level:: Surgical - moderate VTE Device Contraindication: N/A - Device Ordered VTE Drug Contraindication: Treatment Not Indicated Procedures Date of Service Date of Service: 02/26/23
[2023-02-26 12:00] VITALS: BP 147/78; PULSE 80; RESP 16; TEMP 36.8; O2SAT 98
--- NOTE | 2023-02-26 12:00 | ED_ITS ---
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 Also reports concentrated, dark-colored urine. Denies known fever, chills, vomiting, diarrhea, dysuria MD elicited complaint: abdominal pain Related Data Home Medications Medication Instructions Recorded Confirmed Celebrate Multivtiamin 1 cap PO DAILY 02/26/23 02/26/23 Allergies Allergy/AdvReac Type Severity Reaction Status Date / Time No Known Allergies Allergy Verified 02/26/23 10:18 [No Known Allergies*] Review of Systems Review of Systems Constitutional: No Fever, No Chills, No Fatigue, No Malaise ENT/Mouth: No Ear Pain, No sore throat, No Rhinorrhea, No Swallowing Difficulty Eyes: No Eye Pain, No Swelling, No Redness, No Vision Changes Cardiovascular: No Chest Pain, No SOB, No Edema, No Palpitations Respiratory: No Cough, No Sputum, No Dyspnea Gastrointestinal: +Nausea, No Vomiting, No Diarrhea, + Constipation, + Abdominal pain Genitourinary: No irregular bleeding, No Dysuria, No Urinary Frequency, No Hematuria,No Flank Pain Musculoskeletal: No joint pain, No Myalgias, No Joint Swelling Skin: No Skin Lesions, No rash Neuro: No Weakness, No Headache Yes all other systems are reviewed and are negative Constitutional: Reports as per HPI [facility] Past Medical History Attestation statement: The following information was validated with the patient. Source: old records reviewed Medical History Hx of panniculitis Postgastrectomy malabsorption Diastolic dysfunction Steatosis, liver BMI 33.0-33.9,adult Lumbar disc disease Arthritis Elevated cholesterol Vitamin D deficiency Migraines DJD (degenerative joint disease) Obesity (BMI 30.0-34.9) Tendinopathy of left shoulder Colon cancer screening Surgical History S/P laparoscopic sleeve gastrectomy History of repair of hiatal hernia Hx of tooth extraction H/O colonoscopy Hx of arthroscopic knee surgery Rupture of right patellar tendon Hernia Family History Family History Father Diabetes Heart problem Mother Breast cancer Diverticulitis Social History Social History Housing: House Are you a primary rn intensive care unit to a significant other at home: No Do you presently have visiting nurse or other home services: No Alcohol intake: current Alcohol intake frequency: does not drink Patient Tobacco Use Status: Former Tobacco user Quit Date: ~age 26 Tobacco use type: Cigarette Years Smoked: 10 Smoked in Last 30 Days: No e-Cigarette/Vaping Use: Never Used Use of substances other than those prescribed or required for medical reasons: No Advance Directives: Yes Advance Directives on File: Yes Advance Directives Date on File: 07/04/21 service: No Current occupational status: retired Cognitive needs: No Hearing needs: No Vision needs: Yes Physical Exam ED Vital Signs: Vital Signs - 24 hr 02/26/23 10:19 02/26/23 12:00 02/26/23 13:34 Temperature 97.8 F 98.3 F Pulse Rate 77 80 Respiratory Rate 16 16 16 Blood Pressure 157/82 H 147/78 H Pulse Oximetry 98 98 Oxygen Delivery Method Room Air Room Air BMI result Body Mass Index 28.0 Const General: cooperative, healthy appearing and no acute distress Orientation/consciousness: patient oriented x3 Limitations: no limitations HENMT Head: Yes normal to inspection and Yes atraumatic Ears: hearing grossly normal bilaterally General nose exam: Normal external nose present Face and sinus: Yes normal facial exam Eyes General: appearance normal, both eyes and all related structures EOM: EOMs intact bilaterally Neck Neck: Yes normal visual inspection and Yes no meningeal signs Resp Effort & Inspection: normal respiratory effort and no respiratory distress Auscultation: clear to auscultation bilaterally Cardio Rate: regular rate Heart sounds: S1 normal heart sound present and S2 normal heart sound present GI Other: Old surgical scars Palpation (GI): Soft to palpation, Tenderness to palpation present (GI) in the epigastrum and in the RUQ; with no rebound tenderness, no guarding and not rigid General: Yes no CVA tenderness Back/Spine/Pelvis Back: no CVA tenderness Skin Rashes: no rashes Wounds: no wounds Neuro General: patient oriented x3, tone normal and no meningeal signs Cranial nerves: Yes CN's II-XII intact bilaterally Gait exam (Neuro): Normal gait present Extrem General: Yes normal to inspection Course Course Course Narrative: -leukocytosis of 18.1 > lactic/blood cultures and empiric IV Zosyn ordered. -Elevated T bili / ALT / CRP > general surgery, Dr. Shannon aware, would also like abd US > plan to admit to Surgical Service Medical Decision Making Medical Decision Making MDM Narrative: 68-year-old male with a past medical history gastric sleeve 06/2021, panniculectomy July complicated by seroma, migraines, arthritis, presenting to ED sent in from surgery Office APPLICATION SECURITY ARCHITECT for leukocytosis noted on outpatient labs, upper abdominal pain, nausea and constipation x3 days. On exam vital signs stable, NAD, abdomen soft with epigastric RUQ tenderness, no rebound or guarding. Concerns for cholecystitis/cholelithiasis vs pancreatitis vs PUD. lower suspicion for ACS/PE, renal stone/pyelo or dissection. Plan: Labs, CT, admission Please refer to course for remaining clinical decision making, interpretation of labs/imaging results, and discussions with consultants and/or family members. Differential Diagnosis Differential Diagnoses: The differential diagnosis associated with the presentation includes As above Admission/Observation Consideration of admission/observation: Escalation of care including admission/observation considered Consult Healthcare Provider Management of the patient was discussed with: Associate Web Developer (General surgery) Lab Data [facility] Lab Attestation statement: I reviewed the patient's lab results. Labs: Lab Results 02/26/23 02/26/23 Range/Units 09:05 12:35 Lactic Acid 1.4 (0.5-2.0) mmol/L Magnesium 2.3 (1.6-2.6) mg/dL Lipase 28 (8-78) U/L Independent Interpretation I performed an independent interpretation of an: Ultrasound and CT Scan Radiology Impression Discussion of test interpretation with radiology: I have reviewed the radiologist's reading. Independent Historian Clinical information obtained from an independent historian. History obtained from or confirmed by: Spouse External Record Review External record reviewed: Inpatient record, Office record, Outpatient record, Prior outpatient labs, Prior outpatient radiology, Primary care record and Outside ED record Tests considered The following testing was considered but not selected: As above Prescription Management I considered prescription management with: Pain Medication Chronic Conditions Patient?s care impacted by: Diabetes and Other Medications Administered Generic Name Dose Route Start Last Admin Trade Name Freq PRN Reason Stop Dose Admin Hydromorphone HCl 0.25 mg 02/26/23 13:40 02/26/23 14:09 Hydromorphone Hcl 0.5 Mg/0.5 Ml Syringe IVPUSH 0.25 mg Q2H PRN Administration Pain, Moderate(Pain Scale 4-6) Protocol Lactated Ringer's 1,000 mls @ 125 mls/hr 02/26/23 13:45 02/26/23 14:04 Lr IVCONT 100 mls/hr .Q8H JAYLON Administration Discontinued Medications Generic Name Dose Route Start Last Admin Trade Name Freq PRN Reason Stop Dose Admin Sodium Chloride 1,000 mls @ 999 mls/hr 02/26/23 12:15 02/26/23 13:35 Ns IV 02/26/23 13:15 Infused .Q1H1M JAYLON Infusion Piperacillin Sod/Tazobactam 50 mls @ 100 mls/hr 02/26/23 12:17 02/26/23 13:35 Sod 3.375 gm/ Sodium Chloride IV 02/26/23 12:46 Infused ONCE ONE Infusion Iohexol 100 ml 02/26/23 12:49 02/26/23 12:49 Iohexol 350 Mg/Ml 100 Ml Infus..Btl IV 02/26/23 12:50 85 ml ONCE ONE Administration Morphine Sulfate 2 mg 02/26/23 13:27 02/26/23 13:34 Morphine Sulfate 2 Mg/Ml Cartridge IVPUSH 02/26/23 13:28 2 mg ONCE ONE Administration Protocol Critical Care Time Critical Care Time Critical Care Time: Yes Total Critical Care Time: 40 Attestation: I have personally provided critical care time exclusive of time spent on separately billable procedures. Time includes review of lab data, radiology results, discussion with consultants, and monitoring for potential decompensation. Intervention performed as documented. Discharge Plan Discharge Clinical Impression: Abdominal pain Patient Disposition: Admitted As Inpatient
[2023-02-26 12:47] LABS: Lipase 28 U/L (8-78); Magnesium 2.3 mg/dL (1.6-2.6)
[2023-02-26] MEDS: iohexoL 350 MG/ML 100 ML INFUS..BTL IV (12:49)
[2023-02-26] MEDS: 0.9 % Sodium Chloride 1,000 ML 999 ML IV (12:51)
[2023-02-26] MEDS: Piperacillin Sodium/Tazobactam 3.375 GM in 0.9 % Sodium Chloride 50 ML IV ×2 (12:54→19:41)
[2023-02-26 12:57] LABS: Lactic Acid 1.4 mmol/L (0.5-2.0)
[2023-02-26 13:34] VITALS: RESP 16
[2023-02-26] MEDS: Morphine Sulfate 2 MG/ML CARTRIDGE IVPUSH (13:34)
[2023-02-26 13:50] VITALS: BP 149/83; PULSE 84; RESP 16; TEMP 37; O2SAT 99
[2023-02-26] MEDS: Lactated Ringers 1,000 ML 100 ML IVCONT ×2 (14:04→22:34)
[2023-02-26] MEDS: HYDROmorphone HCl 0.5 MG/0.5 ML SYRINGE 0.25 MG IVPUSH (14:09)
--- NOTE | 2023-02-26 14:12 | PHA.MEDREC ---
Pharmacy Consult ? Medication Reconciliation Pharmacy has completed the medication reconciliation. Patient reported only taking celebrate multivitamin for bariatric. Earlene Miller, PharmD
[2023-02-26 16:00] VITALS: BP 102/62; PULSE 89; RESP 16; TEMP 36.3; O2SAT 97
[2023-02-26] MEDS: HYDROmorphone HCl 0.5 MG/0.5 ML SYRINGE IVPUSH ×3 (17:12→22:34)
[2023-02-26 17:13] LABS: Appearance Urine Clear; Color Urine Yellow; Glucose Urine UA Negative (Negative); Leukocyte Esterase Urine Negative (Negative); Nitrite Urine Negative (Negative); Specific Gravity - Urine <= 1.005 (1.005-1.025); UMIC TRIGGER UACC YES; Urine Blood Negative (Negative); Urine Ketones 40 mg/dL (Negative); Urine Protein 30 (1+) mg/dL (Neg-Trace)
[2023-02-26 17:40] LABS: Bacteria Urine None Seen (None Seen); Hyaline Casts Urine 0-2 /LPF (0-2); RBC Urine 0-2 /HPF (0-2); Squamous Epithelial Cell Urine 0-2 /HPF (0-2); WBC Urine 0-5 /HPF (0-5)
[2023-02-26 18:37] VITALS: BP 123/73; PULSE 98; RESP 18; TEMP 36.3; O2SAT 96
--- NOTE | 2023-02-26 19:55 | PC.NURSE ---
this rn assumed care of pt @ 1900. pt medicated according to may, pt reports 11/01 pain pt medicated with prn Dilaudid ivp. pt provided with cup for dentures lights dimmed to promote rest
[2023-02-27] MEDS: HYDROmorphone HCl 0.5 MG/0.5 ML SYRINGE IVPUSH ×8 (02:20→23:41)
[2023-02-27] MEDS: Piperacillin Sodium/Tazobactam 3.375 GM in 0.9 % Sodium Chloride 50 ML IV ×4 (02:21→20:11)
[2023-02-27 02:23] VITALS: BP 127/67; PULSE 86; RESP 16; TEMP 36.9; O2SAT 95
[2023-02-27 05:52] LABS: Basophils Absolute Auto 0.1 X10*3/uL (0.0-0.2); Basophils Percent Auto 0.3 % (0-2); Eosinophils Absolute Auto 0.1 X10*3/uL (0.0-0.4); Eosinophils Percent Auto 0.5 % (0-4); Hematocrit 40.6 % (42.0-52.0); Hemoglobin 13.6 g/dl (14.0-18.0); Imm Gran Abs Auto 0.07 X10*3/uL (0.00-0.03); Imm Gran Pct Auto 0.5 % (0.0-0.4); Lymphocytes Absolute Auto 1.9 X10*3/uL (1.2-4.9); MANUAL DIFF FLAG SCAN; Mean Corpuscular HGB Conc 33.5 g/dl (31.0-36.0); Mean Corpuscular Hemoglobin 28.8 pg (27.0-33.0); Mean Platelet Volume 10.7 fL (9.4-12.4); Monocytes Absolute Auto 1.8 X10*3/uL (0.1-1.2); Monocytes Percent Auto 12.3 % (2-11); Neutrophils Absolute Auto 10.9 x10*3/uL (2.0-8.3); Neutrophils Percent Auto 73.4 % (45-73); Platelet Count 165 X10*3/uL (160-400); Red Blood Count 4.72 X10*6/uL (4.60-5.80); SCAN SMEAR FLAG 1; White Blood Count 14.9 X10*3/uL (4.8-10.8)
[2023-02-27 05:58] LABS: Amylase 44 U/L (28-100)
[2023-02-27] MEDS: Pantoprazole Sodium 40 MG/10 ML VIAL IVPUSH (06:03)
[2023-02-27 06:08] LABS: Alanine Aminotransferase 143 U/L (0-40); Albumin Level 3.4 g/dL (3.5-5.0); Alkaline Phosphatase 83 U/L (39-117); Anion Gap 12 (12-20); Aspartate Amino Transferase 19 U/L (5-37); Bilirubin Total 1.6 mg/dL (0.0-1.0); Blood Urea Nitrogen 10 mg/dL (9-16); Carbon Dioxide 26 mmol/L (22-29); Chloride 104 mmol/L (96-108); Creatinine Clr Calc Pharmacy 146.4; Estimated Glomerular Filt Rate > 60; Glucose Random 112 mg/dL (60-115); Sodium 138 mmol/L (135-145)
[2023-02-27 06:11] LABS: SLIDE REVIEW VERIFIED
--- NOTE | 2023-02-27 06:16 | PC.NURSE ---
pt medicated according to mar pain 11/01
[2023-02-27] MEDS: Lactated Ringers 1,000 ML 100 ML IVCONT (07:21)
[2023-02-27 07:23] VITALS: BP 143/76; PULSE 77; RESP 18; O2SAT 95
--- NOTE | 2023-02-27 07:30 | PC.NURSE ---
pt is alert and oriented, skin pwd, respirations even and unlabored, pt reports is pain is at 5/10 and some nausea, abd is soft but slightly tender, bowel sounds in all 4 quadrants and vs stable. pt is npo, pending a surgery but still no time for when the surgery is happening
--- NOTE | 2023-02-27 07:34 | PM.PNGS ---
Subjective Subjective Date of Service: 02/27/23 Patient reports: still having pain Interval history: Patient reports that he is having continued epigastric pain that is about the same as yesterday. He denies any chest pain, difficulty breathing shortness of breath. Pain is adequately managed with the current narcotic medications. He has no new complaints. Physical Exam Vital Signs: Vital Signs: Last Vital Signs Temp 98.4 F 02/27/23 02:23 Pulse 77 02/27/23 07:23 Resp 18 02/27/23 07:23 BP 143/76 H 02/27/23 07:23 Pulse Ox 95 02/27/23 07:23 O2 Del Method Room Air 02/27/23 07:23 BMI result Body Mass Index 28.0 On exam, the patient appears comfortable He is anicteric Neurologically he is intact He is having no respiratory distress Abdomen is overweight with continued epigastric pain with no peritoneal sign nor rigidity. Objective Data Active Medications Acetaminophen (Acetaminophen 325 Mg Tablet) 975 mg PO Q6H PRN PRN Reason: Pain, Mild (Pain Scale 1-3) Hydromorphone HCl (Hydromorphone Hcl 0.5 Mg/0.5 Ml Syringe) 0.5 mg IVPUSH Q2H PRN; Protocol PRN Reason: Pain, Moderate(Pain Scale 4-6) Last Admin: 02/27/23 06:03 Dose: 0.5 mg Documented By: OBIE Lactated Ringer's (Lr) 1,000 mls @ 125 mls/hr IVCONT .Q8H [facility] Last Admin: 02/27/23 07:21 Dose: 100 mls/hr Documented By: KWABENA Piperacillin Sod/Tazobactam (Sod 3.375 gm/ Sodium Chloride) 50 mls @ 100 mls/hr IV Q6H [facility] Ondansetron HCl (Ondansetron Hcl 4 Mg/2 Ml Vial) 4 mg IVPUSH Q6H PRN PRN Reason: Nausea and Vomiting Pantoprazole Sodium (Pantoprazole Sodium 40 Mg/10 Ml Vial) 40 mg IVPUSH DAILY@0630 [facility] Last Admin: 02/27/23 06:03 Dose: 40 mg Documented By: OBIE Labs 02/27/23 05:09 02/27/23 05:09 Labs: Laboratory Results - last 24 hr 02/26/23 02/26/23 02/26/23 09:05 12:35 17:04 MCV MCH MCHC RDW Plt Count MPV Immature Gran % (Auto) Neut % (Auto) Lymph % (Auto) [place] % (Auto) Eos % (Auto) Baso % (Auto) Lymph # (Auto) [place] # (Auto) Eos # (Auto) Baso # (Auto) Abs Immat Gran (auto) Absolute Neuts (auto) Absolute Nucleated RBC Nucleated RBC % (auto) Smear Tech's Comments Anion Gap Estim Creat Clear Calc Estimated GFR Random Glucose Lactic Acid 1.4 Calcium Magnesium 2.3 Total Bilirubin AST ALT Alkaline Phosphatase Total Protein Albumin Amylase Lipase 28 Urine Color Yellow Urine Appearance Clear Urine pH 7.0 Ur Specific [place] <= 1.005 Urine Protein 30 (1+) H Urine Glucose (UA) Negative Urine Ketones 40 Urine Blood Negative Urine Nitrite Negative Ur Leukocyte Esterase Negative Urine RBC 0-2 Urine WBC 0-5 Ur Squamous Epith Cells 0-2 Urine Bacteria None Seen Hyaline Casts 0-2 02/27/23 05:09 MCV 86.0 MCH 28.8 MCHC 33.5 RDW 14.0 Plt Count 165 MPV 10.7 Immature Gran % (Auto) 0.5 H Neut % (Auto) 73.4 H Lymph % (Auto) 13.0 L [place] % (Auto) 12.3 H Eos % (Auto) 0.5 Baso % (Auto) 0.3 Lymph # (Auto) 1.9 [place] # (Auto) 1.8 H Eos # (Auto) 0.1 Baso # (Auto) 0.1 Abs Immat Gran (auto) 0.07 H Absolute Neuts (auto) 10.9 H Absolute Nucleated RBC 0.000 Nucleated RBC % (auto) 0.0 Smear Tech's Comments VERIFIED Anion Gap 12 Estim Creat Clear Calc 146.4 Estimated GFR > 60 Random Glucose 112 Lactic Acid Calcium 9.0 D Magnesium Total Bilirubin 1.6 H AST 19 ALT 143 H Alkaline Phosphatase 83 Total Protein 6.0 L Albumin 3.4 L Amylase 44 Lipase Urine Color Urine Appearance Urine pH Ur Specific [place] Urine Protein Urine Glucose (UA) Urine Ketones Urine Blood Urine Nitrite Ur Leukocyte Esterase Urine RBC Urine WBC Ur Squamous Epith Cells Urine Bacteria Hyaline Casts Imaging MRI - abdomen: Radiologist's impression: Impressions Abdomen/Pelvis CT 02/26/23 12:59 IMPRESSION: 1. Cholelithiasis, with a questionable filling defect in the distal common bile duct raising concern of choledocholithiasis. MRCP or ERCP might be of benefit in better evaluating the biliary duct structures given the presence of lucent calculi in the gallbladder. 2. Considerable infiltration and fluid about the pancreas, within the lesser sac, and adjacent to the post operative stomach. Findings are most suggestive of pancreatitis, though gastritis or peptic ulcer disease could have a similar appearance. No pancreatic pseudocyst or necrosis is detected. Given the presence of gallstones, gallstone pancreatitis should be considered. 3. Infiltration and poorly defined fluid collection in the lower anterior abdominal-pelvic wall, consistent with recent surgery. Infection of the collection would be difficult to exclude. Suggest correlation with clinical history, physical findings, and if there is clinical concern of lower abdominal wall infection, the fluid could be aspirated. Findings discussed with BIJAL Cardenas at the time of interpretation on 02/26/2023 at 2:25 PM Fleischner guidelines were followed. Abdomen Ultrasound 02/26/23 14:00 IMPRESSION: Cholelithiasis with a positive sonographic Isaac's sign, suggesting cholecystitis. Cholangiopancreatography MRI 02/26/23 19:02 IMPRESSION: Gallstones and sludge in the gallbladder. No biliary duct dilatation. No common bile duct filling defect/stone. Increased T2 signal in and surrounding the pancreas and small peripancreatic fluid collections suggestive of pancreatitis. 5 mm low-attenuation lesion in the right lobe difficult to characterize. Anterior abdominal wall fluid collection. CT scan - abdomen: Radiologist's impression: Impressions Abdomen/Pelvis CT 02/26/23 12:59 IMPRESSION: 1. Cholelithiasis, with a questionable filling defect in the distal common bile duct raising concern of choledocholithiasis. MRCP or ERCP might be of benefit in better evaluating the biliary duct structures given the presence of lucent calculi in the gallbladder. 2. Considerable infiltration and fluid about the pancreas, within the lesser sac, and adjacent to the post operative stomach. Findings are most suggestive of pancreatitis, though gastritis or peptic ulcer disease could have a similar appearance. No pancreatic pseudocyst or necrosis is detected. Given the presence of gallstones, gallstone pancreatitis should be considered. 3. Infiltration and poorly defined fluid collection in the lower anterior abdominal-pelvic wall, consistent with recent surgery. Infection of the collection would be difficult to exclude. Suggest correlation with clinical history, physical findings, and if there is clinical concern of lower abdominal wall infection, the fluid could be aspirated. Findings discussed with BIJAL Cardenas at the time of interpretation on 02/26/2023 at 2:25 PM Fleischner guidelines were followed. Abdomen Ultrasound 02/26/23 14:00 IMPRESSION: Cholelithiasis with a positive sonographic Isaac's sign, suggesting cholecystitis. Cholangiopancreatography MRI 02/26/23 19:02 IMPRESSION: Gallstones and sludge in the gallbladder. No biliary duct dilatation. No common bile duct filling defect/stone. Increased T2 signal in and surrounding the pancreas and small peripancreatic fluid collections suggestive of pancreatitis. 5 mm low-attenuation lesion in the right lobe difficult to characterize. Anterior abdominal wall fluid collection. US - abdomen: Radiologist's impression: Impressions Abdomen/Pelvis CT 02/26/23 12:59 IMPRESSION: 1. Cholelithiasis, with a questionable filling defect in the distal common bile duct raising concern of choledocholithiasis. MRCP or ERCP might be of benefit in better evaluating the biliary duct structures given the presence of lucent calculi in the gallbladder. 2. Considerable infiltration and fluid about the pancreas, within the lesser sac, and adjacent to the post operative stomach. Findings are most suggestive of pancreatitis, though gastritis or peptic ulcer disease could have a similar appearance. No pancreatic pseudocyst or necrosis is detected. Given the presence of gallstones, gallstone pancreatitis should be considered. 3. Infiltration and poorly defined fluid collection in the lower anterior abdominal-pelvic wall, consistent with recent surgery. Infection of the collection would be difficult to exclude. Suggest correlation with clinical history, physical findings, and if there is clinical concern of lower abdominal wall infection, the fluid could be aspirated. Findings discussed with BIJAL Cardenas at the time of interpretation on 02/26/2023 at 2:25 PM Fleischner guidelines were followed. Abdomen Ultrasound 02/26/23 14:00 IMPRESSION: Cholelithiasis with a positive sonographic Isaac's sign, suggesting cholecystitis. Cholangiopancreatography MRI 02/26/23 19:02 IMPRESSION: Gallstones and sludge in the gallbladder. No biliary duct dilatation. No common bile duct filling defect/stone. Increased T2 signal in and surrounding the pancreas and small peripancreatic fluid collections suggestive of pancreatitis. 5 mm low-attenuation lesion in the right lobe difficult to characterize. Anterior abdominal wall fluid collection. Procedures Date of Service Date of Service: 02/27/23 Progress Note: A&P Assessment and plan (1) Abdominal pain: Status: Acute (2) Elevated LFTs: Status: Acute (3) Cholelithiases: Status: Acute (4) S/P panniculectomy: Status: Acute (5) Overweight (BMI 25.0-29.9): Status: Acute Plan I have reviewed the patient's symptoms, CT, ultrasound and suspect the patient experienced choledocholithiasis with gallstone pancreatitis is evidence by the peripancreatic inflammation noted on CT. His labs are improving and there is no evidence of choledocholithiasis at this time, but I have recommended laparoscopic or open cholecystectomy, possible intraoperative cholangiogram. I reviewed the option of continued observation and 2nd opinion which was declined. I also reviewed the inherent risks to surgery which include, but are not limited to: Bleeding that could require another operation or blood transfusion, the need for open surgery, the unlikely but possible issue of bile leak that could require an ERCP, the risk of retained common duct stones that could require an ERCP, the risk of common bile duct injury which would require transfer to a larger institution for another operation. Patient seemed to understand his options, declined a feed project engineer or 2nd opinion and wants to proceed. Patient seemed understand his options and wants to proceed as recommended. 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 Time Spent With Patient Time: Total time managing care of this patient today ____ minutes. Quality Stroke Does the patient have a stroke diagnosis?: No VTE Prior VTE?: No VTE Risk Level:: Surgical - moderate VTE Device Contraindication: N/A - Device Ordered VTE Drug Contraindication: Treatment Not Indicated
--- NOTE | 2023-02-27 07:40 | MHC.SHP ---
Pre-Procedural Eval Section A Date of Service: 02/27/23 The patient is an INPATIENT: Yes The History & Physical has been completed within 30 days and I have reviewed it.: Yes Section B Chief Complaint: abdominal pain Allergies: Allergies Allergy/AdvReac Type Severity Reaction Status Date / Time No Known Allergies Allergy Verified 02/26/23 10:18 [No Known Allergies*] Plan I have reviewed the history and physical and performed a pertinent physical examination on my patient. No changes have occurred unless specified. Time Spent With Patient Time: Total time managing care of this patient today ____ minutes.
--- NOTE | 2023-02-27 07:40 | W.PM.OPN ---
Operative Note Operative Note Date of Service: 02/28/23 Narrative: Preop diagnosis: [Gallstones, pancreatitis, status post sleeve gastrectomy] Postop diagnosis: [Same, right upper quadrant adhesions, enlarged fatty liver, edematous vince and gallbladder with stone] Procedure: [Laparoscopic cholecystectomy, lysis of adhesions for 25'] Surgeon: Riley Shannon MD, FACS, FASS Assist: [Alessandra Bautista PA-C] Anesthesia: [GET, Marcaine, 0.25% with epi] Estimated blood loss: [100cc] Drain: RENALDO in Morison's pouch Specimen: [Gallbladder and contents] Intraoperative findings: [Right upper quadrant adhesions from the omentum were present to the gallbladder. An edematous 4-5 mm cystic duct and 3 mm cystic artery were encountered, however the hepatomegaly and fatty liver as well as gallbladder edema obscured the interface. Gallbladder contents were spilled. All visible stones were retrieved.] Indications: [The patient is a 68-year-old gentleman who was noted to have gallstones on bariatric workup that were quiescent. 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 He had been doing very well until over the weekend while he was traveling by car and developed indigestion and severe abdominal pain that is progressed. He presented to the office for follow-up of his panniculectomy, and after experiencing progressive pain for several days, he was sent to the emergency department where he was noted to have elevated LFTs, leukocytosis, normal amylase, lipase and CT showing peripancreatic inflammation, gallstones and a 5 mm common bile duct. The presentation was concerning for choledocholithiasis, so MRCP was obtained. There was no evidence of choledocholithiasis. The history, gallstones and presentation were c/w gallstone pancreatitis and options were discussed including 2nd opinion. I recommended proceeding with a laparoscopic or open cholecystectomy, possible cholangiogram. The inherent risks to the procedure include, but are not limited to: Bleeding that could require another operation or blood transfusion, the need for open surgery, the unlikely but possible issue of bile leak that could require an ERCP, the risk of retained common duct stones that could require an ERCP, the risk of common bile duct injury which would require transfer to a larger institution for another operation. Patient seemed to understand his options declined a 2nd opinion wanted to proceed.] Procedure: [The patient was identified in preoperative holding and again in the operating room and placed supine on the table. An appropriate time-out was performed and preemptive local used at all trocar insertion sites. I began at the patient's supraumbilical midline and placed a Veress needle through a transverse supraumbilical incision. An appropriate drop test was performed. The needle was connected to high flow and opening pressures were 7 mmHg. A pneumoperitoneum of 15 mmHg was then obtained using carbon dioxide. The Veress needle was then removed and I accessed the patient's abdomen through the supraumbilical midline incision using a 5 mm Optiview trocar and 30 degree/5 mm laparoscopic without incident. Next a a 5 mm epigastric and two 5 mm right subcostal ports were placed with preemptive analgesia under direct laparoscopic vision without incident and the supraumbilical trocar upsized to a 12 mm trocar under direct laparoscopic vision. The omentum was both densely adherent to the liver and gallbladder requiring the LigaSure or to perform lysis of adhesions. The liver was also noted to be enlarged and fatty and significant edema was noted. The gallbladder was clearly identified and grasped by its fundus. It was retracted cranially and anteriorly and dissection began in the lateral cystic triangle. The cystic duct was identified at its junction on the gallbladder and dissection carried medially, then circumferentially using the [place] dissector and hook. The cystic artery was then carefully identified and circumferentially dissected. Once dissection of both structures was complete and the critical view of safety demonstrated, the duct and artery were double clipped proximally and once distally and sharply divided. Electrocautery was used to remove the gallbladder from its fossa on the liver. There was significant intrahepatic gallbladder with edema and during the dissection, the gallbladder was ripped and contents spilled. This was contained and the epigastric 5 mm port upsized to a 12 mm to use the larger suction system to copiously irrigate the operative field and stones the 2-3 mm gravel/sand like stones. There was some diffuse ooze in the liver bed that was rendered hemostatic with Surgicel that was ultimately removed. Liver bed was inspected for hemostasis and the clips were noted to be on the respective structures. The gallbladder was placed in an Endo-Catch bag and delivered through the umbilicus under direct laparoscopic vision. A round RENALDO drain was placed through the right lower abdominal lateral trocar site and placed in Morison's pouch and secured to the skin with a 2-0 silk. The portion of omentum that had been adhesed was tucked up over into the liver bed to facilitate hemostasis. The abdomen was again inspected with the laparoscoped and a abdomen deflated to assess for hemostasis. The patient was returned to neutral position, the abdomen deflated and the fascia of the supraumbilical incision closed with interrupted Vicryl sutures. Skin was closed with 4-0 Monocryl subcuticular sutures. Mastisol and Steri-Strips were applied followed by Band-Aids. The patient tolerated the procedure well and was extubated recovered in stable condition. All sponge instrument counts were correct. At the patient's request I called his Cinthya at [phone] regarding surgery & post-op plan. There was no answer so a brief message with the office phone number was left.]
[2023-02-27] MEDS: ondansetron HCL 4 MG/2 ML VIAL IVPUSH (08:56)
--- NOTE | 2023-02-27 09:20 | MHC.CM.PN ---
PT REPORTS HE LIVES WITH HIS AND IS INDEPENDENT WITH CARE HE HAS NO DME AND NO HOME SERVICES PT HAS A HCP ON FILE PCP: NAN CHAUDHARY IMM DELIVERED DCP: HOME NO SERVICES TO TRANSPORT
--- NOTE | 2023-02-27 11:36 | PC.NURSE ---
pt medicated per MAY for 8/10 abd pain.
[2023-02-27 12:26] VITALS: BP 145/75; PULSE 80; RESP 16; TEMP 36.7; O2SAT 96
[2023-02-27 12:36] VITALS: BMI 29.0
[2023-02-27 14:58] VITALS: BMI 29.0
[2023-02-27] MEDS: Lactated Ringers 1,000 ML 125 ML IVCONT (15:32)
[2023-02-27 15:44] VITALS: BP 144/64; PULSE 82; RESP 18; TEMP 37.2; O2SAT 96
--- NOTE | 2023-02-27 18:28 | PC.NURSE ---
Pt states MD came to see patient, okay for clears and Ice chips.
[2023-02-27 18:37] VITALS: BP 99/56
[2023-02-27 20:00] VITALS: BP 126/59; PULSE 77; RESP 18; TEMP 36.8; O2SAT 96
[2023-02-27] MEDS: LORazepam 1 MG TABLET PO (21:16)
[2023-02-28] VITALS (12 sets, daily range): BP systolic 132–183; BP diastolic 64–90; PULSE 76–88; RESP 14–20; TEMP 36.1–37.2; O2SAT 93–97
[2023-02-28] MEDS: HYDROmorphone HCl 0.5 MG/0.5 ML SYRINGE IVPUSH ×6 (02:40→22:17)
[2023-02-28] MEDS: Piperacillin Sodium/Tazobactam 3.375 GM in 0.9 % Sodium Chloride 50 ML IV ×4 (02:42→22:09)
[2023-02-28] MEDS: Lactated Ringers 1,000 ML 100 ML IVCONT ×2 (02:43→17:00)
[2023-02-28] MEDS: Pantoprazole Sodium 40 MG/10 ML VIAL IVPUSH (06:02)
--- NOTE | 2023-02-28 06:23 | PM.PNGS ---
Subjective Subjective Date of Service: 02/28/23 Interval history: Plan for OR today, patient reports some consistent pain, not as severe as at admission but he did require some narcotics overnight. He otherwise denies new complaints such as chest pain, difficulty breathing, shortness of breath or new neurologic symptoms. Physical Exam Vital Signs: Vital Signs: Last Vital Signs Temp 98.1 F 02/28/23 02:38 Pulse 76 02/28/23 02:38 Resp 18 02/28/23 02:38 BP 132/71 02/28/23 02:38 Pulse Ox 95 02/28/23 02:38 O2 Del Method Room Air 02/28/23 02:38 BMI result Body Mass Index 29.0 He remains nontoxic and in good spirits He is anicteric He is having no respiratory distress Abdomen remains overweight with epigastric tenderness with no peritoneal sign. Objective Data Active Medications Acetaminophen (Acetaminophen 325 Mg Tablet) 975 mg PO Q6H PRN PRN Reason: Pain, Mild (Pain Scale 1-3) Hydromorphone HCl (Hydromorphone Hcl 0.5 Mg/0.5 Ml Syringe) 0.5 mg IVPUSH Q2H PRN; Protocol PRN Reason: Pain, Moderate(Pain Scale 4-6) Last Admin: 02/28/23 06:02 Dose: 0.5 mg Documented By: YAMILEX Lactated Ringer's (Lr) 1,000 mls @ 100 mls/hr IVCONT .Q10H [facility] Last Infusion: 02/28/23 03:26 Dose: 100 mls/hr Documented By: YAMILEX Piperacillin Sod/Tazobactam (Sod 3.375 gm/ Sodium Chloride) 50 mls @ 100 mls/hr IV Q6H [facility] Last Infusion: 02/28/23 03:26 Dose: Infused Documented By: YAMILEX Ondansetron HCl (Ondansetron Hcl 4 Mg/2 Ml Vial) 4 mg IVPUSH Q6H PRN PRN Reason: Nausea and Vomiting Last Admin: 02/27/23 08:56 Dose: 4 mg Documented By: KWABENA Pantoprazole Sodium (Pantoprazole Sodium 40 Mg/10 Ml Vial) 40 mg IVPUSH DAILY@0630 [facility] Last Admin: 02/28/23 06:02 Dose: 40 mg Documented By: YAMILEX Labs 02/27/23 05:09 02/27/23 05:09 Labs: Today's labs 02/28, are pending Microbiology Microbiology Results: Microbiology 02/26/23 12:35 Blood Culture - Preliminary Blood - Venous No growth after 24 hours. 02/26/23 12:35 Blood Culture - Preliminary Blood - Venous No growth after 24 hours. Procedures Date of Service Date of Service: 02/28/23 Progress Note: A&P Assessment and plan (1) Gallstone pancreatitis: Status: Acute (2) Cholelithiases: Status: Acute (3) HTN (hypertension): Status: Acute (4) Overweight (BMI 25.0-29.9): Status: Acute (5) S/P laparoscopic sleeve gastrectomy: Status: Acute (6) S/P panniculectomy: Status: Acute Plan Continue NPO IVF Plan for cholecystectomy, laparoscopic or open with possible cholangiogram. 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 Continue Zosyn Time Spent With Patient Time: Total time managing care of this patient today ____ minutes. Quality Stroke Does the patient have a stroke diagnosis?: No VTE Prior VTE?: No VTE Risk Level:: Surgical - moderate VTE Device Contraindication: N/A - Device Ordered VTE Drug Contraindication: Treatment Not Indicated
[2023-02-28 06:26] LABS: MANUAL DIFF FLAG NO
[2023-02-28 06:58] LABS: Alanine Aminotransferase 93 U/L (0-40); Albumin Level 3.2 g/dL (3.5-5.0); Alkaline Phosphatase 62 U/L (39-117); Anion Gap 14 (12-20); Aspartate Amino Transferase 18 U/L (5-37); Bilirubin Total 1.3 mg/dL (0.0-1.0); Blood Urea Nitrogen 11 mg/dL (9-16); Calcium 9.1 mg/dL (8.4-10.2); Carbon Dioxide 27 mmol/L (22-29); Chloride 103 mmol/L (96-108); Creatinine Clr Calc Pharmacy 148.6; Estimated Glomerular Filt Rate > 60; Glucose Random 92 mg/dL (60-115); Potassium 3.7 mmol/L (3.3-5.1); Sodium 140 mmol/L (135-145); Total Protein 5.8 g/dL (6.5-8.0)
[2023-02-28 07:02] LABS: Basophils Absolute Auto 0.1 X10*3/uL (0.0-0.2); Basophils Percent Auto 0.4 % (0-2); Eosinophils Absolute Auto 0.1 X10*3/uL (0.0-0.4); Hematocrit 40.4 % (42.0-52.0); Hemoglobin 13.4 g/dl (14.0-18.0); Imm Gran Abs Auto 0.05 X10*3/uL (0.00-0.03); Imm Gran Pct Auto 0.4 % (0.0-0.4); Lymphocytes Absolute Auto 1.8 X10*3/uL (1.2-4.9); Lymphocytes Percent Auto 15.7 % (20-40); Mean Corpuscular HGB Conc 33.2 g/dl (31.0-36.0); Mean Corpuscular Hemoglobin 29.1 pg (27.0-33.0); Mean Corpuscular Volume 87.6 fL (80.0-98.0); Mean Platelet Volume 11.2 fL (9.4-12.4); Monocytes Absolute Auto 1.5 X10*3/uL (0.1-1.2); Monocytes Percent Auto 12.7 % (2-11); Neutrophils Absolute Auto 8.2 x10*3/uL (2.0-8.3); Neutrophils Percent Auto 69.8 % (45-73); Platelet Count 177 X10*3/uL (160-400); Red Blood Count 4.61 X10*6/uL (4.60-5.80); Red Cell Distribution Width 13.7 % (11.0-16.0); White Blood Count 11.7 X10*3/uL (4.8-10.8)
--- NOTE | 2023-02-28 12:48 | HO.ANESPROP2 ---
HPI - Anesthesia Eval Consult details Narrative: for lap. cholecystectomy PMFSH Active Problems Active Problems: All Active Problems (Updated 02/28/23 @ 07:00 by Riley Shannon MD, FACS, [facility]) Gallstone pancreatitis (Acute) Abdominal pain (Acute) Elevated LFTs (Acute) Abdominal pain (Acute) Cholelithiases (Acute) Abdominal wall seroma (Acute) Cellulitis (Acute) S/P panniculectomy (Acute) Obese (Acute) DMII (diabetes mellitus, type 2) (Acute) HLD (hyperlipidemia) (Acute) BMI 35.0-35.9,adult (Acute) Abnormal myocardial perfusion study (Acute) Hiatal hernia (Acute) Congenital intra-abdominal adhesions (Acute) Elevated blood pressure reading (Acute) HTN (hypertension) (Acute) Overweight (BMI 25.0-29.9) (Acute) Erectile dysfunction (Acute) Excess skin (Acute) Viral upper respiratory illness (Acute) Pre-op evaluation (Acute) Postgastrectomy malabsorption (Acute) History of repair of hiatal hernia (Acute) S/P laparoscopic sleeve gastrectomy (Acute) Diastolic dysfunction (Acute) Steatosis, liver (Acute) Migraines (Acute) DJD (degenerative joint disease) (Acute) Past Medical History Medical History (Updated 03/06/23 @ 00:01 by Carol Mckoy) Hx of panniculitis Postgastrectomy malabsorption Diastolic dysfunction Steatosis, liver BMI 33.0-33.9,adult Lumbar disc disease Arthritis Elevated cholesterol Vitamin D deficiency Migraines DJD (degenerative joint disease) Obesity (BMI 30.0-34.9) Tendinopathy of left shoulder Colon cancer screening Family History Family History Father Diabetes Heart problem Mother Breast cancer Diverticulitis Family history of problems with anesthesia: No Surgical History Surgical History Hx laparoscopic cholecystectomy S/P laparoscopic sleeve gastrectomy History of repair of hiatal hernia Hx of tooth extraction H/O colonoscopy Hx of arthroscopic knee surgery Rupture of right patellar tendon Hernia History of Problems with Anesthesia: No Social History Social History Household Members: Spouse Housing: House Are you a primary healthcare associate to a significant other at home: No Do you presently have visiting nurse or other home services: No Alcohol intake: current Alcohol intake frequency: holidays/special occasions only Comment: none Patient Tobacco Use Status: Former Tobacco user Quit Date: ~age 26 Tobacco use type: Cigarette Years Smoked: 10 e-Cigarette/Vaping Use: Never Used Second Hand Smoke Exposure: No Advance Directives Date on File: 07/04/21 service: No Current occupational status: retired Cognitive needs: No Hearing needs: No Vision needs: Yes Meds Allergies Allergy/AdvReac Type Severity Reaction Status Date / Time No Known Allergies Allergy Verified 02/28/23 11:46 [No Known Allergies*] Active Medications: Current Medications Acetaminophen (Acetaminophen 325 Mg Tablet) 975 mg PO Q6H PRN PRN Reason: Pain, Mild (Pain Scale 1-3) Hydromorphone HCl (Hydromorphone Hcl 0.5 Mg/0.5 Ml Syringe) 0.5 mg IVPUSH Q2H PRN; Protocol PRN Reason: Pain, Moderate(Pain Scale 4-6) Last Admin: 02/28/23 09:37 Dose: 0.5 mg Lactated Ringer's (Lr) 1,000 mls @ 100 mls/hr IVCONT .Q10H [facility] Last Infusion: 02/28/23 03:26 Dose: 100 mls/hr Piperacillin Sod/Tazobactam (Sod 3.375 gm/ Sodium Chloride) 50 mls @ 100 mls/hr IV Q6H [facility] Last Infusion: 02/28/23 09:40 Dose: Infused Ondansetron HCl (Ondansetron Hcl 4 Mg/2 Ml Vial) 4 mg IVPUSH Q6H PRN PRN Reason: Nausea and Vomiting Last Admin: 02/27/23 08:56 Dose: 4 mg Pantoprazole Sodium (Pantoprazole Sodium 40 Mg/10 Ml Vial) 40 mg IVPUSH DAILY@0630 [facility] Last Admin: 02/28/23 06:02 Dose: 40 mg Home Medications Medication Instructions Recorded Confirmed Last Taken Type Celebrate Multivtiamin 1 cap PO DAILY 02/26/23 02/28/23 Unknown History Exam Height,Weight and Vital Signs: Height 6 ft 5 in Weight 111 kg Last Vital Signs Temp 99.0 F 02/28/23 11:51 Pulse 77 02/28/23 11:51 Resp 16 02/28/23 11:51 BP 151/74 H 02/28/23 11:51 Pulse Ox 97 02/28/23 11:51 O2 Del Method Room Air 02/28/23 11:51 Pertinent Lab Results Pertinent Lab Results: Laboratory Tests 02/26/23 02/26/23 02/26/23 09:05 12:35 17:04 WBC RBC Hgb Hct MCV MCH MCHC RDW Plt Count MPV Immature Gran % (Auto) Neut % (Auto) Lymph % (Auto) [place] % (Auto) Eos % (Auto) Baso % (Auto) Lymph # (Auto) [place] # (Auto) Eos # (Auto) Baso # (Auto) Abs Immat Gran (auto) Absolute Neuts (auto) Absolute Nucleated RBC Nucleated RBC % (auto) Smear Tech's Comments Sodium Potassium Chloride Carbon Dioxide Anion Gap BUN Creatinine Estim Creat Clear Calc Estimated GFR Random Glucose Lactic Acid 1.4 Calcium Magnesium 2.3 Total Bilirubin AST ALT Alkaline Phosphatase Total Protein Albumin Amylase Lipase 28 Urine Color Yellow Urine Appearance Clear Urine pH 7.0 Ur Specific [place] <= 1.005 Urine Protein 30 (1+) H Urine Glucose (UA) Negative Urine Ketones 40 Urine Blood Negative Urine Nitrite Negative Ur Leukocyte Esterase Negative Urine RBC 0-2 Urine WBC 0-5 Ur Squamous Epith Cells 0-2 Urine Bacteria None Seen Hyaline Casts 0-2 02/27/23 02/28/23 05:09 06:00 WBC 14.9 H 11.7 H RBC 4.72 4.61 Hgb 13.6 L 13.4 L Hct 40.6 L 40.4 L MCV 86.0 87.6 MCH 28.8 29.1 MCHC 33.5 33.2 RDW 14.0 13.7 Plt Count 165 177 MPV 10.7 11.2 Immature Gran % (Auto) 0.5 H 0.4 Neut % (Auto) 73.4 H 69.8 Lymph % (Auto) 13.0 L 15.7 L [place] % (Auto) 12.3 H 12.7 H Eos % (Auto) 0.5 1.0 Baso % (Auto) 0.3 0.4 Lymph # (Auto) 1.9 1.8 [place] # (Auto) 1.8 H 1.5 H Eos # (Auto) 0.1 0.1 Baso # (Auto) 0.1 0.1 Abs Immat Gran (auto) 0.07 H 0.05 H Absolute Neuts (auto) 10.9 H 8.2 Absolute Nucleated RBC 0.000 0.000 Nucleated RBC % (auto) 0.0 0.0 Smear Tech's Comments VERIFIED Sodium 138 140 Potassium 4.0 3.7 Chloride 104 103 Carbon Dioxide 26 27 Anion Gap 12 14 BUN 10 11 Creatinine 0.64 0.64 Estim Creat Clear Calc 146.4 148.6 Estimated GFR > 60 > 60 Random Glucose 112 92 Lactic Acid Calcium 9.0 D 9.1 Magnesium Total Bilirubin 1.6 H 1.3 H AST 19 18 ALT 143 H 93 H Alkaline Phosphatase 83 62 Total Protein 6.0 L 5.8 L Albumin 3.4 L 3.2 L Amylase 44 Lipase Urine Color Urine Appearance Urine pH Ur Specific [place] Urine Protein Urine Glucose (UA) Urine Ketones Urine Blood Urine Nitrite Ur Leukocyte Esterase Urine RBC Urine WBC Ur Squamous Epith Cells Urine Bacteria Hyaline Casts Airway Mallampati Class: II TM Dist: >3cm Neck ROM: Full Denture: Upper and Lower Heart: ok Lungs: ok Assessment and Plan Assessment Anesthesia Assessment: Anesthesia Plan Discussed and Chart Reviewed Final Anesthetic Review Family History of Problems with Anesthesia: No History of Problems with Anesthesia: No NPO: Yes ASA Class: III Final Preanesthetic Review: No Changes in Pt Med Stat, Meds/Allgs Chart Reviewed, Consent Obtained/Reviewed and Anes Risks/Benef Reviewed Patient Risk: Intermediate Procedure Risk: Intermediate Anesthetic Plan Anesthetic Plan: GA and Agree w/ Assess. and Plan Disposition: Standard PACU
--- NOTE | 2023-02-28 17:18 | PC.NURSE ---
Pt returned from OR/PACU sp lap gurpreet . Abd lap sites CDI RENALDO to ss draining sangenous pt medicated for pain see MAR oob to BR voided w/o difficulty
[2023-02-28] MEDS: LORazepam 0.5 MG TABLET PO (22:09)
[2023-03-01] MEDS: HYDROmorphone HCl 0.5 MG/0.5 ML SYRINGE IVPUSH ×2 (01:46→04:07)
[2023-03-01] MEDS: Lactated Ringers 1,000 ML 100 ML IVCONT (03:52)
[2023-03-01 04:00] VITALS: BP 129/69; PULSE 79; RESP 18; TEMP 37.1; O2SAT 94
[2023-03-01] MEDS: Piperacillin Sodium/Tazobactam 3.375 GM in 0.9 % Sodium Chloride 50 ML IV (04:07)
[2023-03-01 06:18] LABS: MANUAL DIFF FLAG NO
[2023-03-01 06:28] LABS: Basophils Percent Auto 0.3 % (0-2); Eosinophils Absolute Auto 0.1 X10*3/uL (0.0-0.4); Eosinophils Percent Auto 0.7 % (0-4); Hematocrit 38.2 % (42.0-52.0); Imm Gran Abs Auto 0.05 X10*3/uL (0.00-0.03); Imm Gran Pct Auto 0.5 % (0.0-0.4); Lymphocytes Absolute Auto 1.7 X10*3/uL (1.2-4.9); Lymphocytes Percent Auto 15.6 % (20-40); Mean Corpuscular Hemoglobin 29.3 pg (27.0-33.0); Mean Platelet Volume 10.8 fL (9.4-12.4); Monocytes Absolute Auto 1.5 X10*3/uL (0.1-1.2); Monocytes Percent Auto 13.5 % (2-11); Neutrophils Absolute Auto 7.5 x10*3/uL (2.0-8.3); Neutrophils Percent Auto 69.4 % (45-73); Platelet Count 191 X10*3/uL (160-400); Red Blood Count 4.44 X10*6/uL (4.60-5.80); Red Cell Distribution Width 13.3 % (11.0-16.0); White Blood Count 10.8 X10*3/uL (4.8-10.8)
[2023-03-01] MEDS: Pantoprazole Sodium 40 MG/10 ML VIAL IVPUSH (06:29)
[2023-03-01 06:39] LABS: Alanine Aminotransferase 123 U/L (0-40); Albumin Level 3.1 g/dL (3.5-5.0); Alkaline Phosphatase 58 U/L (39-117); Anion Gap 11 (12-20); Aspartate Amino Transferase 64 U/L (5-37); Blood Urea Nitrogen 8 mg/dL (9-16); Calcium 8.7 mg/dL (8.4-10.2); Carbon Dioxide 29 mmol/L (22-29); Chloride 103 mmol/L (96-108); Estimated Glomerular Filt Rate > 60; Glucose Random 119 mg/dL (60-115); Potassium 3.9 mmol/L (3.3-5.1); Sodium 139 mmol/L (135-145); Total Protein 5.7 g/dL (6.5-8.0)
--- NOTE | 2023-03-01 07:09 | PM.PNGS ---
Subjective Subjective Date of Service: 03/01/23 Patient reports: feels better, tolerating liquids well and flatus Interval history: The patient reports that he is doing well and hopeful for discharge. We discussed the intraoperative findings and need to leave a temporary drain. Unfortunately, the patient is acquainted with these drains due to his prior panniculectomy. He understands that it is temporary and will likely be removed in the office next week. He notes that he recalls how to care for the drain in that he cannot shower. He otherwise denies any interval change such as chest pain, difficulty breathing, shortness of breath, nausea or vomiting. He reports that his pain is improved to the point that he would like to try p.o. medications in typically takes oxycodone, 10 mg postoperatively for pain Physical Exam Vital Signs: Vital Signs: Last Vital Signs Temp 98.8 F 03/01/23 04:00 Pulse 79 03/01/23 04:00 Resp 18 03/01/23 04:00 BP 129/69 03/01/23 04:00 Pulse Ox 94 03/01/23 04:00 O2 Del Method Room Air 03/01/23 04:00 BMI result Body Mass Index 29.0 On exam, the patient is in good spirits and sitting out of bed in a chair He is anicteric He is having no respiratory difficulty He appears comfortable His abdomen has expected incisional tenderness and serosanguineous drainage in the RENALDO bulb. There is no bilious drainage at this time Objective Data Active Medications Acetaminophen (Acetaminophen 325 Mg Tablet) 975 mg PO Q6H PRN PRN Reason: Pain, Mild (Pain Scale 1-3) Hydromorphone HCl (Hydromorphone Hcl 0.5 Mg/0.5 Ml Syringe) 0.5 mg IVPUSH Q2H PRN; Protocol PRN Reason: Pain, Moderate(Pain Scale 4-6) Last Admin: 03/01/23 04:07 Dose: 0.5 mg Documented By: LEIA Lactated Ringer's (Lr) 1,000 mls @ 100 mls/hr IVCONT .Q10H [facility] Last Infusion: 03/01/23 04:40 Dose: 100 mls/hr Documented By: LEIA Piperacillin Sod/Tazobactam (Sod 3.375 gm/ Sodium Chloride) 50 mls @ 100 mls/hr IV Q6H [facility] Last Infusion: 03/01/23 04:40 Dose: Infused Documented By: LEIA Lorazepam (Lorazepam 0.5 Mg Tablet) 0.5 mg PO Q8H PRN PRN Reason: Anxiety Last Admin: 02/28/23 22:09 Dose: 0.5 mg Documented By: LEIA Ondansetron HCl (Ondansetron Hcl 4 Mg/2 Ml Vial) 4 mg IVPUSH Q6H PRN PRN Reason: Nausea and Vomiting Last Admin: 02/27/23 08:56 Dose: 4 mg Documented By: KWABENA Pantoprazole Sodium (Pantoprazole Sodium 40 Mg/10 Ml Vial) 40 mg IVPUSH DAILY@0630 [facility] Last Admin: 03/01/23 06:29 Dose: 40 mg Documented By: LEIA Labs 03/01/23 06:08 03/01/23 06:08 Labs: Laboratory Results - last 24 hr 03/01/23 06:08 MCV 86.0 MCH 29.3 MCHC 34.0 RDW 13.3 Plt Count 191 MPV 10.8 Immature Gran % (Auto) 0.5 H Neut % (Auto) 69.4 Lymph % (Auto) 15.6 L [place] % (Auto) 13.5 H Eos % (Auto) 0.7 Baso % (Auto) 0.3 Lymph # (Auto) 1.7 [place] # (Auto) 1.5 H Eos # (Auto) 0.1 Baso # (Auto) 0.0 Abs Immat Gran (auto) 0.05 H Absolute Neuts (auto) 7.5 Absolute Nucleated RBC 0.000 Nucleated RBC % (auto) 0.0 Anion Gap 11 L Estim Creat Clear Calc 151.0 Estimated GFR > 60 Random Glucose 119 H Calcium 8.7 Total Bilirubin 1.0 AST 64 H ALT 123 H Alkaline Phosphatase 58 Total Protein 5.7 L Albumin 3.1 L Microbiology Microbiology Results: Microbiology 02/26/23 12:35 Blood Culture - Preliminary Blood - Venous No growth after 48 hours. 02/26/23 12:35 Blood Culture - Preliminary Blood - Venous No growth after 48 hours. Procedures Date of Service Date of Service: 03/01/23 Progress Note: A&P Assessment and plan (1) S/P laparoscopic cholecystectomy: Status: Acute (2) Gallstone pancreatitis: Status: Acute (3) Elevated LFTs: Status: Acute (4) Overweight (BMI 25.0-29.9): Status: Acute (5) S/P laparoscopic sleeve gastrectomy: Status: Acute (6) History of repair of hiatal hernia: Status: Acute Plan Instructions regarding diet, activity, wound care, in addition of protein shakes reviewed. Patient is requested that we change his medications to work towards discharge today. Based on his available labs, this is reasonable. Need for follow-up with me next week to assess drain and possible removal was discussed. See orders. If patient tolerates breakfast and has good analgesia with p.o. meds, will discharge by lunch today. Time Spent With Patient Time: Total time managing care of this patient today ____ minutes. Quality Stroke Does the patient have a stroke diagnosis?: No VTE Prior VTE?: No VTE Risk Level:: Surgical - moderate VTE Device Contraindication: N/A - Device Ordered VTE Drug Contraindication: Treatment Not Indicated
--- NOTE | 2023-03-01 07:16 | P.DS_ITS ---
DS: Providers Provider Date of Service: 03/01/23 Date of admission: 02/26/23 13:40 Primary care physician: Jorge Parikh PA-C DS: Diagnosis Discharge Diagnosis (1) S/P laparoscopic cholecystectomy: Status: Acute (2) Gallstone pancreatitis: Status: Acute (3) Elevated LFTs: Status: Acute (4) Overweight (BMI 25.0-29.9): Status: Acute (5) S/P laparoscopic sleeve gastrectomy: Status: Acute (6) History of repair of hiatal hernia: Status: Acute DS: Summary Hospital Course Hospital Course: See admitting H and P for full details. Briefly, this 68-year-old gentleman started experiencing symptoms of abdominal pain consistent with gallstone pancreatitis several days prior to admission. He presented to the office for follow-up after a sleeve gastrectomy 2021 and panniculectomy 2022, but was experiencing such pain he was sent to the emergency room. He was diagnosed with gallstone pancreatitis and workup failed to demonstrate any overt choledocholithiasis. He was taken for laparoscopic cholecystectomy on 02/28/2023 with need to leave drain in Morison's pouch. By postop day 1, the patient's pain was controlled with oral medications, he was transition to a low-fat diet and encouraged to resume the postop bariatric diet and discharged in improved condition. Will follow up with me with drain output number and repeat LFTs on an outpatient basis Overall condition at time discharge is improved. Time Attestation Discharge coordination time: Greater than 30 minutes Quality: Safe Use of Opioids Does Pt have an Active Cancer Diagnosis on the Problem List?: No Quality: Stroke Does the patient have a stroke diagnosis?: No Physical Exam Vital Signs: Vital Signs: Last Vital Signs Temp 98.8 F 03/01/23 04:00 Pulse 79 03/01/23 04:00 Resp 18 03/01/23 04:00 BP 129/69 03/01/23 04:00 Pulse Ox 94 03/01/23 04:00 O2 Del Method Room Air 03/01/23 04:00 BMI result Body Mass Index 29.0 DS: Data Data Completed and Pending Completed studies during hospitalization [Text1]: Procedures Excision of Stomach, Percutaneous Endoscopic Approach, Vertical (07/04/21) Release Peritoneum, Percutaneous Endoscopic Approach (07/04/21) Repair Diaphragm, Percutaneous Endoscopic Approach (07/04/21) Pending studies at discharge: Pending at discharge 02/28/23 15:00 Surgical [PTH] Routine Labs on day of discharge: Laboratory Results - last 24 hr 03/01/23 06:08 WBC 10.8 RBC 4.44 L Hgb 13.0 L Hct 38.2 L MCV 86.0 MCH 29.3 MCHC 34.0 RDW 13.3 Plt Count 191 MPV 10.8 Immature Gran % (Auto) 0.5 H Neut % (Auto) 69.4 Lymph % (Auto) 15.6 L [place] % (Auto) 13.5 H Eos % (Auto) 0.7 Baso % (Auto) 0.3 Lymph # (Auto) 1.7 [place] # (Auto) 1.5 H Eos # (Auto) 0.1 Baso # (Auto) 0.0 Abs Immat Gran (auto) 0.05 H Absolute Neuts (auto) 7.5 Absolute Nucleated RBC 0.000 Nucleated RBC % (auto) 0.0 Sodium 139 Potassium 3.9 Chloride 103 Carbon Dioxide 29 Anion Gap 11 L BUN 8 L Creatinine 0.63 Estim Creat Clear Calc 151.0 Estimated GFR > 60 Random Glucose 119 H Calcium 8.7 Total Bilirubin 1.0 AST 64 H ALT 123 H Alkaline Phosphatase 58 Total Protein 5.7 L Albumin 3.1 L Preliminary micro results at discharge 02/26/23 12:35 Blood Culture - Preliminary Blood - Venous No growth after 48 hours. 02/26/23 12:35 Blood Culture - Preliminary Blood - Venous No growth after 48 hours. Discharge Plan Discharge Anticipated Discharge Date/Time: 03/01/23 12:00 Patient Disposition: Home, Self-Care Discharge Diagnosis: gallstone pancreatitis, s/p lap merritt Referrals: Jorge Parikh PA-C [Primary Care Provider] - 1 Week Riley Shannon MD, FACS, [facility] [Physician] - 1 Week Discharge Medications: New amoxicillin-pot clavulanate 875-125 mg tablet 1 tab PO Q12H Qty: 10 0RF oxycodone 5 mg tablet 10 mg PO Q4H PRN (Reason: pain) Qty: 30 0RF Rx Instructions: Partial Fill upon patient request. Continued Celebrate Multivtiamin 1 cap PO DAILY Diet: low fat bariatric Activity on Discharge: No heavy lifting Stand Alone Forms: Patient Portal Discharge page Activity Restrictions/Additional Instructions: You had a laparoscopic cholecystectomy performed by Dr. Shannon. It is normal to experience some neck or shoulder pain from the gas used to inflate your abdomen. It is also normal to have pain or discomfort in your abdomen/belly as well as at the trocar sites (small incisions). This discomfort will resolve over the next 1-3 days, however, if it gets progressively worse, if you should develop worsening pain, nausea, vomiting and cannot keep liquids down, chest pain, difficulty breathing or shortness of breath, fevers over 100F please report to the nearest emergency department. You will need to see Dr. Shannon next week. Please call [phone] to schedule an appointment and you can use the same number to contact him if there are questions over the weekend. Unless otherwise directed by Dr. Shannon, you should resume taking your regular medications. The prescribed antibiotics will be taken every 12 hours for 5 days. You do not need to take narcotics unless you are having severe pain. You must monitor the RENALDO drain and record output every 24 hours. This informa tion is important regarding the drain removal, so a written or digital record is important. If a drain is removed too early, there is a greater risk of abscess or fluid collections that can require another procedure. As Dr. Shannon reviewed in the office, you must not lift more than 20 lb for the next 4 weeks. Strenuous activities can tear out your sutures and cause an incisional hernia that would require another operation. Activities to be avoided include: sports, running, bicycling, yoga, lifting more than 20 lb, digging, gardening, splitting/carrying wood, swimming, hiking uphill, and other activities. If you have questions regarding this specific activity, please check with Dr. Shannon. If your incisions become red, swollen, tender or draining pus, please contact Dr. Shannon or go to the nearest emergency department. Do not shower while the drain is in place. Remove the Band-Aids in 48 hours. After the dressings are removed in 48 hours, you will notice paper tapes called butterflies/Steri-Strips. These tapes will fall off on their own in 1-2 weeks. You do not need to apply another bandage unless your clothing irritates your incisions. If you need to place another Band-Aid on your incisions, be sure to wait until the Steri strip is dry. You have been prescribed narcotic pain medicine that will cause constipation. Please purchase [id number] stool softener known as Colace/docusate, 100 mg. Take 2 tablets with breakfast and the morning and 2 tablets in the evening after dinner until your bowels are moving and urine or longer taking narcotics. Please note that if you are not taking narcotics, the general anesthesia for the procedure can still cause constipation. If you experience diarrhea, stop taking the stool softener medicine. You can take [id number] Tylenol/acetaminophen with [id number] liquid ibuprofen (pediaprofen, 400-600mg) for pain if you are still having pain after the Tylenol and oxycodone. You should also use ice packs to the operative site to help minimize pain and swelling for the first 3 days, or as needed afterwards. Remember that the gallbladder helps to to digest fatty foods. If you eat fried foods; rich, creamy sauces; cheese; gravies or other such heavy, greasy foods, you will likely develop gas and bloating and diarrhea. To minimize this risk, eat a high protein, high-fiber, low-fat diet for the next few weeks. Postop bariatric patients will often resume protein shakes for 2 meals a day to be sure there obtaining enough protein and minimizing fat after this procedure. Remember that you are at risk for recurring gallstone pancreatitis if there is sludge in your bile duct not seen on MRCP. Contact Dr. Shannon immediately if your symptoms return. Care Plan Goals: Follow diet recommendations, allow adequate healing, trend drain output Health Concerns: Monitor healing and liver tests Plan of Treatment: Low-fat high-protein diet and multivitamin; postoperative healing Assessment: Gallstone pancreatitis, status post lap merritt 02/28/23
[2023-03-01 07:28] VITALS: BP 129/60; PULSE 76; RESP 16; TEMP 36.2; O2SAT 96
[2023-03-01] MEDS: Docusate Sodium 100 MG CAPSULE 200 MG PO (08:16)
[2023-03-01] MEDS: Amoxicillin/Potassium Clav 875 MG TABLET PO (08:16)
[2023-03-01] MEDS: oxyCODONE HCl Immed Release 5 MG TABLET 10 MG PO (08:19)
--- NOTE | 2023-03-01 10:35 | MHC.CM.PN ---
IMM 02/27/23 Patient is discharged to home today selfcare. Patient has arranged for transportation home.
--- NOTE | 2023-03-01 12:00 | PC.NURSE ---
pt educated on the care of the RENALDO drain. pt was receptive and comfortable with as hes care for them at home in the past .
--- NOTE | 2023-03-01 15:36 | HO.POSTANES ---
Post Anesthesia Evaluation Post Anesthesia Evaluation Date of Service: 03/01/23 Vital Signs: Vital Signs Temp Pulse Resp BP Pulse Ox O2 Del Method 03/01/23 07:28 97.2 F 76 16 129/60 96 Room Air 03/01/23 04:00 98.8 F 79 18 129/69 94 Room Air Anesthesia: General Endotracheal-GETA Mental Status: Awake Pain Control: Satisfactory Nausea/Vomiting: None Hydration: Adequate Anesthesia-Related Issues: No Anes. Related Issues
== END 2023-03-01 12:00 | disposition home or self-care (01) | DRG 419 ==
LOC: HO.ED 13:31 → HO.EDOVER 13:49 → HO.S3 02-27 10:50
PROVIDERS: Physician Assistant; Admitting Provider Surgery; Emergency Provider Emergency Medicine Emergency Medical Services; PCP Physician Assistant; Visit Provider Surgery
PROC: 0FT44ZZ Resection of Gallbladder, Percutaneous Endoscopic Approach (ICD-10-PCS; CPT 47562; principal; 2023-02-28 13:40)
DX: K85.10 Biliary acute pancreatitis without necrosis or infection (principal); K80.20 Calculus of gallbladder without cholecystitis without obstruction; E11.9 Type 2 diabetes mellitus without complications; I10 Essential (primary) hypertension; E66.3 Overweight; Z68.29 Body mass index [BMI] 29.0-29.9, adult; K76.0 Fatty (change of) liver, not elsewhere classified; K82.8 Other specified diseases of gallbladder; Z98.84 Bariatric surgery status
CPT/HCPCS: 36415; 74177; 74181; 76705; 80053; 80061; 81001; 82150; 82306; 82607; 82728; 82746; 83036; 83540; 83605; 83690; 83735; 84425; 84443; 84590; 84630; 85025; 86140; 87040; 88304; 99024; 99212; 99285; C9113; J1170; J2270; J2405; J2543; J2704; J3010; J7120; Q9967

== ENCOUNTER → 2023-02-26 13:40 | Outpatient (BNV) | payer MEDICARE, SELFPAY | PROVIDERS: Admitting Provider Surgery; Emergency Provider Emergency Medicine Emergency Medical Services; PCP Physician Assistant; Visit Provider Surgery | DX: R10.9 Unspecified abdominal pain (principal); K80.20 Calculus of gallbladder without cholecystitis without obstruction; R79.89 Other specified abnormal findings of blood chemistry; Z98.890 Other specified postprocedural states; E11.9 Type 2 diabetes mellitus without complications; E78.2 Mixed hyperlipidemia; K44.9 Diaphragmatic hernia without obstruction or gangrene; I10 Essential (primary) hypertension; E66.3 Overweight; Z98.84 Bariatric surgery status; Z87.19 Personal history of other diseases of the digestive system | CPT/HCPCS: 47562; 99024; 99222; 99232 ==

== ENCOUNTER 2023-03-04 06:01 | Outpatient (REF) | payer MEDICARE, SELFPAY ==
[2023-03-04 06:18] LABS: MANUAL DIFF FLAG NO
[2023-03-04 07:46] LABS: Basophils Absolute Auto 0.1 X10*3/uL (0.0-0.2); Basophils Percent Auto 0.6 % (0-2); Eosinophils Absolute Auto 0.2 X10*3/uL (0.0-0.4); Eosinophils Percent Auto 2.3 % (0-4); Hematocrit 45.7 % (42.0-52.0); Hemoglobin 15.2 g/dl (14.0-18.0); Imm Gran Abs Auto 0.08 X10*3/uL (0.00-0.03); Lymphocytes Absolute Auto 1.8 X10*3/uL (1.2-4.9); Lymphocytes Percent Auto 22.3 % (20-40); Mean Corpuscular HGB Conc 33.3 g/dl (31.0-36.0); Mean Corpuscular Hemoglobin 28.7 pg (27.0-33.0); Mean Corpuscular Volume 86.2 fL (80.0-98.0); Mean Platelet Volume 10.4 fL (9.4-12.4); Monocytes Absolute Auto 1.1 X10*3/uL (0.1-1.2); Monocytes Percent Auto 13.7 % (2-11); Neutrophils Absolute Auto 4.8 x10*3/uL (2.0-8.3); Neutrophils Percent Auto 60.1 % (45-73); Platelet Count 301 X10*3/uL (160-400); Red Cell Distribution Width 13.1 % (11.0-16.0)
[2023-03-04 08:07] LABS: Alanine Aminotransferase 73 U/L (0-40); Albumin Level 3.7 g/dL (3.5-5.0); Alkaline Phosphatase 63 U/L (39-117); Anion Gap 16 (12-20); Aspartate Amino Transferase 26 U/L (5-37); Bilirubin Total 0.7 mg/dL (0.0-1.0); Blood Urea Nitrogen 10 mg/dL (9-16); Calcium 9.8 mg/dL (8.4-10.2); Carbon Dioxide 29 mmol/L (22-29); Chloride 101 mmol/L (96-108); Estimated Glomerular Filt Rate > 60; Glucose Random 115 mg/dL (60-115); Sodium 142 mmol/L (135-145); Total Protein 6.9 g/dL (6.5-8.0)
[2023-03-04 08:09] LABS: Appearance Urine Clear; Color Urine Yellow; Glucose Urine UA Negative (Negative); Leukocyte Esterase Urine Negative (Negative); Nitrite Urine Negative (Negative); Specific Gravity - Urine 1.015 (1.005-1.025); Urine Blood Negative (Negative); Urine Ketones Negative (Negative); Urine Protein Negative (Neg-Trace)
== END 2023-03-04 06:02 | disposition home or self-care (01) ==
LOC: HO.LAB 06:01
PROVIDERS: PCP Physician Assistant; Visit Provider Surgery
DX: R10.9 Unspecified abdominal pain (principal); K80.20 Calculus of gallbladder without cholecystitis without obstruction; E11.9 Type 2 diabetes mellitus without complications; E78.5 Hyperlipidemia, unspecified; I10 Essential (primary) hypertension; E66.3 Overweight; K91.2 Postsurgical malabsorption, not elsewhere classified; K85.10 Biliary acute pancreatitis without necrosis or infection; Z90.3 Acquired absence of stomach [part of]; Z98.890 Other specified postprocedural states; Z87.19 Personal history of other diseases of the digestive system; R79.89 Other specified abnormal findings of blood chemistry; Z90.49 Acquired absence of other specified parts of digestive tract
CPT/HCPCS: 36415; 80053; 81003; 85025

== ENCOUNTER 2023-03-05 08:50 | Outpatient (AMB) | payer MEDICARE, SELFPAY ==
--- NOTE | 2023-03-05 08:56 | A.OFFVIS_ITS ---
Intake Vital Signs 03/05/23 09:02 Height 6 ft 5 in Weight 228 lb 13.437 oz BMI 27.1 BP 127/63 Blood Pressure Location Rt brachial Pulse 76 Pulse Source Pulse Oximeter Temp 95.8 F L Temp Source Tympanic Pulse Oximetry (%) 99 Oxygen Delivery Method Room Air Intake Visit Reasons: post op Allergies No Known Allergies [No Known Allergies*] Allergy (Verified 02/28/23 11:46) HPI HPI Comments History of Present Illness Details The patient is a pleasant 68-year-old male who returns to the office today in follow-up for his panniculectomy performed on 08/09/2022. He additionally has a history of sleeve gastrectomy performed on 07/04/2021 with HHR. At his last office visit, he was having significant epigastric/upper abdominal pain and was referred to the emergency department and worked up. He was found to have cholelithiasis and peripancreatic inflammation consistent with gallstone pancreatitis. He underwent laparoscopic cholecystectomy 02/27/23 for gallstones and biliary pancreatitis. His RENALDO drain left in Morison's pouch is drain approximately 20 cc over the past 2 days of predominantly serous, non bilious, nonbloody, non purulence drainage. He otherwise reports he is doing well, tolerating his diet and being active walking. He noted that he is pleased with his postoperative progress with both bariatric surgery and his cholecystectomy and reached his goal weight of 224 lb today. He denies interval change with his medicines or health issues. [facility] Medical History (Updated 02/28/23 @ 07:00 by Riley Shannon MD, FACS, [facility]) Hx of panniculitis Postgastrectomy malabsorption Diastolic dysfunction Steatosis, liver BMI 33.0-33.9,adult Lumbar disc disease Arthritis Elevated cholesterol Vitamin D deficiency Migraines DJD (degenerative joint disease) Obesity (BMI 30.0-34.9) Tendinopathy of left shoulder Colon cancer screening Surgical History Hx laparoscopic cholecystectomy S/P laparoscopic sleeve gastrectomy History of repair of hiatal hernia Hx of tooth extraction H/O colonoscopy Hx of arthroscopic knee surgery Rupture of right patellar tendon Hernia Family History Father Diabetes Heart problem Mother Breast cancer Diverticulitis Social History Household Members: Spouse Housing: House Are you a primary college and career counselor to a significant other at home: No Do you presently have visiting nurse or other home services: No Alcohol intake: current Alcohol intake frequency: holidays/special occasions only Comment: none Patient Tobacco Use Status: Former Tobacco user Quit Date: ~age 26 Tobacco use type: Cigarette Years Smoked: 10 e-Cigarette/Vaping Use: Never Used Second Hand Smoke Exposure: No Advance Directives Date on File: 07/04/21 service: No Current occupational status: retired Cognitive needs: No Hearing needs: No Vision needs: Yes Review of Systems Const All systems reviewed & are unremarkable except as noted in HPI and below Physical Exam Vital Signs: Last Vital Signs Temp 95.8 F L 03/05/23 09:02 Pulse 76 03/05/23 09:02 BP 127/63 03/05/23 09:02 Pulse Ox 99 03/05/23 09:02 Oxygen Delivery Method Room Air 03/05/23 09:02 BMI result Body Mass Index 27.1 On exam, he is afebrile He is anicteric He is in good spirits He is having no respiratory difficulty Abdomen is soft with no tenderness, his Band-Aids were removed and Steri-Strips are in place. Predominantly serous/sanguinous drainage, less than 20 cc is present and the bulb over the past couple days per the patient. The retaining suture was cut and the drain removed without difficulty Results Reviewed Results Reviewed: Pathology demonstrating chronic calculous cholecystitis was disclosed to the patient Labs from yesterday, 03/04/2023 were discussed with the patient Hemoglobin stable at 15.2, WBC 8.0, platelet count 301 K BUN 10, creatinine 0.75, electrolytes within normal parameters LFTs show a slight elevation of ALT at 73 and total bilirubin, AST and alkaline phosphatase of normalized. Assessment & Plan Assessment & Plan (1) Cholelithiases: Code(s): K80.20 - Calculus of gallbladder without cholecystitis without obstruction (2) DMII (diabetes mellitus, type 2): Code(s): E11.9 - Type 2 diabetes mellitus without complications Qualifiers: Diabetes mellitus skilled nursing insulin use: without exterminator use Diabetes mellitus complication status: without complication Qualified Code(s): E11.9 - Type 2 diabetes mellitus without complications (3) HLD (hyperlipidemia): Code(s): E78.5 - Hyperlipidemia, unspecified Qualifiers: Hyperlipidemia type: mixed hyperlipidemia Qualified Code(s): E78.2 - Mixed hyperlipidemia (4) HTN (hypertension): Code(s): I10 - Essential (primary) hypertension Qualifiers: Hypertension type: primary hypertension Qualified Code(s): I10 - Essential (primary) hypertension (5) Overweight (BMI 25.0-29.9): Code(s): E66.3 - Overweight (6) History of repair of hiatal hernia: Comment: 07/04/21 Code(s): Z98.890 - Other specified postprocedural states; Z87.19 - Personal history of other diseases of the digestive system Plan Instructions regarding diet and activity reviewed and apparently understood. Both post cholecystectomy and post bariatric low-fat, high-protein diet and abstinence from alcohol were discussed. The patient will avoid lifting more than 20 lb until mid March, and states he has follow-up with the PAs regarding his bariatric follow-up for his sleeve gastrectomy and panniculectomy. Patient will follow-up p.r.n. and is discharged from my care at this time. Coding Level of Care Code Global (60198) Diagnoses Cholelithiases K80.20 Type 2 diabetes mellitus without complication, without long-term current use of insulin E11.9 Diabetes mellitus exterminator insulin use: without skilled nursing use Diabetes mellitus complication status: without complication Mixed hyperlipidemia E78.2 Hyperlipidemia type: mixed hyperlipidemia Primary hypertension I10 Hypertension type: primary hypertension Overweight (BMI 25.0-29.9) E66.3 History of repair of hiatal hernia Z98.890; Z87.19
[2023-03-05 09:02] VITALS: BP 127/63; PULSE 76; TEMP 35.4; O2SAT 99; BMI 27.1
== END 2023-03-05 09:22 | disposition home or self-care (01) ==
PROVIDERS: PCP Physician Assistant; Visit Provider Surgery
DX: K80.20 Calculus of gallbladder without cholecystitis without obstruction (principal); E11.9 Type 2 diabetes mellitus without complications; E78.2 Mixed hyperlipidemia; I10 Essential (primary) hypertension; E66.3 Overweight; Z98.890 Other specified postprocedural states; Z87.19 Personal history of other diseases of the digestive system
CPT/HCPCS: 99024

== ENCOUNTER → 2023-03-05 08:50 | Outpatient (BNVA) | payer MEDICARE, SELFPAY | PROVIDERS: PCP Physician Assistant; Visit Provider Surgery | DX: K80.20 Calculus of gallbladder without cholecystitis without obstruction (principal); E11.9 Type 2 diabetes mellitus without complications; E78.2 Mixed hyperlipidemia; E66.3 Overweight; I10 Essential (primary) hypertension; Z98.890 Other specified postprocedural states; Z87.19 Personal history of other diseases of the digestive system; Z68.27 Body mass index [BMI] 27.0-27.9, adult | CPT/HCPCS: 99212 ==

== ENCOUNTER 2023-03-28 13:00 | Outpatient (AMB) | payer MEDICARE, SELFPAY ==
--- NOTE | 2023-03-28 13:02 | MHC.PC.OV ---
Vital Signs 03/28/23 13:03 Height 6 ft 5 in Weight 233 lb BMI 27.6 BP 138/76 Blood Pressure Location Lt brachial Position Sitting Respiration 17 Pulse 78 Pulse Source Palpation Intake Visit Reasons: HDF/TCM Pipe Jeeper Required: No Accompanied by: Self / Same As Patient Allergies No Known Allergies [No Known Allergies*] Allergy (Verified 03/28/23 13:18) Medication List - Last Reconciled 03/28/23 by Jorge Parikh PA-C No Known Home Meds Tobacco use date assessed: 03/28/23 Fall risk assessment: No Falls in past year Last assessed Fall Risk: 03/28/23 Dental Screening Dental Screen Date: 03/28/23 Did you have a dental visit in the last 12 months?: Yes Did you have a dental problem in the last 6 months where you did not have access to dental care?: No Was dental information given to patient?: Patient has dentist HPI HDF/TCM HPI Details Patient is a 68-year-old male here today for hospital discharge follow-up. ?Patient has a past medical history significant for HTN, obesity and ho type 2 diabetes, s/p bariatrics sugery. Patient presents to the [facility] with acute abdominal pain. Found to have elevated liver enzymes and cholecystitis on CT of abdomen. He underwent a cholecystectomy February of 2023. Currently doing much better. Has no abdominal pain. Bowel movements have been regular. He does for her recent episode while at the casino a having a brief episode of disorientation and word-finding.? TIA. At this time off of all diabetic, cholesterol and blood pressure medications since his bariatric surgery. He will monitor for any similar events. Will consider brain imaging and carotid ultrasounds. TCM TCM Information Date of Discharge 03/01/23 Discharged From [facility] Medical History Hx of panniculitis Postgastrectomy malabsorption Diastolic dysfunction Steatosis, liver BMI 33.0-33.9,adult Lumbar disc disease Arthritis Elevated cholesterol Vitamin D deficiency Migraines DJD (degenerative joint disease) Obesity (BMI 30.0-34.9) Tendinopathy of left shoulder Colon cancer screening Surgical History Hx laparoscopic cholecystectomy S/P laparoscopic sleeve gastrectomy History of repair of hiatal hernia Hx of tooth extraction H/O colonoscopy Hx of arthroscopic knee surgery Rupture of right patellar tendon Hernia Family History Father Diabetes Heart problem Mother Breast cancer Diverticulitis Social History Household Members: Spouse Housing: House Are you a primary senior caregiver to a significant other at home: No Do you presently have visiting nurse or other home services: No Alcohol intake: current Alcohol intake frequency: holidays/special occasions only Comment: none Patient Tobacco Use Status: Former Tobacco user Quit Date: ~age 26 Tobacco use type: Cigarette Years Smoked: 10 e-Cigarette/Vaping Use: Never Used Second Hand Smoke Exposure: No Advance Directives Date on File: 07/04/21 service: No Current occupational status: retired Cognitive needs: No Hearing needs: No Vision needs: Yes Questionnaire PHQ-9 Over the last 2 weeks, how often have you been bothered by any of the following problems? 1. Little interest or pleasure in doing things: not at all 2. Feeling down, depressed, or hopeless: not at all 3. Trouble falling or staying asleep, or sleeping too much: not at all 4. Feeling tired or having little energy: not at all 5. Poor appetite or overeating: not at all 6. Feeling bad about yourself - or that you are a failure or have let yourself or your family down: not at all 7. Trouble concentrating on things, such as reading the newspaper or watching television: not at all 8. Moving or speaking so slowly that other people could have noticed. Or the opposite - being so fidgety or restless that you have been moving around a lot more than usual: not at all 9. Thoughts that you would be better off or of hurting yourself in some way: not at all Total score: 0 Depression Screening Interpretation: Negative Depression Screening Done: Yes 74204 - PHQ-9 Billing: Yes Source: Developed by Drs. Brooks Palacios, Aurora Shields, Chris Foster and colleagues, with an educational lolly from [employer]. Thrive Questionnaire Date Thrive assessed: 03/28/23 I am a: Patient What is your living situation today?: I have a steady place to live Within the past 12 months, did the food you bought not last and you didn't have the money to get more?: Never true Within the past 12 months, did you worry whether your food would run out before you got money to buy more?: Never true Do you have trouble paying for medicines?: No Do you have trouble getting transportation to medical appointments?: No Do you have trouble paying your heating and electricity bill?: No Do you have trouble taking care of your child, family member or friend?: No Do you have trouble with day-to-day activities such as bathing, preparing meals, shopping, managing finances, etc.?: No Are you currently unemployed and looking for a job?: No Are you interested in more education?: No Please select the resources that you would like help with: None Currently or been in a relationship where the following occur: no concerns reported AUDIT C Alcohol Use Questionnaire (AUDIT-C) 1. How often do you have a drink containing alcohol?: Never 3. How often do you have six or more drinks on one occasion?: Never Total Score: 0 RAIN-7 AMB Questionnaire RAIN-7 Date RAIN - 7 assessed: 03/28/23 Feeling nervous, anxious, or on edge: 0 = Not at all Not being able to stop or control worryin = Not at all Worrying too much about different things: 0 = Not at all Trouble relaxin = Not at all Being so restless that it is hard to sit still: 0 = Not at all Becoming easily annoyed or irritable: 0 = Not at all Feeling afraid as if something awful might happen: 0 = Not at all Total RAIN-7 score (0-4 normal; 5-9 mild; 10-14 moderate; 15-21 severe): 0 Source: Developed by Drs. Brooks Palacios, Aurora Shields, Chris Foster and colleagues, with an educational lolly from [employer]. RAIN-7 Assessment Billing RAIN-7 Assessment Tool: RAIN-7 Assessment 06888 Review of Systems Const Denies headache(s) Eyes Denies loss of vision ENT Denies vertigo, Denies dizziness, Denies headache(s) and Denies sore throat Card Denies chest pain, Denies leg edema and Denies lightheadedness Resp Denies cough, Denies hemoptysis and Denies wheezing GI Denies abdominal pain, Denies melena, Denies constipation, Denies diarrhea and Denies vomiting Denies dysuria, Denies urinary frequency and Denies urinary urgency Musc Denies arthralgias, Denies joint swelling, Denies numbness and Denies tingling Neuro Denies Abnormal speech present, Denies behavioral changes, Denies vertigo, Denies dizziness, Denies headache(s), Denies loss of vision, Denies memory loss, Denies numbness and Denies tingling Psych Denies anxiety, Denies behavioral changes, Denies depression, Denies memory loss and Denies panic attacks Eamon/Lymph Denies easy bleeding and Denies easy bruising Aller/Immun Denies wheezing Physical exam (Primary Care) Vital Signs: Last Vital Signs Pulse 78 03/28/23 13:03 Resp 17 03/28/23 13:03 BP 138/76 03/28/23 13:03 BMI result Body Mass Index 27.6 Tobacco/Smoking Status: Tobacco use Status Tobacco use date assessed 03/28/23 03/28/23 13:10 Patient Tobacco Use Status Former Tobacco user 03/28/23 13:05 Tobacco use type Cigarette 03/28/23 13:05 e-Cigarette/Vaping Use Never Used 03/28/23 13:05 PHQ-9: PHQ-9 Score PHQ-9: Total score 0 03/28/23 13:10 Depression Screening Interpretation: Negative Thrive Assessment: Date of Thrive Assessment Date Thrive assessed 03/28/23 03/28/23 13:05 Currently or been in a relationship where the following occur: no concerns reported Const General: healthy appearing, no acute distress, alert and awake Nutritional Appearance: well nourished Orientation/consciousness: oriented to person, oriented to place and oriented to time HENMT Ears: TM's normal bilaterally General nose exam: Normal nasal mucous membranes and turbinates present Eyes Conjunctivae: conjunctivae normal Sclerae: sclerae normal Pupils: Equal, round and reactive pupils present Neck Neck: Yes no lymphadenopathy and Yes no JVD Thyroid: Thyroid normal Carotids: no bruits Resp Effort & Inspection: normal respiratory effort and not tachypneic Auscultation: no crackles, no rales, no rhonchi and no wheezes Cardio Rate: regular rate Rhythm: regular rhythm Heart sounds: no murmurs and normal S1 and S2 GI Palpation (GI): Soft to palpation, nontender, no hepatomegaly and no splenomegaly Auscultation: normal bowel sounds Skin General skin exam: no rashes or lesions noted and dry skin Neuro General: oriented to person, oriented to place and oriented to time Cranial nerves: Yes Equal, round and reactive pupils present Speech: No Abnormal speech present Gait exam (Neuro): Normal gait present Motor exam (neuro): no tremor noted Extrem Right upper extremity: full ROM Left upper extremity: full ROM Right lower extremity: full ROM; no edema Left lower extremity: full ROM; no edema Psych Mental Status: mental status grossly normal Speech and movement: Normal speech and movement present Affect: normal affect Attitude: cooperative Thought process: Normal thought process present Assessment and Plan Assessment & Plan (1) S/P laparoscopic cholecystectomy: Code(s): Z90.49 - Acquired absence of other specified parts of digestive tract Plan: Patient is status post cholecystectomy. Complicated by abdominal wall seroma that needed drainage. Currently doing much better and anticipates returning to the gym. Reviewed all hospital documents and lab results. Orders: Orders Microalbumin, Random (w Creat) Today E11.9 - Type 2 diabetes mellitus without complications Comprehensive [place]. Panel Fast Today E11.9 - Type 2 diabetes mellitus without complications Prostate Specific Antigen Scr Today E11.9 - Type 2 diabetes mellitus without complications, Z12.5 - Encounter for screening for malignant neoplasm of prostate Lipid Panel Today E78.2 - Mixed hyperlipidemia Coding Level of Care Code Est Pt Level 4 (02776) Diagnoses S/P laparoscopic cholecystectomy Z90.49 Additional Codes RAIN-7 Assessment Billing - RAIN-7 Assessment Tool: RAIN-7 Assessment 40979 ([id number])
[2023-03-28 13:03] VITALS: BP 138/76; PULSE 78; RESP 17; BMI 27.6
== END 2023-03-28 13:31 | disposition home or self-care (01) ==
PROVIDERS: PCP Physician Assistant; Visit Provider Physician Assistant
DX: E11.9 Type 2 diabetes mellitus without complications (principal); Z90.49 Acquired absence of other specified parts of digestive tract
CPT/HCPCS: 99214

== ENCOUNTER 2023-04-15 16:00 | Outpatient (AMB) | payer MEDICARE, SELFPAY ==
--- NOTE | 2023-04-15 15:40 | A.OFFVIS_ITS ---
Intake VS Expanded 04/15/23 15:42 Height 6 ft 5 in Weight 221 lb BMI 26.2 Intake Visit Reasons: F/U SWL Allergies No Known Allergies [No Known Allergies*] Allergy (Verified 03/28/23 13:18) HPI HPI Comments History of Present Illness Details Patient is a pleasant 68-year-old male returns to the office today in follow-up. He has a history of sleeve gastrectomy performed 07/14/2021, panniculectomy performed 08/09/2022 and laparoscopic cholecystectomy performed 02/27/2023. His weight today is 221 pounds with a BMI of 26.2. He feels great. Taking a celebrate mvi daily. Meal plan: 5 am RTD Premier protein 9 am 2 eggs, 1 piece of toast 230 pm fit crunch bar 5 pm 6 forks protein and 6 of veg SF jello pudding cup banana -yellow/yellow-speckles. Drinkin oz water Exercise plan: 4 days per week gym rowing 45 min, 300 calories weights PFSH Medical History Hx of panniculitis Postgastrectomy malabsorption Diastolic dysfunction Steatosis, liver BMI 33.0-33.9,adult Lumbar disc disease Arthritis Elevated cholesterol Vitamin D deficiency Migraines DJD (degenerative joint disease) Obesity (BMI 30.0-34.9) Tendinopathy of left shoulder Colon cancer screening Surgical History Hx laparoscopic cholecystectomy S/P laparoscopic sleeve gastrectomy History of repair of hiatal hernia Hx of tooth extraction H/O colonoscopy Hx of arthroscopic knee surgery Rupture of right patellar tendon Hernia Family History Father Diabetes Heart problem Mother Breast cancer Diverticulitis Social History Household Members: Spouse Housing: House Are you a primary career placement services counselor to a significant other at home: No Do you presently have visiting nurse or other home services: No Alcohol intake: current Alcohol intake frequency: holidays/special occasions only Comment: none Patient Tobacco Use Status: Former Tobacco user Quit Date: ~age 26 Tobacco use type: Cigarette Years Smoked: 10 e-Cigarette/Vaping Use: Never Used Second Hand Smoke Exposure: No Advance Directives Date on File: 07/04/21 service: No Current occupational status: retired Cognitive needs: No Hearing needs: No Vision needs: Yes Assessment & Plan Assessment & Plan (1) S/P laparoscopic sleeve gastrectomy: Comment: 07/04/21 Code(s): Z98.84 - Bariatric surgery status Plan: Overall, the patient is doing very well, maintaining a healthy weight. He will return to the gym now that he is approximately 6 weeks post laparoscopic cholecystectomy. We will have him return to the office in person in June for his 2 year follow-up from his sleeve gastrectomy and check blood work at that time. He will call the office sooner with any questions or concerns. Telehealth Telehealth Location of provider rendering services: practice address Location of patient: address on file Patient Identification confirmed using: Name, : Yes Telehealth method: voice only Patient verbally consented to treatment: Yes Patient verbally consented to billing insurance company: Yes Patient informed of any privacy concerns related to visit: Yes Minutes spent on Phone/Video with Pt.: 15 Coding Level of Care Code Tele Est Pt Level 3 (59851) Diagnoses S/P laparoscopic sleeve gastrectomy Z98.84 Time Spent (min) 20
[2023-04-15 15:42] VITALS: BMI 26.2
== END 2023-04-15 16:00 | disposition home or self-care (01) ==
LOC: HO.HBS 16:00
PROVIDERS: PCP Physician Assistant; Visit Provider Physician Assistant Surgical
DX: Z90.49 Acquired absence of other specified parts of digestive tract (principal); Z98.84 Bariatric surgery status; Z68.26 Body mass index [BMI] 26.0-26.9, adult
CPT/HCPCS: 99024

== ENCOUNTER → 2023-04-15 16:00 | Outpatient (BNVA) | payer MEDICARE, SELFPAY | PROVIDERS: PCP Physician Assistant; Visit Provider Physician Assistant Surgical | DX: Z98.84 Bariatric surgery status (principal) | CPT/HCPCS: 99212 ==

== ENCOUNTER 2023-05-21 05:58 | Outpatient (REF) | payer MEDICARE, SELFPAY ==
[2023-05-21 08:17] LABS: Alanine Aminotransferase 28 U/L (0-40); Albumin Level 4.1 g/dL (3.5-5.0); Alkaline Phosphatase 59 U/L (39-117); Anion Gap 10 (12-20); Aspartate Amino Transferase 20 U/L (5-37); Bilirubin Total 0.7 mg/dL (0.0-1.0); Blood Urea Nitrogen 13 mg/dL (9-16); Calcium 10.1 mg/dL (8.4-10.2); Carbon Dioxide 31 mmol/L (22-29); Chloride 105 mmol/L (96-108); Cholesterol 187 mg/dL (<200); Estimated Glomerular Filt Rate > 60; Glucose Fasting 96 mg/dL (60-99); HDL Cholesterol 57 mg/dL (>40); LDL Cholesterol Calculated 110 mg/dL (<100); Potassium 4.3 mmol/L (3.3-5.1); Sodium 142 mmol/L (135-145); Total Protein 6.7 g/dL (6.5-8.0); Triglycerides 102 mg/dL (<150)
[2023-05-21 08:32] LABS: Prostate Specific Antigen Scr 0.35 ng/mL (<0.05-4.0)
[2023-05-21 09:04] LABS: Creatinine Urine 40.34 mg/dL; Microalbumin Urine < 5.0 mg/L
== END 2023-05-21 05:59 | disposition home or self-care (01) ==
LOC: HO.LAB 05:58
PROVIDERS: Absent Provider Physician Assistant Surgical; PCP Physician Assistant; Visit Provider Physician Assistant
DX: E11.9 Type 2 diabetes mellitus without complications (principal); E78.2 Mixed hyperlipidemia; Z12.5 Encounter for screening for malignant neoplasm of prostate
CPT/HCPCS: 36415; 80053; 80061; 82043; 82570; 84153

== ENCOUNTER 2023-05-27 08:20 | Outpatient (AMB) | payer MEDICARE, SELFPAY ==
--- NOTE | 2023-05-27 08:24 | MHC.PC.OV ---
Vital Signs 05/27/23 08:25 Height 6 ft 5 in Weight 240 lb BMI 28.5 BP 146/84 H Blood Pressure Location Lt brachial Position Sitting Pulse 64 Pulse Source Pulse Oximeter Pulse Oximetry (%) 99 Oxygen Delivery Method Room Air Intake Visit Reasons: f/u LABs Intake Note: Patient here for a follow up labs Bath Tester Required: No Accompanied by: Self / Same As Patient Allergies No Known Allergies [No Known Allergies*] Allergy (Verified 05/27/23 08:38) Medication List - Last Reconciled 05/27/23 by Jorge Parikh PA-C No Known Home Meds Tobacco use date assessed: 05/27/23 Fall risk assessment: No Falls in past year Last assessed Fall Risk: 05/27/23 Dental Screening Dental Screen Date: 05/27/23 Did you have a dental visit in the last 12 months?: No Did you have a dental problem in the last 6 months where you did not have access to dental care?: No Was dental information given to patient?: Patient has dentist HPI f/u LABs HPI Details Patient is a 68-year-old male here today for a follow-up visit ?Patient has a past medical history significant for HTN, obesity and ho type 2 diabetes, s/p bariatrics sugery. .. Type 2 diabetes: Since his bariatric surgery has been off of medication in his diabetes has been diet controlled .. Hypertension: Blood pressure today in office slightly elevated. He reports he has been under lot of stress as of lately, also had 2 cups of coffee this morning before his appointment. Has been off of blood pressure medications since his bariatric surgery and has been able to maintain decent blood pressure readings. .. Hyperlipidemia: Most recent lipid panel showing appropriate total cholesterol and LDL. Has been off of all cholesterol medications since his bariatric surgery. Continues to go to the gym 3 times a week. Laboratory Tests 01/02/22 02/27/23 02/28/23 06:26 05:09 06:00 RBC 5.42 Hgb Creatinine 0.87 Random Glucose AST ALT 143 H 93 H Cholesterol 175 LDL Cholesterol, C alc PSA Screen 03/01/23 03/01/23 03/04/23 06:08 06:08 06:14 RBC 4.44 L 5.30 Hgb Creatinine Random Glucose 119 H AST ALT Cholesterol LDL Cholesterol, C alc PSA Screen 03/04/23 03/04/23 05/21/23 06:14 06:14 06:16 RBC Hgb 15.2 Creatinine 0.75 0.74 Random Glucose AST 20 ALT 73 H 28 Cholesterol 187 LDL Cholesterol, C alc 110 H PSA Screen 0.35 PFSH Medical History Hx of panniculitis Postgastrectomy malabsorption Diastolic dysfunction Steatosis, liver BMI 33.0-33.9,adult Lumbar disc disease Arthritis Elevated cholesterol Vitamin D deficiency Migraines DJD (degenerative joint disease) Obesity (BMI 30.0-34.9) Tendinopathy of left shoulder Colon cancer screening Surgical History Hx laparoscopic cholecystectomy S/P laparoscopic sleeve gastrectomy History of repair of hiatal hernia Hx of tooth extraction H/O colonoscopy Hx of arthroscopic knee surgery Rupture of right patellar tendon Hernia Family History Father Diabetes Heart problem Mother Breast cancer Diverticulitis Social History Household Members: Spouse Housing: House Are you a primary health careers instructor to a significant other at home: No Do you presently have visiting nurse or other home services: No Alcohol intake: current Alcohol intake frequency: holidays/special occasions only Comment: none Patient Tobacco Use Status: Former Tobacco user Quit Date: ~age 26 Tobacco use type: Cigarette Years Smoked: 10 e-Cigarette/Vaping Use: Never Used Second Hand Smoke Exposure: No Advance Directives Date on File: 07/04/21 service: No Current occupational status: retired Cognitive needs: No Hearing needs: No Vision needs: Yes Questionnaire PHQ-9 Over the last 2 weeks, how often have you been bothered by any of the following problems? 1. Little interest or pleasure in doing things: not at all 2. Feeling down, depressed, or hopeless: not at all 3. Trouble falling or staying asleep, or sleeping too much: not at all 4. Feeling tired or having little energy: not at all 5. Poor appetite or overeating: not at all 6. Feeling bad about yourself - or that you are a failure or have let yourself or your family down: not at all 7. Trouble concentrating on things, such as reading the newspaper or watching television: not at all 8. Moving or speaking so slowly that other people could have noticed. Or the opposite - being so fidgety or restless that you have been moving around a lot more than usual: not at all 9. Thoughts that you would be better off or of hurting yourself in some way: not at all Total score: 0 Depression Screening Interpretation: Negative Depression Screening Done: Yes 59920 - PHQ-9 Billing: Yes Source: Developed by Drs. Brooks Palacios, Aurora Shields, Chris Foster and colleagues, with an educational lolly from [employer]. Thrive Questionnaire Date Thrive assessed: 05/27/23 I am a: Patient What is your living situation today?: I have a steady place to live Within the past 12 months, did the food you bought not last and you didn't have the money to get more?: Never true Within the past 12 months, did you worry whether your food would run out before you got money to buy more?: Never true Do you have trouble paying for medicines?: No Do you have trouble getting transportation to medical appointments?: No Do you have trouble paying your heating and electricity bill?: No Do you have trouble taking care of your child, family member or friend?: No Do you have trouble with day-to-day activities such as bathing, preparing meals, shopping, managing finances, etc.?: No Are you currently unemployed and looking for a job?: No Are you interested in more education?: No Please select the resources that you would like help with: None Currently or been in a relationship where the following occur: no concerns reported THRIVE Score: 0 AUDIT C Alcohol Use Questionnaire (AUDIT-C) 1. How often do you have a drink containing alcohol?: Never Total Score: 0 RAIN-7 AMB Questionnaire RAIN-7 Date RAIN - 7 assessed: 05/27/23 Feeling nervous, anxious, or on edge: 0 = Not at all Not being able to stop or control worryin = Not at all Worrying too much about different things: 0 = Not at all Trouble relaxin = Not at all Being so restless that it is hard to sit still: 0 = Not at all Becoming easily annoyed or irritable: 0 = Not at all Feeling afraid as if something awful might happen: 0 = Not at all Total RAIN-7 score (0-4 normal; 5-9 mild; 10-14 moderate; 15-21 severe): 0 Source: Developed by Drs. Brooks Palacios, Aurora Shields, Chris Foster and colleagues, with an educational lolly from [employer]. RAIN-7 Assessment Billing RAIN-7 Assessment Tool: RAIN-7 Assessment 38241 Review of Systems Const Denies headache(s) Eyes Denies loss of vision ENT Denies vertigo, Denies dizziness, Denies headache(s) and Denies sore throat Card Denies chest pain, Denies leg edema and Denies lightheadedness Resp Denies cough, Denies hemoptysis and Denies wheezing GI Denies abdominal pain, Denies melena, Denies constipation, Denies diarrhea and Denies vomiting Denies dysuria, Denies urinary frequency and Denies urinary urgency Musc Denies arthralgias, Denies joint swelling, Denies numbness and Denies tingling Neuro Denies Abnormal speech present, Denies behavioral changes, Denies vertigo, Denies dizziness, Denies headache(s), Denies loss of vision, Denies memory loss, Denies numbness and Denies tingling Psych Denies anxiety, Denies behavioral changes, Denies depression, Denies memory loss and Denies panic attacks Eamon/Lymph Denies easy bleeding and Denies easy bruising Aller/Immun Denies wheezing Physical exam (Primary Care) Vital Signs: Last Vital Signs Pulse 64 05/27/23 08:25 BP 146/84 H 05/27/23 08:25 Pulse Ox 99 05/27/23 08:25 Oxygen Delivery Method Room Air 05/27/23 08:25 BMI result Body Mass Index 28.5 Tobacco/Smoking Status: Tobacco use Status Tobacco use date assessed 05/27/23 05/27/23 08:32 Patient Tobacco Use Status Former Tobacco user 05/27/23 08:24 Tobacco use type Cigarette 05/27/23 08:24 e-Cigarette/Vaping Use Never Used 05/27/23 08:24 PHQ-9: PHQ-9 Score PHQ-9: Total score 0 05/27/23 08:32 Depression Screening Interpretation: Negative Thrive Assessment: Date of Thrive Assessment Date Thrive assessed 05/27/23 05/27/23 08:32 Currently or been in a relationship where the following occur: no concerns reported Const General: healthy appearing, no acute distress, alert and awake Nutritional Appearance: well nourished Orientation/consciousness: oriented to person, oriented to place and oriented to time HENMT Ears: TM's normal bilaterally General nose exam: Normal nasal mucous membranes and turbinates present Eyes Conjunctivae: conjunctivae normal Sclerae: sclerae normal Pupils: Equal, round and reactive pupils present Neck Neck: Yes no lymphadenopathy and Yes no JVD Thyroid: Thyroid normal Carotids: no bruits Resp Effort & Inspection: normal respiratory effort and not tachypneic Auscultation: no crackles, no rales, no rhonchi and no wheezes Cardio Rate: regular rate Rhythm: regular rhythm Heart sounds: no murmurs and normal S1 and S2 GI Palpation (GI): Soft to palpation, nontender, no hepatomegaly and no splenomegaly Auscultation: normal bowel sounds Skin General skin exam: no rashes or lesions noted and dry skin Neuro General: oriented to person, oriented to place and oriented to time Cranial nerves: Yes Equal, round and reactive pupils present Speech: No Abnormal speech present Gait exam (Neuro): Normal gait present Motor exam (neuro): no tremor noted Extrem Right upper extremity: full ROM Left upper extremity: full ROM Right lower extremity: full ROM; no edema Left lower extremity: full ROM; no edema Psych Mental Status: mental status grossly normal Speech and movement: Normal speech and movement present Affect: normal affect Attitude: cooperative Thought process: Normal thought process present Assessment and Plan Assessment & Plan (1) HLD (hyperlipidemia): Code(s): E78.5 - Hyperlipidemia, unspecified Qualifiers: Hyperlipidemia type: mixed hyperlipidemia Qualified Code(s): E78.2 - Mixed hyperlipidemia Plan: Has history hyperlipidemia. Was on statin therapy though has been taken off since bariatric surgery. Most recent LDL has been acceptable. Will continue to check fasting lipid panel. Goal LDL to remain below 130 (2) S/P laparoscopic sleeve gastrectomy: Comment: 07/04/21 Code(s): Z98.84 - Bariatric surgery status Plan: Patient doing very well after his is bariatric surgery continues to maintain weight loss. Going to the gym 3 days a week. He feels well and has a lot more energy. (3) DMII (diabetes mellitus, type 2): Code(s): E11.9 - Type 2 diabetes mellitus without complications Qualifiers: Diabetes mellitus terminal operations manager insulin use: without terminal operations manager use Diabetes mellitus complication status: without complication Qualified Code(s): E11.9 - Type 2 diabetes mellitus without complications Plan: Has resolved since bariatric surgery. Most recent fasting blood sugar 96. Now his type 2 diabetes lifestyle / diet managed. Goal A1c is to remain below 6.5 (4) HTN (hypertension): Code(s): I10 - Essential (primary) hypertension Qualifiers: Hypertension type: primary hypertension Qualified Code(s): I10 - Essential (primary) hypertension Plan: Patient's blood pressure slightly elevated today in office. He reports he has been under a lot of stress at work and had 2 cups of coffee this morning. Will hold off on starting new blood pressure medication. Would like to continue monitoring Goal blood pressures to remain below 140/90 Orders: Orders Lipid Panel 6 Months E78.2 - Mixed hyperlipidemia Comprehensive [place]. Panel Fast 6 Months E11.9 - Type 2 diabetes mellitus without complications Microalbumin, Random (w Creat) 6 Months I10 - Essential (primary) hypertension Hemoglobin A1c 6 Months E11.9 - Type 2 diabetes mellitus without complications Coding Level of Care Code Est Pt Level 4 (73093) Diagnoses Mixed hyperlipidemia E78.2 Hyperlipidemia type: mixed hyperlipidemia S/P laparoscopic sleeve gastrectomy Z98.84 Type 2 diabetes mellitus without complication, without long-term current use of insulin E11.9 Diabetes mellitus terminal operations manager insulin use: without terminal operations manager use Diabetes mellitus complication status: without complication Primary hypertension I10 Hypertension type: primary hypertension Additional Codes RAIN-7 Assessment Billing - RAIN-7 Assessment Tool: RAIN-7 Assessment 53259 ([id number])
[2023-05-27 08:25] VITALS: BP 146/84; PULSE 64; O2SAT 99; BMI 28.5
== END 2023-05-27 08:51 | disposition home or self-care (01) ==
PROVIDERS: PCP Physician Assistant; Visit Provider Physician Assistant
DX: E78.2 Mixed hyperlipidemia (principal); Z98.84 Bariatric surgery status; E11.9 Type 2 diabetes mellitus without complications; I10 Essential (primary) hypertension
CPT/HCPCS: 99214

== ENCOUNTER 2023-06-18 07:59 | Outpatient (AMB) | payer MEDICARE, SELFPAY ==
--- NOTE | 2023-06-18 08:06 | AM.OFFWIN_ITS ---
Intake Vital Signs 06/18/23 08:09 Height 6 ft 5 in Weight 242 lb BMI 28.7 BP 120/64 Blood Pressure Location Lt brachial Position Sitting Pulse 72 Pulse Source Pulse Oximeter Pulse Oximetry (%) 95 Oxygen Delivery Method Room Air Intake Visit Reasons: back pain Patient Tobacco Use Status: Former Tobacco user Quit Date: ~age 26 Allergies No Known Allergies [No Known Allergies*] Allergy (Verified 06/18/23 08:09) Medication List - Last Reconciled 06/18/23 by SAVAGE Winston No Known Home Meds HPI HPI Comments History of Present Illness Details Here for back pain When bending over walking dog, the dog pulled to run away. Creating acute on chronic pain. This happened about 3 days ago. Known spinal compression previously. Pain is located transverse low back, radiates down posterior right lower leg stopping at knee on Right. Also radiates into R shoulder - this is the arm that was pulled by the dog. Known rotator cuff tear on R. To tx at home, tried heating pad, advil all w/o relief. Worse as day goes on. Reports normal elimination patterns Denies saddle parasthesia, loss of use of ext. Denies red flag signs assoc w back pain PFSH Medical History Hx of panniculitis Postgastrectomy malabsorption Diastolic dysfunction Steatosis, liver BMI 33.0-33.9,adult Lumbar disc disease Arthritis Elevated cholesterol Vitamin D deficiency Migraines DJD (degenerative joint disease) Obesity (BMI 30.0-34.9) Tendinopathy of left shoulder Colon cancer screening Surgical History Hx laparoscopic cholecystectomy S/P laparoscopic sleeve gastrectomy History of repair of hiatal hernia Hx of tooth extraction H/O colonoscopy Hx of arthroscopic knee surgery Rupture of right patellar tendon Hernia Family History Father Diabetes Heart problem Mother Breast cancer Diverticulitis Social History Household Members: Spouse Housing: House Are you a primary intensive care ambulance paramedic to a significant other at home: No Do you presently have visiting nurse or other home services: No Alcohol intake: current Alcohol intake frequency: holidays/special occasions only Comment: none Patient Tobacco Use Status: Former Tobacco user Quit Date: ~age 26 Tobacco use type: Cigarette Years Smoked: 10 e-Cigarette/Vaping Use: Never Used Second Hand Smoke Exposure: No Advance Directives Date on File: 07/04/21 service: No Current occupational status: retired Cognitive needs: No Hearing needs: No Vision needs: Yes Review of Systems Const All systems reviewed & are unremarkable except as noted in HPI and below Physical Exam Vital Signs: Last Vital Signs Pulse 72 06/18/23 08:09 BP 120/64 06/18/23 08:09 Pulse Ox 95 06/18/23 08:09 Oxygen Delivery Method Room Air 06/18/23 08:09 BMI result Body Mass Index 28.7 HEENT Other: awake alert neurovasc intact no focal neuro deficits pain w/ palp over right scap, right anterior shoulder, midline lumbar spine. Paraspinal tenderness and spasm R MAEx4 strength normal tone and reflexes WNL Antalgic gait, favoring Right side Assessment & Plan Assessment & Plan (1) Spasm of muscle of lower back: Comment: caused by dog pulling on leash does have some radicular however exam reassuring plan: meloxicam daily w/ food, avoid other nsaids, ok to take apap 3 gm/day PRN breakthrough pain, muscle relaxer as needed. ok to exercise and move as long as you avoid things that exacerbate. if no better in 2 weeks or worsens, advised to fu with PCP for further mgmt Code(s): M62.830 - Muscle spasm of back Plan: This note is constructed using voice recognition software. While every effort has been made to ensure accuracy in spooler operator, still errors may have been included Sometimes, these errors may affect the content or meaning of the given sentence . Total time spent caring for the patient today was 30 minutes. This includes time spent before the visit reviewing the chart, time spent during the visit, and time spent after the visit on documentation Medications: New meloxicam 7.5 mg PO DAILY 21 tabs 0RF tizanidine (Zanaflex) 4 mg PO TID PRN 15 tabs 0RF muscle spasticity 5 days Coding Level of Care Code Est Pt Level 4 (77580) Diagnoses Spasm of muscle of lower back M62.830
[2023-06-18 08:09] VITALS: BP 120/64; PULSE 72; O2SAT 95; BMI 28.7
== END 2023-06-18 11:49 | disposition home or self-care (01) ==
PROVIDERS: PCP Physician Assistant; Visit Provider Nurse Practitioner Family
DX: M62.830 Muscle spasm of back (principal)
CPT/HCPCS: 99214

== ENCOUNTER 2023-11-06 06:01 | Outpatient (REF) | payer MEDICARE, SELFPAY ==
[2023-11-06 06:18] LABS: MANUAL DIFF FLAG NO
[2023-11-06 07:10] LABS: Basophils Percent Auto 0.7 % (0-2); Eosinophils Absolute Auto 0.1 X10*3/uL (0.0-0.4); Eosinophils Percent Auto 1.8 % (0-4); Hematocrit 46.9 % (42.0-52.0); Hemoglobin 15.8 g/dl (14.0-18.0); Imm Gran Abs Auto 0.01 X10*3/uL (0.00-0.03); Imm Gran Pct Auto 0.2 % (0.0-0.4); Lymphocytes Absolute Auto 1.8 X10*3/uL (1.2-4.9); Mean Corpuscular HGB Conc 33.7 g/dl (31.0-36.0); Mean Corpuscular Hemoglobin 30.5 pg (27.0-33.0); Mean Corpuscular Volume 90.5 fL (80.0-98.0); Mean Platelet Volume 10.6 fL (9.4-12.4); Monocytes Absolute Auto 0.8 X10*3/uL (0.1-1.2); Monocytes Percent Auto 12.3 % (2-11); Neutrophils Absolute Auto 3.4 x10*3/uL (2.0-8.3); Platelet Count 152 X10*3/uL (160-400); Red Blood Count 5.18 X10*6/uL (4.60-5.80); Red Cell Distribution Width 12.6 % (11.0-16.0); White Blood Count 6.1 X10*3/uL (4.8-10.8)
[2023-11-06 07:45] LABS: Alanine Aminotransferase 35 U/L (0-40); Albumin Level 4.1 g/dL (3.5-5.0); Alkaline Phosphatase 56 U/L (39-117); Anion Gap 12 (12-20); Aspartate Amino Transferase 27 U/L (5-37); Bilirubin Direct 0.3 mg/dL (0.0-0.5); Bilirubin Total 0.9 mg/dL (0.0-1.0); Blood Urea Nitrogen 18 mg/dL (9-16); Calcium 9.6 mg/dL (8.4-10.2); Carbon Dioxide 29 mmol/L (22-29); Chloride 103 mmol/L (96-108); Cholesterol 188 mg/dL (<200); Estimated Glomerular Filt Rate > 60; Glucose Random 105 mg/dL (60-115); HDL Cholesterol 51 mg/dL (>40); Iron 156 mcg/dL (45-160); LDL Cholesterol Calculated 115 mg/dL (<100); Percent Iron Saturation 53 % (15-50); Potassium 4.1 mmol/L (3.3-5.1); Sodium 140 mmol/L (135-145); Total Iron Binding Capacity 295 mcg/dL (228-428); Total Protein 6.5 g/dL (6.5-8.0); Triglycerides 113 mg/dL (<150); Unsaturated Iron Binding 139 ug/dL
[2023-11-06 08:07] LABS: Ferritin 66 ng/mL (20-250); Vitamin D 25-OH Total 69.8 ng/mL (>30)
[2023-11-06 08:16] LABS: Folate 13.4 ng/mL (> or = 4.0); Vitamin B12 > 2000 pg/mL (200-900)
[2023-11-10 15:39] LABS: Zinc 62 mcg/dL (60-130)
[2023-11-13 18:28] LABS: Vitamin A 60 mcg/dL (38-98)
[2023-11-14 11:03] LABS: Vitamin B1 23 nmol/L (8-30)
== END 2023-11-06 06:02 | disposition home or self-care (01) ==
LOC: HO.LAB 06:01
PROVIDERS: PCP Physician Assistant; Visit Provider Physician Assistant Surgical
DX: E66.3 Overweight (principal); I10 Essential (primary) hypertension; E11.9 Type 2 diabetes mellitus without complications; E78.2 Mixed hyperlipidemia; R79.89 Other specified abnormal findings of blood chemistry
CPT/HCPCS: 36415; 80048; 80061; 80076; 82306; 82607; 82728; 82746; 83540; 84425; 84590; 84630; 85025

== ENCOUNTER 2023-11-11 08:02 | Outpatient (AMB) | payer MEDICARE, SELFPAY ==
--- NOTE | 2023-11-11 08:08 | A.OFFVIS_ITS ---
VS Expanded 11/11/23 08:22 BP 149/70 H Blood Pressure Location Rt brachial Blood Pressure Position Sitting Pulse 68 Pulse Source Palpation Temp 97.2 F Temperature Source Temporal Artery Scan Pulse Oximetry 97 Oxygen Delivery Method Room Air Height 6 ft 5 in Weight 257 lb BMI 30.5 Body Fat % 42.3 Body Fat Mass 108.6 Fat Free Mass 148.2 Visceral Fat Rating 12.0 Body Water % 40.8 Body Water Mass 104.8 Muscle Mass/Score 140.6 Basal Metabolic Rate/Score 2,048 Intake Visit Reasons: OV PO SWL 07/14/21 General Production Worker Required: No Allergies No Known Allergies [No Known Allergies*] Allergy (Verified 11/11/23 08:18) Medication List - Last Reconciled 11/11/23 by BIJAL Weeks No Known Home Meds HPI Comments Details: Patient is a pleasant 68-year-old male returns to the office today in follow-up. He has a history of sleeve gastrectomy performed 07/14/2021, panniculectomy performed 08/09/2022 and laparoscopic cholecystectomy performed 02/27/2023. His weight today is 257 pounds with a BMI of 30.5. 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 Meal plan: 5 am RTD Premier protein 9 am 2 eggs, 1 piece of toast then snacking on crackers and pretzels 230 pm fit crunch bar 5 pm meal, not measuring yogurt Drinkin oz water Exercise plan: 1-2 days per week gym rowing 30 min, 175 calories weights PFSH Medical History Hx of panniculitis Postgastrectomy malabsorption Diastolic dysfunction Steatosis, liver BMI 33.0-33.9,adult Lumbar disc disease Arthritis Elevated cholesterol Vitamin D deficiency Migraines DJD (degenerative joint disease) Obesity (BMI 30.0-34.9) Tendinopathy of left shoulder Colon cancer screening Surgical History Hx laparoscopic cholecystectomy S/P laparoscopic sleeve gastrectomy History of repair of hiatal hernia Hx of tooth extraction H/O colonoscopy Hx of arthroscopic knee surgery Rupture of right patellar tendon Hernia Family History Father Diabetes Heart problem Mother Breast cancer Diverticulitis Social History Household Members: Spouse Housing: House Are you a primary child care associate to a significant other at home: No Do you presently have visiting nurse or other home services: No Alcohol intake: current Alcohol intake frequency: holidays/special occasions only Comment: none Patient Tobacco Use Status: Former Tobacco user Tobacco use type: Cigarette Years Smoked: 10 e-Cigarette/Vaping Use: Never Used Second Hand Smoke Exposure: No Advance Directives Date on File: 07/04/21 service: No Current occupational status: retired Cognitive needs: No Hearing needs: No Vision needs: Yes Physical Exam Vital Signs: Last Vital Signs Temp 97.2 F 11/11/23 08:22 Pulse 68 11/11/23 08:22 BP 149/70 H 11/11/23 08:22 Pulse Ox 97 11/11/23 08:22 Oxygen Delivery Method Room Air 11/11/23 08:22 BMI result Body Mass Index 30.5 Const General: healthy appearing and no acute distress Resp Effort & Inspection: normal respiratory effort Auscultation: clear to auscultation bilaterally Cardio Rate: regular rate Rhythm: regular rhythm GI Auscultation: normal bowel sounds Extrem General: Yes normal to inspection Assessment & Plan Assessment & Plan (1) Obese: Code(s): E66.9 - Obesity, unspecified Category: Medical Qualifiers: Obesity type: due to excess calories Obesity classification: adult class 1 (BMI 30 - 34.9) Serious obesity comorbidity presence: without serious comorbidity Body mass index: BMI 32.0-32.9 Qualified Code(s): E66.09 - Other obesity due to excess calories; Z68.32 - Body mass index [BMI] 32.0-32.9, adult Plan: Patient will return to a structured meal plan: Ready to drink Premier protein shake Two eggs with veggies Fit crunch bar Meal with 8 forks protein and 8 forks vegetables Encouraged to increase his exercise as able to a goal of 300 calories burned daily. Suggest weights then cardio, 15 minutes weight is 45 minutes cardio. Return to clinic 2 months, text weekly with weights and if any questions or concerns.
[2023-11-11 08:22] VITALS: BP 149/70; PULSE 68; TEMP 36.2; O2SAT 97; BMI 30.5
== END 2023-11-11 08:45 | disposition home or self-care (01) ==
PROVIDERS: PCP Physician Assistant; Visit Provider Physician Assistant Surgical
DX: E66.09 Other obesity due to excess calories (principal); Z68.32 Body mass index [BMI] 32.0-32.9, adult
CPT/HCPCS: 99213

== ENCOUNTER → 2023-11-11 08:02 | Outpatient (BNVA) | payer MEDICARE, SELFPAY | PROVIDERS: PCP Physician Assistant; Visit Provider Physician Assistant Surgical | DX: E66.09 Other obesity due to excess calories (principal); Z68.32 Body mass index [BMI] 32.0-32.9, adult; Z71.3 Dietary counseling and surveillance; Z98.84 Bariatric surgery status | CPT/HCPCS: 99212 ==

== ENCOUNTER 2023-11-27 07:29 | Outpatient (AMB) | payer MEDICARE, SELFPAY ==
[2023-11-27 07:43] VITALS: BP 122/70; PULSE 65; O2SAT 98; BMI 30.6
--- NOTE | 2023-11-27 07:43 | A.OFFVIS_ITS ---
Intake Vital Signs 11/27/23 07:43 Height 6 ft 5 in Weight 258 lb BMI 30.6 BP 122/70 Blood Pressure Location Lt brachial Position Sitting Pulse 65 Pulse Source Pulse Oximeter Pulse Oximetry (%) 98 Oxygen Delivery Method Room Air Intake Visit Reasons: AWV Allergies No Known Allergies [No Known Allergies*] Allergy (Verified 11/27/23 07:56) Medication List - Last Reconciled 11/27/23 by Jorge Parikh PA-C No Known Home Meds HPI AWV HPI Details Patient is a 68-year-old male here today for a follow-up visit ?Patient has a past medical history significant for HTN, obesity and ho type 2 diabetes, s/p bariatrics sugery. Today we discussed patient is in the life planning And [place] of care. We also reviewed patient's comprehensive care plan which was scanned into chart. Colorectal cancer screening: Colonoscopy done in 2021, repeat 5 years Vaccines: Up-to-date with COVID vaccine, pneumonia vaccine, tetanus vaccine and shingles vaccine HPI Comments History of Present Illness Details reviewed past medical history- yes reviewed surgical / hospitalization history- yes reviewed current medications- yes reviewed family history- yes home safety throw rugs? grab bars? raised toilet seat? working smoke detectors? activities of daily living difficulty bathing or showering? difficulty dressing? difficulty using the toilet? difficulty getting in and out of bed? difficulty walking? receives help from other person's with any of the above tasks? instrumental activities of daily living uses telephone - gets to place out of walking distance- go shopping for groceries- repairs own meals- does own minor home maintenance- does own laundry- does own housework- manages own money- currently takes medication- end of life planning discussed advanced directives- yes advanced directives on file? discussed wishes expressed in advanced directives. fall risk have you had any falls with injuries in the past year? have you had 2 or more falls in the past year? fall risk assessment: [facility]LY [facility], [facility] Medical History Hx of panniculitis Postgastrectomy malabsorption Diastolic dysfunction Steatosis, liver BMI 33.0-33.9,adult Lumbar disc disease Arthritis Elevated cholesterol Vitamin D deficiency Migraines DJD (degenerative joint disease) Obesity (BMI 30.0-34.9) Tendinopathy of left shoulder Colon cancer screening Surgical History Hx laparoscopic cholecystectomy S/P laparoscopic sleeve gastrectomy History of repair of hiatal hernia Hx of tooth extraction H/O colonoscopy Hx of arthroscopic knee surgery Rupture of right patellar tendon Hernia Family History Father Diabetes Heart problem Mother Breast cancer Diverticulitis Social History Household Members: Spouse Housing: House Are you a primary health care law specialist to a significant other at home: No Do you presently have visiting nurse or other home services: No Alcohol intake: current Alcohol intake frequency: holidays/special occasions only Comment: none Patient Tobacco Use Status: Former Tobacco user Tobacco use type: Cigarette Years Smoked: 10 e-Cigarette/Vaping Use: Never Used Second Hand Smoke Exposure: No Advance Directives Date on File: 07/04/21 service: No Current occupational status: retired Cognitive needs: No Hearing needs: No Vision needs: Yes Questionnaire Medicare Wellness Checkup [age] What gender do you identify with?: male During the past 4 weeks, how much have you been bothered by emotional problems such as feeling anxious, depressed, irritable, sad or downhearted, and blue?: not at all During the past 4 weeks, has your physical & emotional health limited your social activities with family, friends, neighbors, or groups?: not at all During the past 4 weeks, how much bodily pain have you generally had?: very mild pain During the past 4 weeks, was someone available to help you if you needed & wanted help?: yes, as much as I wanted During the past 4 weeks, what was the hardest physical activity you could do for at least 2 minutes?: heavy Can you get to places out of walking distance without help? (For eg., can you travel alone on buses, taxis or drive your car?): Yes Can you go shopping for groceries or clothes without someone's help?: Yes Can you prepare your own meals?: Yes Can you do your housework without help?: Yes Because of any health problems, do you need the help of another person with your personal care needs such as eating, bathing, dressing or getting around the house?: No Can you handle your own money without help?: Yes During the past 4 weeks, how would you rate your health in general?: good During the past 4 weeks how have things been going for you?: good & bad parts about equal Are you having difficulties driving your car?: no Do you always fasten your seat belt when you are in a car?: yes, usually During past 4 weeks, have you been bothered by the following: never: Falling or dizzy when standing up, Trouble eating well?, Teeth or denture problems?, Problems using the telephone? and Tiredness or fatigue? and often: Sexual problems? Have you fallen 2 or more times in the past year?: No Are you afraid of falling?: No Are you a smoker?: no During the past 4 weeks, how many drinks of wine, beer, or other alcoholic beverages did you have?: 1 drink or less per week Do you exercise for about 20 minutes 3 or more times a week?: yes, most of the time Have you been given information to help with the following?: no: Hazards in your house that might hurt you? and no: Keeping track of your medications? How often do you have trouble taking medicines the way you have been told to take them?: I do not have to take medicine How confident are you that you can control & manage most of your health problems?: very confident What is your race?: White Mini Mental State Exam (MMSE) Orientation What is the (year) (season) (date) (day) (month)?: year Where are we (state) (county) (town or city) (hospital) (floor)?: town or city Attention & Calculation (CHOOSE ONE) Ask pt to begin with 100 & count backward by 7. Stop after 5 repeats. If pt cannot ask them to spell the word WORLD backward.: 79 Spell WORLD backwards (DLROW): 5 letters Score Score: 8 Activity of Daily Living Bathing - sponge bath, tub bath or shower: receives no assistance (gets in/out by self, if usual bathing means Dressing - getting clothes from closets & drawers, including inner/outer garments & fasteners.: gets clothes & gets completely dressed without help Transfer: moves in & out of bed and chair without help (may use support object) Continence: controls urination/bowel movements completely by self Feeding: feeds self without help Total Score: 0 Information obtained from: patient Using telephone: independent Traveling: independent Shopping: independent Preparing meals: independent Housework: independent Taking medicine: independent Managing money: independent PHQ-9 Over the last 2 weeks, how often have you been bothered by any of the following problems? 1. Little interest or pleasure in doing things: not at all 2. Feeling down, depressed, or hopeless: not at all 3. Trouble falling or staying asleep, or sleeping too much: not at all 4. Feeling tired or having little energy: not at all 5. Poor appetite or overeating: not at all 6. Feeling bad about yourself - or that you are a failure or have let yourself or your family down: not at all 7. Trouble concentrating on things, such as reading the newspaper or watching television: not at all 8. Moving or speaking so slowly that other people could have noticed. Or the opposite - being so fidgety or restless that you have been moving around a lot more than usual: not at all 9. Thoughts that you would be better off or of hurting yourself in some way: not at all Total score: 0 Depression Screening Interpretation: Negative Depression Screening Done: Yes 12447 - PHQ-9 Billing: Yes Source: Developed by Drs. Brooks Palacios, Aurora Shields, Chris Foster and colleagues, with an educational lolly from [employer]. Thrive Questionnaire Date Thrive assessed: 11/27/23 I am a: Patient What is your living situation today?: I have a steady place to live Within the past 12 months, did the food you bought not last and you didn't have the money to get more?: Never true Within the past 12 months, did you worry whether your food would run out before you got money to buy more?: Never true Do you have trouble paying for medicines?: No Do you have trouble getting transportation to medical appointments?: No Do you have trouble paying your heating and electricity bill?: No Do you have trouble taking care of your child, family member or friend?: No Do you have trouble with day-to-day activities such as bathing, preparing meals, shopping, managing finances, etc.?: No Are you currently unemployed and looking for a job?: No Are you interested in more education?: No Please select the resources that you would like help with: None Currently or been in a relationship where the following occur: No concerns reported THRIVE Score: 0 RAIN-7 AMB Questionnaire RAIN-7 Date RAIN - 7 assessed: 11/27/23 Feeling nervous, anxious, or on edge: 0 = Not at all Not being able to stop or control worryin = Not at all Worrying too much about different things: 0 = Not at all Trouble relaxin = Not at all Being so restless that it is hard to sit still: 0 = Not at all Becoming easily annoyed or irritable: 0 = Not at all Feeling afraid as if something awful might happen: 0 = Not at all Total RAIN-7 score (0-4 normal; 5-9 mild; 10-14 moderate; 15-21 severe): 0 Source: Developed by Drs. Brooks Palacios, Aurora Shields, Chris Foster and colleagues, with an educational lolly from [employer]. RAIN-7 Assessment Billing RAIN-7 Assessment Tool: RAIN-7 Assessment 54304 Physical Exam Vital Signs: Last Vital Signs Pulse 65 11/27/23 07:43 BP 122/70 11/27/23 07:43 Pulse Ox 98 11/27/23 07:43 Oxygen Delivery Method Room Air 11/27/23 07:43 BMI result Body Mass Index 30.6 HEENT Other: hearing screening whisper test- pass Eyes Other: vision screening- wearing corrective lenses 20/ 20 OS OD OU Other: urinary incontinence? no Neuro Other: balance Romberg- normal tandem walk test- able walk-in turned test- able rise from sit to stand- within 2 seconds Assessment & Plan Assessment & Plan (1) Annual wellness visit: Code(s): Z00.00 - Encounter for general adult medical examination without abnormal findings Plan: As per HPI Orders: Orders 2 Hemoglobin A1c 6 Months E11.9 - Type 2 diabetes mellitus without complications Complete Blood Count no Diff 6 Months E78.2 - Mixed hyperlipidemia Prostate Specific Antigen Scr 6 Months E78.2 - Mixed hyperlipidemia, Z12.5 - Encounter for screening for malignant neoplasm of prostate Comprehensive Burns. Panel Fast 6 Months E11.9 - Type 2 diabetes mellitus without complications Lipid Panel 6 Months E78.2 - Mixed hyperlipidemia Microalbumin, Random (w Creat) 6 Months E11.9 - Type 2 diabetes mellitus without complications Quality Reporting (2019) Depression/Bipolar (159/160/161/177) PHQ-9: Total score: 0 Coding Level of Care Code Medicare Subsequent (G0439) Diagnoses Annual wellness visit Z00.00 CPT Codes Advance Care Planning - Time spent: 1-15 minutes, on File ([id number]) Additional Codes RAIN-7 Assessment Billing - RAIN-7 Assessment Tool: RAIN-7 Assessment 13508 ([id number]) Advance Care Planning Advance Care Planning discussion: Completed/Scanned Date of discussion: 11/27/23 Forms completed: MOLST Time spent: 1-15 minutes, on File Actual minutes spent: 6
== END 2023-11-27 08:20 | disposition home or self-care (01) ==
PROVIDERS: PCP Physician Assistant; Visit Provider Physician Assistant
DX: Z00.00 Encounter for general adult medical examination without abnormal findings (principal)
CPT/HCPCS: 1123F; G0439

== ENCOUNTER 2025-02-22 05:59 | Outpatient (REF) | payer MEDICARE, SELFPAY ==
--- OUTSIDE RECORDS SUMMARY | 2023-09-18 04:15 | XMS_ITS ---
Author Organization [facility] Address [address] [place] [address] Care Team Providers Care Plant Sciences Professor Name Role Phone Jorge Parikh Primary Care Provider Unavailab Alejandra Espinal Unavailable [phone] Elliott Encounters Encounter Location Date Provider Diagnosis [address] [address] 09/18/2023 Alejandra Laughlin Plan Of Treatment No Information Progress Notes * Brooks BOWER LDOB:1954 (70 yo M)Acc No.[id number]:09/18/2023 Progress Note Patient: Brooks SABA Provider: Shon Laughlin DPM :1955 A ge:68 Y S ex:Male Date:09/18/2023 Address:[address] [place], [place] [id number] Pcp:Jorge Parikh Subjective: * Chief Complaints: * [address] Elliott[address] * Medical History: Objective: * Vitals: Assessment: Plan: * Treatment: * Images: * The named appointment provid er may or may not be the originator of this progress note, and it is not deemed complete until electronically signed by the appointment provider. Sign off status: Pending * Provider: Shon Laughlin DPM Date: 0 09/18/2023 Generated for Printi ng/Faxing/eTransmitting on: 1 04/25/2024 06:02 AM EST
--- OUTSIDE RECORDS SUMMARY | 2025-02-22 06:02 | XMS_ITS | Patient Health Record ---
Author Organization [facility] [address] Address [address] [place] [address] Care Team Providers Care Nutrition Counselor Name Role Phone Jorge Parikh Primary Care Provider Unavailab Alejandra Espinal Unavailable [phone] Allergies No Known Allergies Reason For Referral No Information Medications Medication SIG (Take, Route, Frequency, Duration) Notes Start Date End Date Status Co Q 10 Active [place] 3 Unknown Topamax migraines Not-Taking Calcium 1 tab Oral Unknown Percocet 5-325 MG 1-2 tablet as needed Orally every 4-6 hrs as needed for pain; Duration: 5 days 08/01/2022 Not-Taking Simvastatin 20 MG as directed Orally Once a day Not-Taking Multivitamin Active Extra Depth Orthopedic Shoes (1 Pair) with Customized Heat Molded Multidensity Innersoles (3 Pair) as directed Dx: NIDDM/Polyneuropathy (E11.42), Hammertoe Foot Deformity (M20.41,M20.42), Preulcerative Skin Lesion(s) (L85.1 Active Aspirin Active Magnesium Active Immunizations Vaccine Route Administration Date Status Comme nts Influenza Unknown 12/27/2020 Administered Influenza Unknown 12/25/2021 Administered Influenza Unknown 11/26/2022 Administered COVID-19 Pfizer BioNTech Vaccine Unknown 12/28/2020 Administered 1ST Dose: 06/01/2020 2nd Dose 06/24/2020 Social History Tobacco Use: Social History Observation Description Date Details (start date - stop date) Former Smoker NA - NA Tobacco Use/Smoking Question Answer Notes Are you a: former smoker Additional Findings: Tobacco User Heavy cigarett e smoker (20-39 cigs/day) Additional Findings: Tobacco Non-User Current no n-smoker Alcohol Screen Question Answer Notes Did you have a drink contain ing alcohol in the past year? Yes How often did you have a dri nk containing alcohol in the past year? Monthly or less (1 point) How often did you have 6 or more drinks on one occasion in the past year? Weekly (3 points) Points 4 Interpretation Positive Tobacco use other than smoking: Question Answer Notes Are you an other tobacco user? No Problems Problem Type SNOMED Code ICD Code Onset Dates Problem Status W/U Status Risk Notes Problem Acquired hammer toe of right foot (419285242208103 5) Other hammer toe(s) (acquired), right foot (M20.41) Active confirmed Problem Metatarsalgia of right foot (165836621869278 ) Metatarsalgia, right foot (M77.41) Active confirmed Problem Metatarsalgia of left foot (036247927658137 ) Metatarsalgia, left foot (M77.42) Active confirmed Problem Acquired hammer toe of right foot (725651377735154 5) Hammer toe of right foot (M20.41) Active confirmed Improvement Problem Acquired hammer toe of left foot (233196199596263 3) Hammer toe of left foot (M20.42) Active confirmed Improvement Problem Polyneuropathy due to type 2 diabetes mellitus (587352563) Type 2 diabetes mellitus with polyneuropathy (E11.42) Active confirmed Problem Localized, primary osteoarthritis of the ankle and/or foot (398878094) 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.072) Active confirmed Problem Acquired hammer toe of left foot (541873168965568 3) Hammertoe of left foot (M20.42) Active confirmed Plan Of Treatment Pending Test Test Name Order Date X ray : Foot, left 3V 01/13/2021 X ray : Foot, left 3V 07/11/202289161, [id number]/INJECT, JOINT/BURSA 1 [id number] TENDON SHEATH/LIGAMENT 0 04/05/2021 Insurance Providers Payer Name Payer Address Payer Phone Subscriber Number Group Number Insured Name Patient Relationship to Insured Coverage Start Date Coverage End Date Medicare [employer] [address] [place] [place] [address] [id number] Brooks Bower Self - patient is the insured A[employer] Secondary to Medicare [address] [place] [address] [id number] Brooks Bower Self - patient is the insured Medical (General) History Medical History History ICD Code Arthritis Chicken pox Measles Mumps Headaches/Migraines Surgical History Surgery Date(Month/Year) knee surgery 12/12/00 Ruptured Quad 07/23/2018 Routine Colonoscopy excision ganglion cyst left P/B 08/02/19 Pinectomy- removal of excess skin Gall bladder surgery 03/16
[2025-02-22 07:18] LABS: Hematocrit 50.4 % (42.0-52.0); Hemoglobin 17.0 g/dl (14.0-18.0); Mean Corpuscular HGB Conc 33.7 g/dl (31.0-36.0); Mean Corpuscular Hemoglobin 30.4 pg (27.0-33.0); Mean Corpuscular Volume 90.0 fL (80.0-98.0); NRBC Abs Auto 0.000 X10*3/uL (0.0-0.012); NRBC Pct Auto 0.0 /100WBC (0.0-0.2); Platelet Count 186 X10*3/uL (160-400); Red Blood Count 5.60 X10*6/uL (4.60-5.80); White Blood Count 6.8 X10*3/uL (4.8-10.8)
[2025-02-22 07:52] LABS: Alanine Aminotransferase 41 U/L (0-40); Albumin Level 4.7 g/dL (3.5-5.0); Alkaline Phosphatase 64 U/L (39-117); Anion Gap 14 (12-20); Aspartate Amino Transferase 26 U/L (5-37); Blood Urea Nitrogen 15 mg/dL (9-16); Calcium 10.0 mg/dL (8.4-10.2); Carbon Dioxide 29 mmol/L (22-29); Chloride 105 mmol/L (96-108); Cholesterol 230 mg/dL (<200); Estimated Glomerular Filt Rate > 60; HDL Cholesterol 54 mg/dL (>40); Potassium 4.6 mmol/L (3.3-5.1); Sodium 143 mmol/L (135-145); Total Protein 7.1 g/dL (6.5-8.0); Triglycerides 135 mg/dL (<150)
== END 2025-02-22 06:00 | disposition home or self-care (01) ==
LOC: HO.LAB 05:59
PROVIDERS: PCP Physician Assistant; Visit Provider Physician Assistant
DX: Z12.5 Encounter for screening for malignant neoplasm of prostate (principal); E78.2 Mixed hyperlipidemia; E11.9 Type 2 diabetes mellitus without complications
CPT/HCPCS: 36415; 80053; 80061; 82043; 82570; 83036; 84153; 85027

== ENCOUNTER 2025-02-24 09:37 | Outpatient (AMB) | payer MEDICARE, SELFPAY ==
--- OUTSIDE RECORDS SUMMARY | 2023-09-18 04:15 | XMS_ITS ---
Author Organization [facility] Address [address] [place] [address] Care Team Providers Care Automatic Grinding Machine Operator Name Role Phone Jorge Parikh Primary Care Provider Unavailab Alejandra Espinal Unavailable [phone] Elliott Encounters Encounter Location Date Provider Diagnosis [address] [address] 09/18/2023 Alejandra Laughlin Plan Of Treatment No Information Progress Notes * Brooks BOWER LDOB:1954 (70 yo M)Acc No.[id number]:09/18/2023 Progress Note Patient: Brooks SABA Provider: Shon Laughlin DPM :1955 A ge:68 Y S ex:Male Date:09/18/2023 Address:[address] [place], [place] [id number] Pcp:Jorge Parikh Subjective: * Chief Complaints: * [...] DPM Date: 0 09/18/2023 Generated for Printi ng/Faleeanng/eTransmitting on: 1 04/27/2024 10:38 AM EST
--- NOTE | 2025-02-24 09:43 | A.OFFPC_ITS ---
Vital Signs 02/24/25 09:45 Height 6 ft 5 in Weight 265 lb 6 oz BMI 31.5 BP 128/84 Respiration 14 Pulse 63 Pulse Source Pulse Oximeter Temp 97.3 F Temp Source Temporal Artery Scan Pulse Oximetry (%) 99 Oxygen Delivery Method Room Air Intake Visit Reasons: pain on feet Nonfarm Animal Caretaker Required: No Accompanied by: Self / Same As Patient Allergies No Known Allergies (No Known Allergies*) Allergy (Verified 02/24/25 09:57) Medication List - Last Reconciled 02/24/25 by Jorge Parikh PA-C No Known Home Meds Tobacco use date assessed: 05/27/23 Dental Screening Dental Screen Date: 05/27/23 HPI pain on feet HPI Details Patient is a 70-year-old male here today for a follow-up visit ?Patient has a past medical history significant for HTN, obesity and ho type 2 diabetes, s/p bariatrics sugery. .. Type 2 diabetes: Since his bariatric surgery has been off of medication in his diabetes has been diet controlled. Unfortunately has gained weight and A1c has elevated at 6.2 in a prediabetic range .. Hypertension: Blood pressure today in office acceptable today in office. He reports he has been under lot of stress as of lately, also had 2 cups of coffee this morning before his appointment. Has been off of blood pressure medications since his bariatric surgery and has been able to maintain decent blood pressure readings. .. Hyperlipidemia: Most recent lipid panel showing elevated total cholesterol and LDL, he does admit to dietary indiscretion and increased stress in his life. Not interested in returning back to cholesterol medication use.. Has been off of all cholesterol medications since his bariatric surgery. Continues to go to the gym 3 times a week. FOR[facility]LY [facility] Medical History Hx of panniculitis Postgastrectomy malabsorption Diastolic dysfunction Steatosis, liver BMI 33.0-33.9,adult Lumbar disc disease Arthritis Elevated cholesterol Vitamin D deficiency Migraines DJD (degenerative joint disease) Obesity (BMI 30.0-34.9) Tendinopathy of left shoulder Colon cancer screening Surgical History Hx laparoscopic cholecystectomy S/P laparoscopic sleeve gastrectomy History of repair of hiatal hernia Hx of tooth extraction H/O colonoscopy Hx of arthroscopic knee surgery Rupture of right patellar tendon Hernia Family History Father Diabetes Heart problem Mother Breast cancer Diverticulitis Social History Household Members: Spouse Housing: House Are you a primary critical care nurse to a significant other at home: No Do you presently have visiting nurse or other home services: No Alcohol intake: current Alcohol intake frequency: holidays/special occasions only Comment: none Patient Tobacco Use Status: Former Tobacco user Tobacco use type: Cigarette Years Smoked: 10 e-Cigarette/Vaping Use: Never Used Second Hand Smoke Exposure: No Advance Directives Date on File: 07/04/21 service: No Current occupational status: retired Cognitive needs: No Hearing needs: No Vision needs: Yes Questionnaire PHQ-9 Over the last 2 weeks, how often have you been bothered by any of the following problems? 1. Little interest or pleasure in doing things: not at all 2. Feeling down, depressed, or hopeless: not at all 3. Trouble falling or staying asleep, or sleeping too much: not at all 4. Feeling tired or having little energy: not at all 5. Poor appetite or overeating: not at all 6. Feeling bad about yourself - or that you are a failure or have let yourself or your family down: several days 7. Trouble concentrating on things, such as reading the newspaper or watching television: not at all 8. Moving or speaking so slowly that other people could have noticed. Or the opposite - being so fidgety or restless that you have been moving around a lot more than usual: not at all 9. Thoughts that you would be better off or of hurting yourself in some way: not at all Total score: 1 Depression Screening Interpretation: Negative Depression Screening Done: Yes 44366 - PHQ-9 Billing: Patient declined-do not bill Source: Developed by Drs. Brooks Palacios, Aurora Shields, Chris Foster and colleagues, with an educational lolly from [employer]. Thrive Questionnaire Date Thrive assessed: 11/27/23 I am a: Patient What is your living situation today?: I have a steady place to live Within the past 12 months, did the food you bought not last and you didn't have the money to get more?: Never true Within the past 12 months, did you worry whether your food would run out before you got money to buy more?: Never true Do you have trouble paying for medicines?: No Do you have trouble getting transportation to medical appointments?: No Do you have trouble paying your heating and electricity bill?: No Do you have trouble taking care of your child, family member or friend?: No Do you have trouble with day-to-day activities such as bathing, preparing meals, shopping, managing finances, etc.?: No Are you currently unemployed and looking for a job?: No Are you interested in more education?: No Please select the resources that you would like help with: None Currently or been in a relationship where the following occur: No concerns reported THRIVE Score: 0 AUDIT C Alcohol Use Questionnaire (AUDIT-C) 1. How often do you have a drink containing alcohol?: Monthly or less 2. How many drinks containing alcohol do you have on a typical day when you are drinking?: 1 or 2 3. How often do you have six or more drinks on one occasion?: Never Total Score: 1 RAIN-7 AMB Questionnaire RAIN-7 Date RAIN - 7 assessed: 11/27/23 Feeling nervous, anxious, or on edge: 0 = Not at all Not being able to stop or control worryin = Not at all Worrying too much about different things: 0 = Not at all Trouble relaxin = Not at all Being so restless that it is hard to sit still: 0 = Not at all Becoming easily annoyed or irritable: 0 = Not at all Feeling afraid as if something awful might happen: 0 = Not at all Total RAIN-7 score (0-4 normal; 5-9 mild; 10-14 moderate; 15-21 severe): 0 Source: Developed by Drs. Brooks Palacios, Aurora Shields, Chris Foster and colleagues, with an educational lolly from [employer]. Review of Systems Const Denies headache(s) Eyes Denies loss of vision ENT Denies vertigo, Denies dizziness, Denies headache(s) and Denies sore throat Card Denies chest pain, Denies leg edema and Denies lightheadedness Resp Denies cough, Denies hemoptysis and Denies wheezing GI Denies abdominal pain, Denies melena, Denies constipation, Denies diarrhea and Denies vomiting Denies dysuria, Denies urinary frequency and Denies urinary urgency Musc Denies arthralgias, Denies joint swelling, Denies numbness and Denies tingling Neuro Denies Abnormal speech present, Denies behavioral changes, Denies vertigo, Denies dizziness, Denies headache(s), Denies loss of vision, Denies memory loss, Denies numbness and Denies tingling Psych Denies anxiety, Denies behavioral changes, Denies depression, Denies memory loss and Denies panic attacks Eamon/Lymph Denies easy bleeding and Denies easy bruising Aller/Immun Denies wheezing Physical exam (Primary Care) Vital Signs: Last Vital Signs Temp 97.3 F 02/24/25 09:45 Pulse 63 02/24/25 09:45 Resp 14 02/24/25 09:45 BP 128/84 02/24/25 09:45 Pulse Ox 99 02/24/25 09:45 Oxygen Delivery Method Room Air 02/24/25 09:45 BMI result Body Mass Index 31.5 BMI Assessment/Plan discussion: High BMI High, discussed plan: lifestyle, weight reduction, dietary and physical activity Tobacco/Smoking Status: Tobacco use Status Tobacco use date assessed 05/27/23 02/24/25 09:47 Patient Tobacco Use Status Former Tobacco user 02/24/25 09:47 Tobacco use type Cigarette 02/24/25 09:47 e-Cigarette/Vaping Use Never Used 02/24/25 09:47 PHQ-9: PHQ-9 Score PHQ-9: Total score 1 02/24/25 09:47 Depression Screening Interpretation: Negative Thrive Assessment: Date of Thrive Assessment Date Thrive assessed 11/27/23 02/24/25 09:47 Currently or been in a relationship where the following occur: No concerns reported Const General: healthy appearing, no acute distress, alert and awake Nutritional Appearance: well nourished Orientation/consciousness: oriented to person, oriented to place and oriented to time HENMT Ears: TM's normal bilaterally General nose exam: Normal nasal mucous membranes and turbinates present Eyes Conjunctivae: conjunctivae normal Sclerae: sclerae normal Pupils: Equal, round and reactive pupils present Neck Neck: Yes no lymphadenopathy and Yes no JVD Thyroid: Thyroid normal Carotids: no bruits Resp Effort & Inspection: normal respiratory effort and not tachypneic Auscultation: no crackles, no rales, no rhonchi and no wheezes Cardio Rate: regular rate Rhythm: regular rhythm Heart sounds: no murmurs and normal S1 and S2 GI Palpation (GI): Soft to palpation, nontender, no hepatomegaly and no splenomegaly Auscultation: normal bowel sounds Skin General skin exam: no rashes or lesions noted and dry skin Neuro General: oriented to person, oriented to place and oriented to time Cranial nerves: Yes Equal, round and reactive pupils present Speech: No Abnormal speech present Gait exam (Neuro): Normal gait present Motor exam (neuro): no tremor noted Extrem Right upper extremity: full ROM Left upper extremity: full ROM Right lower extremity: full ROM; no edema Left lower extremity: full ROM; no edema Psych Mental Status: mental status grossly normal Speech and movement: Normal speech and movement present Affect: normal affect Attitude: cooperative Thought process: Normal thought process present Coding Level of Care Code Est Pt Level 4 (83352) Diagnoses Type 2 diabetes mellitus without complication, without long-term current use of insulin E11.9 Diabetes mellitus tank terminal gauger insulin use: without tank terminal gauger use Diabetes mellitus complication status: without complication Mixed hyperlipidemia E78.2 Hyperlipidemia type: mixed hyperlipidemia Primary hypertension I10 Hypertension type: primary hypertension Assessment & Plan Assessment & Plan (1) DMII (diabetes mellitus, type 2): Code(s): E11.9 - Type 2 diabetes mellitus without complications Category: Medical Qualifiers: Diabetes mellitus fdc insulin use: without tank terminal gauger use Diabetes mellitus complication status: without complication Qualified Code(s): E11.9 - Type 2 diabetes mellitus without complications Plan: Patient has a history of type 2 diabetes, has been able to manage his blood sugars with dietary and lifestyle modification. He is status post bariatric surgery. Most recent A1c is 6.2 which has a jump up from his previous. He will continue working on lifestyle and dietary modifications. (2) HLD (hyperlipidemia): Code(s): E78.5 - Hyperlipidemia, unspecified Category: Medical Qualifiers: Hyperlipidemia type: mixed hyperlipidemia Qualified Code(s): E78.2 - Mixed hyperlipidemia Plan: Most recent lipid panel showing borderline high total cholesterol and an elevated LDL. He does admit to some dietary indiscretion as of late and increased stress in his personal life. He is not interested in returning back to cholesterol medication at this time and work on lifestyle and dietary modification. Goal LDL is to be below 100 (3) HTN (hypertension): Code(s): I10 - Essential (primary) hypertension Category: Medical Qualifiers: Hypertension type: primary hypertension Qualified Code(s): I10 - Essential (primary) hypertension Plan: Patient's blood pressure acceptable today in office. Will continue with lifestyle modifications as above. Goal blood pressures to be below 140/90 Orders: Orders Lipid Panel Today E78.2 - Mixed hyperlipidemia Microalbumin, Random (w Creat) Today E11.9 - Type 2 diabetes mellitus without complications Comprehensive [place]. Panel Fast Today E11.9 - Type 2 diabetes mellitus without complications Complete Blood Count no Diff Today E78.2 - Mixed hyperlipidemia Uric Acid Today M10.9 - Gout, unspecified Hemoglobin A1c Today E11.9 - Type 2 diabetes mellitus without complications Prostate Specific Antigen Scr Today E11.9 - Type 2 diabetes mellitus without complications, Z12.5 - Encounter for screening for malignant neoplasm of prostate
[2025-02-24 09:45] VITALS: BP 128/84; PULSE 63; RESP 14; TEMP 36.3; O2SAT 99; BMI 31.5
--- OUTSIDE RECORDS SUMMARY | 2025-02-24 10:39 | XMS_ITS | Patient Health Record ---
Author Organization [facility] [place] Address [address] [place] [address] Care Team Providers Care Visiting Housekeeper Name Role Phone Jorge Parikh Primary Care Provider Unavailab Alejandra Espinal Unavailable [phone] Allergies No Known Allergies Reason For Referral No Information Medications Medication SIG (Take, Route, Frequency, Duration) Notes Start Date End Date Status Co Q 10 Active [place] 3 Unknown Topamax migraines Not-Taking Calcium 1 [...] Problem Acquired hammer toe of right foot (482699190986558 5) Other hammer toe(s) (acquired), right foot (M20.41) Active confirmed Problem Metatarsalgia of right foot (981427885140663 ) Metatarsalgia, right foot (M77.41) Active confirmed Problem Metatarsalgia of left foot (630576990069710 ) Metatarsalgia, left foot (M77.42) Active confirmed Problem Acquired hammer toe of right foot (099463465345945 5) Hammer toe of right foot (M20.41) Active confirmed Improvement Problem Acquired hammer toe of left foot (996494845007023 3) Hammer toe of left foot (M20.42) Active confirmed Improvement Problem Polyneuropathy due to type 2 diabetes mellitus (954408885) Type 2 diabetes mellitus with polyneuropathy (E11.42) Active confirmed Problem Localized, primary osteoarthritis of the ankle and/or foot (779938485) 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.072) Active confirmed Problem Acquired hammer toe of left foot (903847961238157 3) Hammertoe of left foot (M20.42) Active confirmed Plan Of Treatment Pending Test Test Name Order Date X ray : Foot, left 3V 01/13/2021 X ray : Foot, left 3V 07/11/202261663, [id number]/[id number], JOINT/BURSA 1 [id number] TENDON SHEATH/LIGAMENT 0 04/05/2021 Insurance Providers Payer Name Payer Address Payer Phone Subscriber Number Group Number Insured Name Patient Relationship to Insured Coverage Start Date Coverage End Date Medicare [employer] [address] [facility] [place] [address] [id number] Brooks Bower Self - patient is the insured A[employer] Secondary to Medicare [address] [place] [address] [id number] Brooks Bower Self - patient is the insured Medical (General) History Medical History History ICD Code Arthritis Chicken pox Measles Mumps Headaches/Migraines Surgical History Surgery Date(Month/Year) knee surgery 12/12/00 Ruptured Quad 07/23/2018 Routine Colonoscopy excision ganglion cyst left P/B 08/02/19 Pinectomy- removal of excess skin Gall bladder surgery 03/16
== END 2025-02-24 10:15 | disposition home or self-care (01) ==
LOC: HO.HMCH 09:38
PROVIDERS: PCP Physician Assistant; Visit Provider Physician Assistant
DX: E11.9 Type 2 diabetes mellitus without complications (principal); E78.2 Mixed hyperlipidemia; I10 Essential (primary) hypertension

== ENCOUNTER → 2025-02-24 09:37 | Outpatient (BNVA) | payer MEDICARE, SELFPAY | PROVIDERS: PCP Physician Assistant; Visit Provider Physician Assistant | DX: E11.9 Type 2 diabetes mellitus without complications (principal); E78.2 Mixed hyperlipidemia; I10 Essential (primary) hypertension | CPT/HCPCS: 99212 ==